=== PATIENT | male | born 1950 | race Caucasian/White ===

== ENCOUNTER → 2016-07-09 | Outpatient (CLI) | payer MEDICARE, OTHER ==
--- NOTE | 2016-07-09 15:35 | XR ---
EXAMINATION TYPE: XR lumbar spine with bend/flex DATE OF EXAM: 07/09/2016 COMPARISON: NONE HISTORY: Low back pain with TECHNIQUE: 3 view lumbar spine with weightbearing images FINDINGS: There 5 lumbar-type vertebral bodies. The pedicles are intact. Wedge deformity of L1 is pre sent. Some posterior endplate spurring at L1 is present inferiorly. Some inferior spurring is also pr esent L3. Alignment appears preserved with flexion and extension. Degenerative disc changes are present L4-5 posteriorly at L5-S1. Some mild superior endplate deformit y of L4 is present without anterior vertebral body height loss. IMPRESSION: 1. Compression deformity L1 of indeterminate age. 2. Alignment appears preserved through weight bearing flexion and extension views. 3. Superior endplate compression deformity L4. 4. Degenerative disc changes discussed above.
== END | disposition home or self-care (01) ==
LOC: RADXRMAIN 14:07
PROVIDERS: ATTEND Psychiatry & Neurology Neurology
DX: M47.816 Spondylosis without myelopathy or radiculopathy, lumbar region (principal); M43.8X6 Other specified deforming dorsopathies, lumbar region
CPT/HCPCS: 72114

== ENCOUNTER 2016-07-23 08:53 | Emergency (ER) | payer MEDICARE, OTHER ==
[2016-07-23 09:10] VITALS: RESP 18; TEMP 97.5
--- NOTE | 2016-07-23 09:22 | ED ---
Head Injury HPI - General Chief complaint: Head Injury Stated complaint: HEAD INJURY Time Seen by Provider: 07/23/16 09:13 Source: patient, RN notes reviewed Mode of arrival: wheelchair Limitations: no limitations - History of Present Illness Initial comments: 65-year-old male presents to the emergency department with a chief complaint of head injury. Patient states that he tripped over the curb yesterday and hit his head. Patient states since she's had a little bit of neck pain. Patient states he has just felt kind of off. Patient denies any pounding headache or any neurological deficits he just states that he has been feeling off so he thought maybe he has a concussion. Patient denies any use of blood thinners. Patient denies any other pain or injury from the incident. Patient states it was a supportive and fall. There is no lightheadedness dizziness chest pain or shortness of breath leading up to the event.Patient denies any recent fever, chills, shortness of breath, chest pain, back pain, abdominal pain, nausea vomiting, numbness or tingling, dysuria or hematuria, constipation or diarrhea, headaches or visual changes, or any other current symptoms. - Related Data Home Medications Medication Instructions Recorded Confirmed Hydrocodone/Acetaminophen [[place] 1 tab PO BID PRN 07/23/16 07/23/16 10-325 Tablet] Allergies/Adverse reactions: Allergies Allergy/AdvReac Type Severity Reaction Status Date / Time No Known Allergies Allergy Verified 07/23/16 10:04 Review of Systems ROS Statement: Those systems with pertinent positive or pertinent negative responses have been documented in the HPI. ROS Other: All systems not noted in ROS Statement are negative. Past Medical History Additional Past Medical History / Comment(s): hip fx History of Any Multi-Drug Resistant Organisms: None Reported Past Surgical History: Joint Replacement Additional Past Surgical History / Comment(s): facial surgery, testicular surgery Past Psychological History: No Psychological Hx Reported Smoking Status: Current every day smoker Past Alcohol Use History: Rare Past Drug Use History: Marijuana General Exam - General Exam Comments Initial Comments: General: The patient is awake and alert, in no distress, and does not appear acutely ill. Eye: Pupils are equal, round and reactive to light, extra-ocular movements are intact; there is normal conjunctiva bilaterally. No signs of icterus. Ears, nose, mouth and throat: There are moist mucous membranes and no oral lesions. Neck: The neck is supple, there is no tenderness. Cardiovascular: There is a regular rate and rhythm. No murmur, rub or gallop is appreciated. Respiratory: Lungs are clear to auscultation, respirations are non-labored, breath sounds are equal. No wheezes, stridor, rales, or rhonchi. Gastrointestinal: Soft, non-distended, non-tender abdomen without masses or organomegaly noted. There is no rebound or guarding present. No CVA tenderness. Bowel sounds are unremarkable. Back: There is no tenderness to palpation in the midline. There is no obvious deformity. No rashes noted. Musculoskeletal: Normal ROM, no tenderness, There is no pedal edema. There is no calf tenderness or swelling. Sensation intact. Pulses equal bilaterally 2+. Neurological: CN II-XII intact, There are no obvious motor or sensory deficits. Coordination appears grossly intact. Speech is normal. Skin: Skin is warm and dry and no rashes or lesions are noted. Psychiatric: Cooperative, appropriate mood & affect, normal judgment. Limitations: no limitations Course Vital Signs 07/23/16 09:06 Temperature 97.5 F L Pulse Rate 87 Respiratory 18 Rate Blood Pressure 146/85 O2 Sat by Pulse 97 Oximetry Medical Decision Making - Medical Decision Making 65-year-old male presents emergency Department chief complaint of fall with head and neck injury. At this time CT is reviewed and negative. We discussed care follow-up and return parameters. We discussed all patient's questions. He stated he understood he has a couple discharged home. He will be discharged. - Radiology Data Radiology results: report reviewed, image reviewed Disposition Clinical Impression: Concussion without loss of consciousness Disposition: HOME SELF-CARE Condition: Stable Instructions: Concussion (ED) Additional Instructions: Please use medication as discussed. Please follow up with family doctor if symptoms have not improved over the next two days. Please return to the emergency room if your symptoms increase or worsen or for any other concerns. Referrals: Nader Melara DO [STAFF PHYSICIAN] - 1-2 days Time of Disposition: 10:33
--- NOTE | 2016-07-23 10:19 | CT ---
EXAMINATION TYPE: CT brain cspine wo con DATE OF EXAM: 07/23/2016 COMPARISON: CT brain February 10, 2012. HISTORY: Fell yesterday and hit back of head with headache and neck pain. CT DLP: brain 987.8, Cervical 490.4 mGycm. Automated Exposure Control for Dose Reduction was Utilized . TECHNIQUE: CT scan of the head and cervical spine are performed without contrast. FINDINGS: There is no acute intracranial hemorrhage or midline shift identified. There is ventricul ar and sulcal prominence consistent with diffuse cerebral atrophy. There is low-attenuation in the pe riventricular white matter. There is more prominent area of encephalomalacia high left parietal lobe consistent with old infarct which is new from 2012. Soft tissue density bilateral external auditory c anals is felt to reflect cerumen. There is opacification of right anterior ethmoid sinuses new from p rior. Remainder paranasal sinuses are clear. Globes are intact. Calvarium is intact. Cervical spine is visualized in its entirety from C1 through upper thoracic levels and demonstrates s atisfactory alignment without evidence of acute fracture or dislocation. Prevertebral soft tissue ap pears within normal limits. The C1-C2 articulation is within normal limits on the coronal images. Osseous structures are demineralized. Vertebral body heights and disc space heights are fairly well-m aintained. No large posterior disc herniations are seen on sagittal images. Review of axial images sh ows multilevel left-sided uncovertebral facet degenerative changes particularly on the left. Underlyi ng emphysematous change is noted. IMPRESSION: 1. There is no acute fracture or dislocation evident in the cervical spine. 2. No acute intracranial hemorrhage or midline shift is seen. 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
[2016-07-23 10:54] VITALS: BP 133/70; PULSE 72
== END 2016-07-23 10:54 | disposition home or self-care (01) ==
LOC: EC 08:53
DX: S06.0X0A Concussion without loss of consciousness, initial encounter (principal); M54.2 Cervicalgia; F17.200 Nicotine dependence, unspecified, uncomplicated; W18.09XA Striking against other object with subsequent fall, initial encounter
CPT/HCPCS: 70450; 72125; 99283

== ENCOUNTER → 2016-07-28 | Outpatient (CLI) | payer MEDICARE, OTHER ==
--- NOTE | 2016-07-28 16:58 | MR ---
EXAMINATION TYPE: MR lumbar spine wo con DATE OF EXAM: 07/28/2016 COMPARISON: Lumbar spine 07/09/2016 HISTORY: Pain, low back pain, M 54.5 TECHNIQUE: Multiplanar, multisequence images of the lumbar spine were acquired. Exam is limited by patient's kari lity to cooperate with exam. Abdominal aorta shows a measurement of approximately 3.6 cm at the level of the hiatus. L1-L2: Minimal retrolisthesis L1 on L2, posterior extension of endplate disc complex causes anterior mass effect on the thecal sac, mild central stenosis. No definite foraminal encroachment. Inferior en dplate shows depression, there is likely a Schmorl's node. There is loss of disc height and signal. L2-L3: Facet arthropathy changes present, no significant disc herniation, foraminal encroachment, or central stenosis. L3-L4: Loss of disc height and signal is present. No definite foraminal encroachment or central steno sis. Facet arthropathy with hypertrophy of the ligamentum flavum encroaches on the lateral recesses. No cyst sizable disc herniation. L4-L5: There is near complete loss of disc space, loss of disc height and signal. No significant fora vincent encroachment or central stenosis. Facet arthropathy changes are present. Anterior aspect of the superior endplate L2 shows mild depression which may represent a Schmorl's node. L5-S1: There is facet arthropathy change. No significant central stenosis or foraminal encroachment. Loss of disc signal compatible disc desiccation. No evident disc herniation. Lumbar segments are intact. No paraspinal masses are identified. Conus medullaris has a normal appe arance. IMPRESSION: The exam is limited. There are degenerative disc changes, facet arthropathy. Motion on the exam. Mult ilevel Schmorl's node formation. There is aortic aneurysm.
== END | disposition home or self-care (01) ==
LOC: RADMRIMAIN 14:33
PROVIDERS: ATTEND Psychiatry & Neurology Pain Medicine
DX: M47.816 Spondylosis without myelopathy or radiculopathy, lumbar region (principal); M46.86 Other specified inflammatory spondylopathies, lumbar region
CPT/HCPCS: 72148

== ENCOUNTER 2016-09-18 21:19 | Observation (INO) | payer MEDICARE, OTHER ==
[2016-09-18] MEDS ORDERED: ASPIRIN 81 MG PO STA (22:00)
[2016-09-18 22:13] LABS: Basophils % (A) 0 %; CH 31.7; CHCM 33.4; Eosinophils # (A) 0.8 k/uL (0-0.7); Eosinophils % (A) 8 %; HCT 47.7 % (39.0-53.0); HDW 2.26; HGB 15.8 gm/dL (13.0-17.5); Luc # (Auto) 0.17; Luc % (Auto) 2; Lymphocytes # (A) 2.3 k/uL (1.0-4.8); Lymphocytes % (A) 23 %; MCH 31.7 pg (25.0-35.0); MCHC 33.2 g/dL (31.0-37.0); MCV 95.4 fL (80.0-100.0); Mean Platelet Volume 7.4; Monocytes # (A) 0.6 k/uL (0-1.0); Monocytes % (A) 7 %; Neutrophils % (A) 60 %; RDW 14.2 % (11.5-15.5); WBC 9.9 k/uL (3.8-10.6)
[2016-09-18 22:22] LABS: ALT 24 U/L (21-72); AST 20 U/L (17-59); Alkaline Phosphatase 113 U/L (38-126); Anion Gap 8 mmol/L; Blood Urea Nitrogen 11 mg/dL (9-20); Calcium 8.4 mg/dL (8.4-10.2); Carbon Dioxide 24 mmol/L (22-30); Chloride 109 mmol/L (98-107); Glucose 104 mg/dL (74-99); Magnesium 1.7 mg/dL (1.6-2.3); Non-African American GFR(MDRD) >60 (>60 ml/min/1.73 sqM); Potassium 4.2 mmol/L (3.5-5.1); Sodium 141 mmol/L (137-145); Total Bilirubin 0.4 mg/dL (0.2-1.3); Total Protein 6.3 g/dL (6.3-8.2)
--- NOTE | 2016-09-18 22:22 | XR ---
EXAMINATION TYPE: XR chest 1V portable DATE OF EXAM: 09/18/2016 COMPARISON: 02/10/2012 HISTORY: Pain TECHNIQUE: Single frontal view of the chest is obtained. FINDINGS: There is no focal air space opacity, pleural effusion, or pneumothorax seen. The cardiac silhouette size is within normal limits. The osseous structures are intact. IMPRESSION: No acute process.
[2016-09-18 22:30] LABS: Partial Thromboplastin Time 23.5 sec (22.0-30.0); Prothrombin Time 10.2 sec (9.0-12.0)
--- NOTE | 2016-09-18 22:36 | ED ---
Chest Pain HPI - General Chief Complaint: Chest Pain Stated Complaint: chest pain/body aches Time Seen by Provider: 09/18/16 21:49 Source: patient Mode of arrival: ambulatory Limitations: no limitations - History of Present Illness Initial Comments: This patient is 65-year-old man with history of COPD who presents with episodes of left chest pain and some shortness of breath that he attributes to his COPD. The patient describes the pain as a tightness. He has not noted any worsening or relieving factors. He is been having a number of episodes over the past days. MD Complaint: chest pain -: hour(s) Onset: during rest Pain Location: left chest Severity: moderate Quality: aching Consistency: constant Improves With: nothing Worsens With: nothing Other Symptoms: cough Treatments Prior to Arrival: none - Related Data Home Medications Medication Instructions Recorded Confirmed Hydrocodone/Acetaminophen [[place] 1 tab PO BID PRN 07/23/16 09/18/16 10-325 Tablet] Allergies Allergy/AdvReac Type Severity Reaction Status Date / Time No Known Allergies Allergy Verified 09/18/16 22:33 Review of Systems ROS Statement: Those systems with pertinent positive or pertinent negative responses have been documented in the HPI. ROS Other: All systems not noted in ROS Statement are negative. Constitutional: Denies: fever, chills Respiratory: Reports: cough. Denies: dyspnea, wheezes Cardiovascular: Reports: chest pain. Denies: palpitations, edema, syncope Gastrointestinal: Denies: abdominal pain, nausea, vomiting Genitourinary: Denies: dysuria, hematuria Musculoskeletal: Denies: back pain Skin: Denies: rash Neurological: Denies: headache, weakness, numbness EKG Findings - EKG Comments: EKG Findings:: Possible old inferior infarct. - EKG Results: EKG: interpreted by ERMD, sinus rhythm, normal axis, normal ST/T EKG shows: tachycardia (Rate approximately 104 bpm) - PA, Pacemaker, Normal: Myocardial infarction: inferior PA (old age indeterminate) (Q wave in lead 3) Past Medical History Additional Past Medical History / Comment(s): hip fx History of Any Multi-Drug Resistant Organisms: None Reported Past Surgical History: Joint Replacement Additional Past Surgical History / Comment(s): facial surgery, testicular surgery, knee left Past Psychological History: No Psychological Hx Reported Smoking Status: Current every day smoker Past Alcohol Use History: Rare Past Drug Use History: Marijuana - Past Family History Father Family Medical History: Cancer Additional Family Medical History / Comment(s): colon CA Mother Family Medical History: CVA/TIA Additional Family Medical History / Comment(s): Fall with subdural hematoma Brother(s) Additional Family Medical History / Comment(s): committed suicide General Exam Limitations: no limitations General appearance: alert, in no apparent distress Head exam: Present: atraumatic, normocephalic, normal inspection Eye exam: Present: normal appearance. Absent: scleral icterus, conjunctival injection Respiratory exam: Present: normal lung sounds bilaterally. Absent: respiratory distress, wheezes, rales, rhonchi, stridor Cardiovascular Exam: Present: regular rate, normal rhythm, normal heart sounds. Absent: systolic murmur, diastolic murmur, rubs, gallop GI/Abdominal exam: Present: soft. Absent: distended, tenderness, guarding, rebound, mass Extremities exam: Present: normal inspection, normal capillary refill. Absent: pedal edema, calf tenderness Back exam: Present: normal inspection. Absent: CVA tenderness (R), CVA tenderness (L) Neurological exam: Present: alert Skin exam: Present: warm, dry, intact, normal color. Absent: rash Course Vital Signs 09/18/16 09/18/16 09/18/16 21:22 21:47 22:39 Temperature 98.7 F Pulse Rate 108 H 90 Respiratory 18 22 18 Rate Blood Pressure 126/77 130/77 O2 Sat by Pulse 96 97 Oximetry 09/19/16 09/19/16 09/19/16 00:19 01:24 02:31 Temperature 98.1 F Pulse Rate 79 74 88 Respiratory 18 16 18 Rate Blood Pressure 134/77 132/87 122/68 O2 Sat by Pulse 98 96 100 Oximetry Disposition Clinical Impression: Chest pain Disposition: ADMITTED IP TO THIS HOSP Condition: Fair
[2016-09-18] MEDS ORDERED: RX INFO: IV CONTRAST WAS GIVEN 1 EACH MISC MISCELLANE PRN (23:44)
--- NOTE | 2016-09-19 01:02 | CT ---
EXAM: CT Angiography Chest With Intravenous Contrast CLINICAL HISTORY: Reason: Pain TECHNIQUE: Axial computed tomographic angiography images of the chest with intravenous contrast using pulmonary embolism protocol. DLP is 381.20 mGy-cm. This CT exam was performed using one or more of the following dose reduction techniques: automated exposure control, adjustment of the mA and/or kV according to patient size, and/or use of iterative reconstruction technique. MIP reconstructed images were created and reviewed. COMPARISON: 09/18/16 FINDINGS: Pulmonary arteries: Unremarkable. No pulmonary embolism. Aorta: Mild atherosclerosis of the thoracic aorta. No thoracic aortic aneurysm or dissection. Lungs: Mild left basilar opacities. There is a 8 mm nodule along the right minor fissure (image [id number]) and 6 mm nodule in the left lower lobe adjacent to the fissure (image 7-17).. Mild peribronchial thickening may be related to airway disease. Mild centrilobular emphysema and atelectatic changes. Pleural space: Small left pleural effusion. No pneumothorax. Heart: Unremarkable Mediastinum: Moderate hiatal hernia. Mild esophageal wall thickening. Bones/joints: Age-indeterminate compression deformities in the spine, may be chronic. Compare to priors if available. Soft tissues: Unremarkable. Lymph nodes: Small mediastinal and hilar lymph nodes. Upper abdomen: Tiny hepatic hypodensity. IMPRESSION: 1. No evidence of pulmonary embolism or aortic dissection. 2. Small left pleural effusion with left basilar opacities which may represent atelectasis, infiltrate, or early infarct. Mild peribronchial thickening. Bilateral pulmonary nodules measuring up to 8 mm. Compare to prior studies if available or consider followup imaging per Fleischner Society recommendations. 3. Moderate hiatal hernia. Mild esophageal wall thickening. Correlate clinically for esophagitis.
[2016-09-19] MEDS ORDERED: NITROGLYCERIN SL TABS 0.4 MG TAB SUBLINGUAL PRN (01:33)
[2016-09-19] MEDS ORDERED: ALBUTEROL NEBULIZED 2.5 MG/3 ML INHALATION PRN (01:36)
[2016-09-19 03:20] VITALS: BMI 25.7
[2016-09-19 03:56] VITALS: RESP 16
[2016-09-19 04:57] LABS: Creatine Kinase 79 U/L (55-170)
[2016-09-19 05:09] LABS: Creatine Kinase MB 0.7 ng/mL (0.0-2.4); Troponin I <0.012 ng/mL (0.000-0.034)
[2016-09-19] MEDS ORDERED: ASPIRIN 325 MG TAB PO SCH (09:00)
[2016-09-19] MEDS ORDERED: REGADENOSON 0.4 MG/5 ML SYRINGE IV ONE (09:21)
[2016-09-19] MEDS ORDERED: AMINOPHYLLINE 500 MG/20 ML VIAL IV PRN (09:21)
[2016-09-19 10:27] LABS: Creatine Kinase 73 U/L (55-170)
[2016-09-19] MEDS ORDERED: METOPROLOL TARTRATE 25 MG TAB PO STA (10:30)
--- NOTE | 2016-09-19 10:33 | P.CRDCN ---
History of Present Illness Consult date: 09/19/16 Consult reason: chest pain History of present illness: This is a 65-year-old male with history of COPD, CVA/TIA, osteoarthritis and asthma. He states he has no significant cardiac history, although he does not follow regularly with her primary care doctor. He states he was driving around yesterday and he had acute onset of left sided chest pain. The pain has persisted and is still ongoing at this time. The pain is described as a dull ache to the left chest wall that is sometimes intensified with deep inspiration but not always. The patient has a chronic tobacco abuser and has been 50 years. He states that the pain is associated with shortness of breath at times as well. D-dimer was elevated at 2.01 and a CTA was performed. It was negative for pulmonary embolism. It showed a small left pleural effusion with left basilar opacities which may represent atelectasis versus infiltrate or early infarct. Bilateral pulmonary nodules identified. Patient states he has never seen a cloth packer for any reason he denies any history of CAD has never had an TX. Hemoglobin is 15.8, d-dimer 2.01, potassium 4.2, magnesium 1.7, nightly 11, creatinine 0.96 and troponin are negative 2. He currently takes [place] as his only home medication for chronic pain. He is homeless. Review of Systems REVIEW OF SYSTEMS: Patient denies diaphoresis. He denies headache, dizziness, blurred vision, double vision. Patient denies any stomach discomfort. No nausea , vomiting. No hematochezia. No hematemesis. Denies any black stools or blood in his stools. No syncope. No palpitations. No cough. No recent fever or chills. Denies dysuria or hematuria. No muscle weakness or numbness. Past Medical History Past Medical History: Asthma, COPD, CVA/TIA, Osteoarthritis (OA) Additional Past Medical History / Comment(s): hip fx History of Any Multi-Drug Resistant Organisms: None Reported Past Surgical History: Joint Replacement Additional Past Surgical History / Comment(s): facial surgery, testicular surgery, knee left Past Anesthesia/Blood Transfusion Reactions: No Reported Reaction, Motion Sickness Past Psychological History: No Psychological Hx Reported Smoking Status: Current every day smoker (50 years) Past Alcohol Use History: Rare Past Drug Use History: Marijuana - Past Family History Father Family Medical History: Cancer Additional Family Medical History / Comment(s): colon CA Mother Family Medical History: CVA/TIA Additional Family Medical History / Comment(s): Fall with subdural hematoma Brother(s) Additional Family Medical History / Comment(s): committed suicide Medications and Allergies Home Medications Medication Instructions Recorded Confirmed Type Hydrocodone/Acetaminophen [[place] 1 tab PO BID PRN 07/23/16 09/18/16 History 10-325 Tablet] Allergies Allergy/AdvReac Type Severity Reaction Status Date / Time No Known Allergies Allergy Verified 09/18/16 22:33 Physical Exam Vitals: Vital Signs Temp Pulse Pulse Resp BP BP Pulse Ox 09/19/16 03:00 97.7 F 76 16 133/81 93 L 09/19/16 02:53 18 09/19/16 02:31 98.1 F 88 18 122/68 100 09/19/16 01:24 74 16 132/87 96 09/19/16 00:19 79 18 134/77 98 09/18/16 22:39 90 18 130/77 97 09/18/16 21:47 22 09/18/16 21:22 98.7 F 108 H 18 126/77 96 Intake and Output 09/18/16 09/19/16 09/19/16 22:59 06:59 14:59 Intake Total 0 Balance 0 Intake: Oral 0 Other: Voiding Method Toilet # Voids 1 Weight 86.183 kg 83.915 kg GENERAL: This is a 65-year-old male in no apparent distress at the time of my examination. He appears fatigued. HEENT: Head is atraumatic, normocephalic. Pupils are equal, round. Sclerae anicteric. Conjunctivae are clear. Mucous membranes of the mouth are moist. Neck is supple. There is no jugular venous distention. No carotid bruit is heard. LUNGS: Coarse. No chest wall tenderness is noted on palpation or with deep breathing. No wheezing or rales. HEART: Regular rate and rhythm without murmurs, rubs or gallops. S1 and S2 heard. ABDOMEN: Soft, nontender. Bowel sounds are heard. No organomegaly noted. EXTREMITIES: 2+ peripheral pulses with no evidence of peripheral edema and no calf tenderness noted. NEUROLOGIC: Patient is awake, alert and oriented x3. Results 09/18/16 21:45 09/18/16 21:45 Cardiac Enzymes 09/18/16 09/18/16 09/19/16 Range/Units 21:45 21:45 03:38 AST 20 (17-59) U/L CK-MB (CK-2) 0.7 (0.0-2.4) ng/mL Troponin I <0.012 <0.012 (0.000-0.034) ng/mL Coagulation 09/18/16 Range/Units 21:45 PT 10.2 (9.0-12.0) sec APTT 23.5 (22.0-30.0) sec CBC 09/18/16 Range/Units 21:45 WBC 9.9 (3.8-10.6) k/uL RBC 5.00 (4.30-5.90) m/uL Hgb 15.8 (13.0-17.5) gm/dL Hct 47.7 (39.0-53.0) % Plt Count 289 (150-450) k/uL Comprehensive Metabolic Panel 09/18/16 Range/Units 21:45 Sodium 141 (137-145) mmol/L Potassium 4.2 (3.5-5.1) mmol/L Chloride 109 H (98-107) mmol/L Carbon Dioxide 24 (22-30) mmol/L BUN 11 (9-20) mg/dL Creatinine 0.96 (0.66-1.25) mg/dL Glucose 104 H (74-99) mg/dL Calcium 8.4 (8.4-10.2) mg/dL AST 20 (17-59) U/L ALT 24 (21-72) U/L Alkaline Phosphatase 113 (38-126) U/L Total Protein 6.3 (6.3-8.2) g/dL Albumin 3.4 L (3.5-5.0) g/dL Current Medications Generic Name Dose Route Start Last Admin Trade Name Freq PRN Reason Stop Dose Admin Albuterol Sulfate 2.5 mg 09/19/16 01:36 Ventolin Nebulized INHALATION RT-Q6H PRN Dyspnea Aspirin 325 mg 09/19/16 09:00 Aspirin PO DAILY KRYSTAL Miscellaneous Information 1 each 09/18/16 23:44 Rx Info: Iv Contrast Was Given MISCELLANE 09/20/16 23:44 DAILY PRN Per Protocol Nitroglycerin 0.4 mg 09/19/16 01:33 Nitrostat SUBLINGUAL Q5M PRN Chest Pain Intake and Output 09/18/16 09/19/16 09/19/16 22:59 06:59 14:59 Intake Total 0 Balance 0 Intake: Oral 0 Other: Voiding Method Toilet # Voids 1 Weight 86.183 kg 83.915 kg 09/18/16 21:45 09/18/16 21:45 - EKG Interpretation EKG: sinus rhythm, normal ST/T EKG shows: tachycardia (Q-wave abnormality noted in the inferior leads, possible old TX, no old for comparison.) Assessment and Plan Plan: ASSESSMENT 1. Chest pain at rest, persistent, atypical. 2. History of COPD 3. Chronic tobacco abuse 4. Bilateral pulmonary nodules PLAN We will perform an echocardiogram and a Shari scan to assess for left ventricular function and coronary artery ischemia. Start the patient on metoprolol 25 mg by mouth daily. We will check a lipid panel as well as a TSH. Recommend a pulmonary consult to assess lung function and initiate care. Nurse Practitioner note has been reviewed, I agree with a documented findings and plan of care. Patient was seen and examined.
[2016-09-19 10:40] LABS: Creatine Kinase MB 0.7 ng/mL (0.0-2.4); Troponin I <0.012 ng/mL (0.000-0.034)
--- NOTE | 2016-09-19 11:59 | EST ---
DATE OF SERVICE: 09/19/2016 TYPE OF REPORT: LEXISCAN CARDIOLITE STRESS TEST INDICATION: Chest pain. BASELINE HEART RATE: 82 BASELINE BLOOD PRESSURE: 119/85 MAXIMUM HEART RATE: 101 MAXIMUM BLOOD PRESSURE: 135/82 85% MPHR: 155 100% MPHR: 132 METS: - MAXIMUM STAGE REACHED: - TOTAL EXERCISE TIME: - Baseline EKG revealed a normal sinus rhythm with nondiagnostic inferior Q- waves. There was some sinus arrhythmia. With the Lexiscan administration, heart rate changed from 82 to 101 beats per minute. Blood pressure changed from 119/85 to 135/82. Rare PVC's were noted. No significant ST segment changes were noted. IMPRESSION: 1. By EKG criteria, this is an unremarkable Lexiscan stress test. 2. The nuclear scan results which are more pertinent, will be reported by the radiologist. SATISH
--- NOTE | 2016-09-19 14:33 | NM ---
EXAMINATION TYPE: NM stress lexiscan cardiolite DATE OF EXAM: 09/19/2016 COMPARISON: NONE HISTORY: Chest pain TECHNIQUE: After the intravenous administration of 11 mCi Tc 99m Sestamibi - Cardiolite resting SPEC T images acquired 50 minutes post injection. The patient received 0.4mg Lexiscan, 24.9 mCi Tc 99m Sestamibi - Stress images obtained [address] injection FINDINGS: Review of stress and rest SPECT images demonstrates some mild decreased radiopharmaceutical uptake al brittany the anteroseptal left ventricle towards the apex on stress as compared to rest images. Gated parker lysis shows normal wall motion with an estimated left ventricular ejection fraction of 68 %. IMPRESSION: Pharmacologically induced left ventricular myocardial ischemia is questioned as described.
--- NOTE | 2016-09-19 15:05 | P.PN ---
Progress Note - Text Lexiscan stress test performed reveals decreased radiopharmaceutical uptake along the anterior-septal left ventricle towards the apex compared to the rest images. Gated analysis shows normal wall motion with an estimated left ventricular ejection fraction of 68%. These results were discussed with Dr. GABY Sinclair. It is his opinion that the patient is stable for discharge home at this time to follow-up with him in the office on Thursday at 4 PM. He will be sent home on a beta cesar metoprolol 25 mg by mouth twice a day and aspirin 81 mg by mouth daily. The results of this scan were discussed with the patient and he verbalized understanding. I explained to the patient the importance of his follow-up appointment and he verbalized understanding. I asked the patient if there is any family I can call to discuss the findings and he declined. He is currently waiting a pulmonary consultation at this time. Nurse Practitioner note has been reviewed, I agree with a documented findings and plan of care. Patient was seen and examined.
--- NOTE | 2016-09-19 15:42 | P.HPIM ---
History of Present Illness Pleasant 65-year-old gentleman came in with complaints of dizziness never had any syncopal episode patient had a near syncopal episode. Patient denied any diarrhea. Patient denied any fever chills. Patient does not have any signs or symptoms of infection at this point of time. Patient chest x-ray did not show any significant abnormal EKG showed sinus rhythm. She in the game and the history saying that at neurology's office his blood pressure is low yesterday. 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 Orthostatic vitals are negative. Patient was a valid by cardiology and patient had a echocardiac grams the past which are essentially within normal limits and cardiology cleared him for discharge. Patient was treated for dehydration with IV fluids. And patient is clinically doing well and patient will be discharged today. Patient was last to check the blood pressure and vitals at home and take it to cardiology office since is in metoprolol he may be bradycardic which we are not seeing here which can contribute to his syncopal episode. Although I 'm not discontinued this medication due to his history of mitral infarction in the past and there is no evidence of bradycardia since his admission here. Review of Systems REVIEW OF SYSTEMS: CONSTITUTIONAL: No fever, no malaise, no fatigue. HEENT: No recent visual problems or hearing problems. Denied any sore throat. CARDIOVASCULAR: No chest pain, orthopnea, PND, no palpitations, PULMONARY: No shortness of breath, no cough, no hemoptysis. GASTROINTESTINAL: No diarrhea, no nausea, no vomiting, no abdominal pain. Normoactive bowel sounds. NEUROLOGICAL: No headaches, no weakness, no numbness. HEMATOLOGICAL: Denies any bleeding or petechiae. GENITOURINARY: Denies any burning micturition, frequency, or urgency. MUSCULOSKELETAL/RHEUMATOLOGICAL: Denies any joint pain, swelling, or any muscle pain. ENDOCRINE: Denies any polyuria or polydipsia. The rest of the 14-point review of systems is negative. Past Medical History Past Medical History: Asthma, COPD, CVA/TIA, Osteoarthritis (OA) Additional Past Medical History / Comment(s): hip fx History of Any Multi-Drug Resistant Organisms: None Reported Past Surgical History: Joint Replacement Additional Past Surgical History / Comment(s): facial surgery, testicular surgery, knee left Past Anesthesia/Blood Transfusion Reactions: No Reported Reaction, Motion Sickness Past Psychological History: No Psychological Hx Reported Smoking Status: Current every day smoker (50 years) Past Alcohol Use History: Rare Past Drug Use History: Marijuana - Past Family History Father Family Medical History: Cancer Additional Family Medical History / Comment(s): colon CA Mother Family Medical History: CVA/TIA Additional Family Medical History / Comment(s): Fall with subdural hematoma Brother(s) Additional Family Medical History / Comment(s): committed suicide Medications and Allergies Home Medications Medication Instructions Recorded Confirmed Type Hydrocodone/Acetaminophen [[place] 1 tab PO BID PRN 07/23/16 09/18/16 History 10-325 Tablet] Allergies Allergy/AdvReac Type Severity Reaction Status Date / Time No Known Allergies Allergy Verified 09/18/16 22:33 Physical Exam Vitals: Vital Signs Temp Pulse Pulse Resp BP BP Pulse Ox 09/19/16 12:00 98.0 F 85 16 134/94 96 09/19/16 08:05 16 09/19/16 08:00 98.3 F 83 16 136/82 92 L 09/19/16 03:00 97.7 F 76 16 133/81 93 L 09/19/16 02:53 18 09/19/16 02:31 98.1 F 88 18 122/68 100 09/19/16 01:24 74 16 132/87 96 09/19/16 00:19 79 18 134/77 98 09/18/16 22:39 90 18 130/77 97 09/18/16 21:47 22 09/18/16 21:22 98.7 F 108 H 18 126/77 96 Intake and Output 09/19/16 09/19/16 09/19/16 06:59 14:59 22:59 Intake Total 0 Balance 0 Intake: Oral 0 Other: Voiding Method Toilet Toilet # Voids 1 Weight 83.915 kg PHYSICAL EXAMINATION: GENERAL: The patient is alert and oriented x3, not in any acute distress. Well developed, well nourished. HEENT: Pupils are round and equally reacting to light. EOMI. No scleral icterus. No conjunctival pallor. Normocephalic, atraumatic. No pharyngeal erythema. No thyromegaly. CARDIOVASCULAR: S1 and S2 present. No murmurs, rubs, or gallops. PULMONARY: Chest is clear to auscultation, minimal expiratory wheeze was appreciated on the left lower lung bases. ABDOMEN: Soft, nontender, nondistended, normoactive bowel sounds. No palpable organomegaly. MUSCULOSKELETAL: No joint swelling or deformity. EXTREMITIES: No cyanosis, clubbing, or pedal edema. NEUROLOGICAL: Gross neurological examination did not reveal any focal deficits. SKIN: No rashes. Results CBC & Chem 7: 09/18/16 21:45 09/18/16 21:45 Labs: Abnormal Lab Results - Last 24 Hours (Table) 09/18/16 09/18/16 09/18/16 Range/Units 21:45 21:45 21:45 Eosinophils # 0.8 H (0-0.7) k/uL D-Dimer 2.01 H (<0.60) mg/L FEU Chloride 109 H (98-107) mmol/L Glucose 104 H (74-99) mg/dL Albumin 3.4 L (3.5-5.0) g/dL Thrombosis Risk Factor Assmnt - Choose All That Apply Other Risk Factors: Yes Each Risk Factor Represents 2 Points: Age 61-74 years Thrombosis Risk Factor Assessment Total Risk Factor Score: 2 Thrombosis Risk Factor Assessment Level: Low Risk Assessment and Plan Plan: #1 near syncopal episode and lightheadedness: Probably due to intravascular and patient received IV fluids patient will be discharged today no changes in medications are being made today. #2 possibility of COPD patient was never diagnosed extensive counseling regarding tobacco use was provided and patient will be discharged today on Symbicort and patient already takes alcohol withdrawal at home. #3 coronary artery disease for which patient is on beta cesar aspirin and his rest of the home medications will be continued.
--- NOTE | 2016-09-19 15:43 | P.DS ---
Providers Date of admission: 09/19/16 01:35 Attending physician: Bradley Gould Consults: 09/19/16 01:33 Consult Physician Routine Consulting Provider: Mansoor Wan Consult Reason/Comments: chest pain Do you want consulting provider notified?: Yes Primary care physician: Nader Melara [facility] Course: Please refer to HPI Patient Condition at Discharge: Fair Plan - Discharge Summary New Discharge Prescriptions: New Aspirin 81 mg PO DAILY #30 chewable Metoprolol Tartrate [Lopressor] 12.5 mg PO BID #60 dose No Action Hydrocodone/Acetaminophen [[place] 10-325 Tablet] 1 tab PO BID PRN PRN Reason: Pain Discharge Medication List Hydrocodone/Acetaminophen [[place] 10-325 Tablet] 1 tab PO BID PRN 07/23/16 [ History] Aspirin 81 mg PO DAILY #30 chewable 09/19/16 [Rx] Metoprolol Tartrate [Lopressor] 12.5 mg PO BID #60 dose 09/19/16 [Rx] Follow up Appointment(s)/Referral(s): Seferino Sinclair MD [STAFF PHYSICIAN] - 09/22/16 4:00 pm (Appt is Thursday at 4pm. ) Nader Melara DO [Primary Care Provider] - 3 Days Karoline Lauren MD [STAFF PHYSICIAN] - 1 Week Discharge Disposition: HOME SELF-CARE
[2016-09-19 16:11] VITALS: BP 113/58; PULSE 77; TEMP 98.5
--- NOTE | 2016-09-19 19:33 | ECHOF ---
Referral Reason:chest pain MEASUREMENTS -------- HEIGHT: 157.5 cm WEIGHT: 83.9 kg BP: 136/88 IVSd: 1.1 cm (0.6 - 1.1) LVIDd: 3.2 cm (3.9 - 5.3) LVPWd: 1.3 cm (0.6 - 1.1) IVSs: 1.3 cm LVIDs: 2.6 cm LVPWs: 1.3 cm LAESV Index (A-L): 24.81 ml/m Ao Diam: 3.8 cm (2.0 - 3.7) AV Cusp: 2.1 cm (1.5 - 2.6) LA Diam: 3.4 cm (2.7 - 3.8) MV EXCURSION: 18.395 mm (> 18.000) MV EF SLOPE: 71 mm/s (70 - 150) EPSS: 1.0 cm MV E Manish: 0.78 m/s MV DecT: 369 ms MV A Manish: 0.98 m/s MV E/A Ratio: 0.80 RAP: 5.00 mmHg RVSP: 21.91 mmHg FINDINGS -------- Sinus rhythm. This was a technically adequate study. Left ventricular wall thickness is normal. Overall left ventricular systolic function is normal with, an EF between 55 - 60 %. The right ventricle is normal in size. Normal LA size by volume 22+/-6 ml/m2. The right atrial size is normal. There is mild aortic valve sclerosis. There is no evidence of aortic regurgitation. Mild mitral annular calcification present. Mild mitral regurgitation is present. Mild tricuspid regurgitation present. There is no evidence of pulmonary hypertension. The right ventricular systolic pressure, as measured by Doppler, is 21.91mmHg. There is no pulmonic regurgitation present. The aortic root size is normal. There is no pericardial effusion. CONCLUSIONS -------- 1. Left ventricular wall thickness is normal. 2. Overall left ventricular systolic function is normal with, an EF between 55 - 60 %. 3. There is mild aortic valve sclerosis. 4. Mild mitral annular calcification present. 5. Mild mitral regurgitation is present. 6. Mild tricuspid regurgitation present. 7. There is no evidence of pulmonary hypertension. 8. The right ventricular systolic pressure, as measured by Doppler, is 21.91mmHg. 9. There is no pulmonic regurgitation present. SENIOR [employer] ENGINEER: Samina Reyes RDCS
== END 2016-09-19 17:02 | disposition home or self-care (01) ==
LOC: EC 21:19 → 3OBS 09-19 01:35
PROVIDERS: ADMIT Internal Medicine; ATTEND Internal Medicine
DX: R07.89 Other chest pain (principal); R55 Syncope and collapse; R06.02 Shortness of breath; R42 Dizziness and giddiness; I25.10 Atherosclerotic heart disease of native coronary artery without angina pectoris; R91.8 Other nonspecific abnormal finding of lung field; R79.89 Other specified abnormal findings of blood chemistry; G89.29 Other chronic pain; Z59.0 Homelessness; F17.200 Nicotine dependence, unspecified, uncomplicated; Z80.0 Family history of malignant neoplasm of digestive organs; Z86.73 Personal history of transient ischemic attack (TIA), and cerebral infarction without residual deficits
CPT/HCPCS: 99285 ×2; 36415; 93005; 93017; 93306; 85379; 80061; 80053; 84443; 82550; 82553; 83735; 84484 ×2; 85025; 85610; 85730; 71010; 71275; 78452; G0378; A9500; Q9967; J2785

== ENCOUNTER 2016-09-29 06:21 | Day surgery (SDC) | payer MEDICARE, OTHER ==
[~2016-09-29 06:21] MED LIST: ALPRAZolam 0.25 MG TAB PO PRN; ALPRAZolam 0.5 MG TAB PO PRN; ASPIRIN 325 MG TAB PO STA; ATORVASTATIN 80 MG TAB PO STA; NITROGLYCERIN SL TABS 0.4 MG TAB SUBLINGUAL PRN; SODIUM CHLORIDE 0.9% 1,000 ML in EMPTY BAG 1 BAG IV ONE
[2016-09-29 09:34] VITALS: TEMP 97.7
[2016-09-29] MEDS ORDERED: VERAPAMIL 2.5 MG/ML 2 ML AMP ONE (10:01)
[2016-09-29] MEDS ORDERED: LIDOCAINE 2% INJ 20 MG/ML (20 ML MDV) ONE (10:01)
[2016-09-29] MEDS ORDERED: MIDAZOLAM 2 MG/2 ML VIAL ONE (10:31)
[2016-09-29] MEDS ORDERED: diphenhydrAMINE 50 MG/ML 1 ML VIAL ONE (10:31)
[2016-09-29] MEDS ORDERED: diphenhydrAMINE 50 MG/ML 1 ML VIAL IVP ONE (11:08)
[2016-09-29] MEDS ORDERED: MIDAZOLAM 2 MG/2 ML VIAL IV ONE (11:08)
[2016-09-29] MEDS ORDERED: LIDOCAINE 2% INJ 20 MG/ML SQ ONE (11:12)
[2016-09-29] MEDS ORDERED: HEPARIN SODIUM 1,000 UN/ML (10ML VL) ONE (11:13)
[2016-09-29] MEDS: VERAPAMIL SYRINGE (5 MG/10 ML) IV ONE ×2 (11:13→11:30)
[2016-09-29] MEDS ORDERED: HEPARIN SODIUM 1,000 UN/ML (10ML VL) IV ONE (11:14)
[2016-09-29] MEDS ORDERED: NITROGLYCERIN SL TABS 0.4 MG TAB SUBLINGUAL ONE ×2 (11:16)
[2016-09-29] MEDS ORDERED: METOPROLOL TARTRATE 5 MG/5 ML VIAL IVP ONE ×2 (11:26→11:30)
[2016-09-29] MEDS ORDERED: IOHEXOL 350 MG/ML 100 ML BOTTLE INJ ONE (11:31)
[2016-09-29 12:35] VITALS: RESP 18
[2016-09-29 16:26] VITALS: BP 109/63; PULSE 75
--- NOTE | 2016-09-30 07:54 | CC ---
DATE OF SERVICE: 09/29/2016 PROCEDURE: Left heart catheterization, coronary angiography. PERFORMED BY: Dr. Adrian Sinclair. CLINICAL INFORMATION: Mr. Kris Jackson is a 65-year-old gentleman who was seen by me in [facility] last week. Had a positive stress test. Was sent home. There was a lateral wall reversible defect raising the possibility of ischemia. The patient is a smoker, has hypertension and is very poorly compliant and does not take his medications regularly. He was advised coronary angiography and brought in for the procedure relatively. Risks, benefits, options and rationale were explained to the patient. PROCEDURE NOTE: Under local anesthesia and strict aseptic precautions, a 6 Angolan introducer was placed in the right radial artery. Under strict aseptic precautions and local anesthesia, a 6 Angolan introducer was placed in the right radial artery. A glidewire was used to gain access to ascending aorta. An Ultimate 1 catheter was used to perform selective coronary angiography and the same catheter was used to check LV pressures. LV gram was not performed. The sheath was taken out and TR band applied as per protocol. The saturation of the fingers of the right hand was 93%. The patient tolerated the procedure well without complications. The results were discussed with the patient and family. He will be discharged later on today. He has no obstructive CAD of significance. Risk factor modification including smoking cessation was advised. Moderate conscious sedation was provided for a total duration of 25 minutes. CARDIAC CATHETERIZATION FINDINGS: The left ventricular end-diastolic pressure was about 14 mmHg. The quality of tracing was suboptimal. There was no gradient across the aortic valve. CORONARY ANGIOGRAPHY FINDINGS: RIGHT CORONARY ARTERY: A very dominant vessel. It distally bifurcates into larger PLV, small PDA, both of which have minor irregularities. No significant disease is noted in the dominant RCA other minor irregularities in the PDA branch. LEFT MAIN CORONARY ARTERY: This is a short patent vessel that bifurcates into LAD and circumflex. Left main itself is free of significant disease. LEFT ANTERIOR DESCENDING CORONARY ARTERY: Good caliber vessel extends along the anterior wall, gives off a good size diagonal branch proximally. A small branch runs all the way to the apex. The distal one-fourth of the vessel has diffuse disease. There is no significant disease in the entire LAD system other than diffuse disease of the distal one-fourth of LAD. Diagonal branch is free of significantly disease. LEFT POSTERIOR CIRCUMFLEX CORONARY ARTERY: Technically this is a nondominant vessel. It gives off signal obtuse marginal. It runs in the AV groove and gives distal posterolateral branch. The entire circumflex system has minor irregularities. No significant disease. Left ventriculogram was not performed. FINAL IMPRESSION: This patient has a right dominant system. Acceptable filling pressure. No significant obstructive coronary artery disease. Left ventriculogram was not performed, but by echo left ventricular systolic function was normal. Findings were discussed with the patient and family. I expect he will be discharged later on today and I will see him on Thursday for return office visit. SATISH
--- NOTE | 2016-09-30 08:01 | MISC ---
September 29, 2016 Nader Melara, DO RE: Kris Jackson Dear Dr. Melara: Thank you for the opportunity to participate in the care of Mr. Kris Jackson. This gentleman does not have any significant obstructive CAD. He has a right dominant system, normal filling pressures and by echo his LV function was normal. I am recommending risk factor modification. He will be discharged later on today and I will see him in the office in one week. Risk factor modification issues including smoking cessation was discussed at length. Thank you for your referral and please call for questions. With kindest regards. Sincerely yours, MD SATISH Saenz
== END 2016-09-29 18:06 | disposition home or self-care (01) ==
LOC: CATHCVL 06:21
PROVIDERS: ATTEND Internal Medicine Interventional Cardiology
DX: R94.39 Abnormal result of other cardiovascular function study (principal); R07.9 Chest pain, unspecified; I10 Essential (primary) hypertension; Z91.14 Patient's other noncompliance with medication regimen; Z72.0 Tobacco use; Z79.82 Long term (current) use of aspirin; Z79.899 Other long term (current) drug therapy
CPT/HCPCS: 93458; 99152; 99153; C1769; C1894; J2001; J2250; J1200; Q9967; J1644

== ENCOUNTER 2016-10-27 23:22 | Emergency (ER) | payer MEDICARE, OTHER ==
[2016-10-27 23:27] VITALS: TEMP 98
[2016-10-27] MEDS ORDERED: ORPHENADRINE 30 MG/ML 2 ML VIAL IM STA (23:36)
[2016-10-27] MEDS ORDERED: KETOROLAC 60 MG/2 ML VIAL IM STA (23:36)
--- NOTE | 2016-10-27 23:37 | ED ---
Back Pain HPI - General Chief Complaint: Back Pain/Injury Stated Complaint: Back Pain Time Seen by Provider: 10/27/16 23:28 Source: patient, RN notes reviewed, old records reviewed Mode of arrival: ambulatory Limitations: no limitations - History of Present Illness Initial Comments: This a 65-year-old male presents emergency Department chief complaint of low back injury. Patient has chronic back pain. Patient states she was at [facility] and states that he tried to move awaited chair and states he felt a pull in his right low back. He states that he's had pain radiating from his right low back to his right buttocks. Patient states this does not radiate from his abdomen and has no pain that radiates through his back. Patient states that the pain is better if he does not move in only worsens with movement. Patient denies any lower extremity discoloration, change in time, weakness. Patient denies any bowel, bladder incontinence or retention. Patient has had chronic back pain had an MRI a few months ago which showed multiple level degenerative changes. Patient has seen Dr. Woodall for chronic pain management and has been referred to Dr. Stein. - Related Data Home Medications Medication Instructions Recorded Confirmed Hydrocodone/Acetaminophen [[place] 1 tab PO BID PRN 07/23/16 10/27/16 10-325 Tablet] Atorvastatin [Lipitor] 20 mg PO HS 09/29/16 10/27/16 Previous Rx's Medication Instructions Recorded Aspirin 81 mg PO DAILY #30 chewable 09/19/16 Metoprolol Tartrate [Lopressor] 12.5 mg PO BID #60 dose 09/19/16 Cyclobenzaprine [Flexeril] 10 mg PO TID PRN #15 tab 10/27/16 Ibuprofen [Motrin] 600 mg PO Q8HR PRN #30 tab 10/27/16 Allergies Allergy/AdvReac Type Severity Reaction Status Date / Time No Known Allergies Allergy Verified 10/27/16 23:27 Review of Systems ROS Statement: Those systems with pertinent positive or pertinent negative responses have been documented in the HPI. ROS Other: All systems not noted in ROS Statement are negative. Past Medical History Past Medical History: Asthma, COPD, CVA/TIA, Osteoarthritis (OA) Additional Past Medical History / Comment(s): hip fx History of Any Multi-Drug Resistant Organisms: None Reported Past Surgical History: Joint Replacement Additional Past Surgical History / Comment(s): facial surgery, testicular surgery, knee left Past Anesthesia/Blood Transfusion Reactions: No Reported Reaction, Motion Sickness Past Psychological History: No Psychological Hx Reported Smoking Status: Current every day smoker Past Alcohol Use History: Rare Past Drug Use History: Marijuana - Past Family History Father Family Medical History: Cancer Additional Family Medical History / Comment(s): colon CA Mother Family Medical History: CVA/TIA Additional Family Medical History / Comment(s): Fall with subdural hematoma Brother(s) Additional Family Medical History / Comment(s): committed suicide General Exam Limitations: no limitations General appearance: alert, in no apparent distress Head exam: Present: atraumatic, normocephalic, normal inspection Respiratory exam: Present: normal lung sounds bilaterally. Absent: respiratory distress, wheezes, rales, rhonchi, stridor Cardiovascular Exam: Present: regular rate, normal rhythm, normal heart sounds. Absent: systolic murmur, diastolic murmur, rubs, gallop, clicks GI/Abdominal exam: Present: soft, normal bowel sounds. Absent: distended, tenderness, guarding, rebound, rigid Extremities exam: Present: other (Lower extremity strength equal bilaterally neurovascular intact color equal warmth equal pulses) Back exam: Present: normal inspection, tenderness (Right low back mild), paraspinal tenderness, other (Right straight leg raise). Absent: full ROM ( Slight decreased range of motion secondary pain), vertebral tenderness Neurological exam: Present: alert, oriented X3, CN II-XII intact, reflexes normal. Absent: motor sensory deficit Course Vital Signs 10/27/16 23:24 Temperature 98 F Pulse Rate 100 Respiratory 18 Rate Blood Pressure 128/78 O2 Sat by Pulse 96 Oximetry Medical Decision Making - Medical Decision Making 65-year-old male presented to emergency room for acute on chronic exacerbation of back pain. Patient has reproducible pain worse with movement. Patient's MRI does reveal multiple degenerative changes in aortic aneurysm. Patient symptoms are reproducible and felt to be related to his injury that happened. Patient will be discharged at this time return parameters were discussed. Disposition Clinical Impression: Strain of lumbar region Disposition: HOME SELF-CARE Condition: Stable Instructions: Acute Low Back Pain (ED) Additional Instructions: Please return to the Emergency Department if symptoms worsen or any other concerns. Prescriptions: Cyclobenzaprine [Flexeril] 10 mg PO TID PRN #15 tab PRN Reason: Muscle Spasm Ibuprofen [Motrin] 600 mg PO Q8HR PRN #30 tab PRN Reason: Pain Referrals: Nader Melara DO [Primary Care Provider] - 1-2 days Time of Disposition: 23:36
[2016-10-28 00:21] VITALS: BP 132/80; PULSE 84; RESP 16
== END 2016-10-28 00:23 | disposition home or self-care (01) ==
LOC: EC 23:22
DX: S39.012A Strain of muscle, fascia and tendon of lower back, initial encounter (principal); M47.816 Spondylosis without myelopathy or radiculopathy, lumbar region; F17.200 Nicotine dependence, unspecified, uncomplicated; Z79.899 Other long term (current) drug therapy; X50.1XXA Overexertion from prolonged static or awkward postures, initial encounter; Y93.89 Activity, other specified
CPT/HCPCS: 99283; 96372 ×2; J2360; J1885

== ENCOUNTER 2016-11-23 01:30 | Emergency (ER) | payer MEDICARE, OTHER ==
[2016-11-23 01:37] VITALS: BP 154/88; PULSE 82; RESP 16; TEMP 98.3
--- NOTE | 2016-11-23 01:41 | ED ---
General Adult HPI - General Chief complaint: Fall Stated complaint: Fall/ETOH Time Seen by Provider: 11/23/16 01:30 Source: patient, EMS, RN notes reviewed Mode of arrival: EMS Limitations: no limitations - History of Present Illness Initial comments: This is a 66-year-old male who presents to the emergency department after having fallen and hit his head. Patient denies any loss of consciousness. Patient denies any neck pain patient denies any numbness weakness. Patient denies any blood thinners. Patient states he had about a shot and a half of 151 rum in his coffee. Patient states he was probably lying on the couch and fell and hit his head. Patient denies any chest pain palpitations difficulty breathing or shortness of breath. Patient denies any recent fever chills or cough per patient denies abdominal pain patient denies nausea vomiting diarrhea. She denies any other injury. Patient denies any extremity pain or injury patient states he has full range of motion of all 4 extremities he is able to ambulate without problem. - Related Data Home Medications Medication Instructions Recorded Confirmed Hydrocodone/Acetaminophen [[place] 1 tab PO BID PRN 07/23/16 10/27/16 10-325 Tablet] Atorvastatin [Lipitor] 20 mg PO HS 09/29/16 10/27/16 Previous Rx's Medication Instructions Recorded Aspirin 81 mg PO DAILY #30 chewable 09/19/16 Metoprolol Tartrate [Lopressor] 12.5 mg PO BID #60 dose 09/19/16 Cyclobenzaprine [Flexeril] 10 mg PO TID PRN #15 tab 10/27/16 Ibuprofen [Motrin] 600 mg PO Q8HR PRN #30 tab 10/27/16 Allergies Allergy/AdvReac Type Severity Reaction Status Date / Time No Known Allergies Allergy Verified 11/23/16 01:32 Review of Systems ROS Statement: Those systems with pertinent positive or pertinent negative responses have been documented in the HPI. ROS Other: All systems not noted in ROS Statement are negative. Past Medical History Past Medical History: Asthma, COPD, CVA/TIA, Osteoarthritis (OA) Additional Past Medical History / Comment(s): hip fx History of Any Multi-Drug Resistant Organisms: None Reported Past Surgical History: Joint Replacement Additional Past Surgical History / Comment(s): facial surgery, testicular surgery, knee left Past Anesthesia/Blood Transfusion Reactions: No Reported Reaction, Motion Sickness Past Psychological History: No Psychological Hx Reported Smoking Status: Current every day smoker Past Alcohol Use History: Rare Past Drug Use History: Marijuana - Past Family History Father Family Medical History: Cancer Additional Family Medical History / Comment(s): colon CA Mother Family Medical History: CVA/TIA Additional Family Medical History / Comment(s): Fall with subdural hematoma Brother(s) Additional Family Medical History / Comment(s): committed suicide General Exam - General Exam Comments Initial Comments: GENERAL: Patient is well-developed and well-nourished. Patient is nontoxic and well- hydrated and is in no acute distress. ENT: Neck is soft and supple. No significant lymphadenopathy is noted. Oropharynx is clear. Moist mucous membranes. Patient is in a c-collar patient has a hematoma to the right side of his forehead EYES: The sclera were anicteric and conjunctiva were pink and moist. Extraocular movements were intact and pupils were equal round and reactive to light. Eyelids were unremarkable. PULMONARY: Unlabored respirations. Good breath sounds bilaterally. No audible rales rhonchi or wheezing was noted. CARDIOVASCULAR: There is a regular rate and rhythm without any murmurs gallops or rubs. ABDOMEN: Soft and nontender with normal bowel sounds. No palpable organomegaly was noted. There is no palpable pulsatile mass. SKIN: Skin is clear with no lesions or rashes and otherwise unremarkable. NEUROLOGIC: Patient is alert and oriented x3. Cranial nerves II through XII are grossly intact. Motor and sensory are also intact. Normal speech, volume and content. Symmetrical smile. MUSCULOSKELETAL: Normal extremities with adequate strength and full range of motion. LYMPHATICS: No significant lymphadenopathy is noted PSYCHIATRIC: Normal psychiatric evaluation. Limitations: no limitations Course Vital Signs 11/23/16 01:32 Temperature 98.3 F Pulse Rate 82 Respiratory 16 Rate Blood Pressure 154/88 O2 Sat by Pulse 97 Oximetry Medical Decision Making - Medical Decision Making CT of the head and neck show no acute abnormality Disposition Clinical Impression: Fall, Traumatic hematoma of forehead Disposition: HOME SELF-CARE Instructions: Head Injury (ED) Referrals: Nader Melara DO [Primary Care Provider] - 1-2 days Time of Disposition: 02:19
--- NOTE | 2016-11-23 02:09 | CT ---
EXAMINATION TYPE: CT brain chano resendiz con DATE OF EXAM: 11/23/2016 COMPARISON: 07/23/2016 HISTORY: Pt. fell and has contusion to Right side of frontal bone CT DLP: 1797.40 mGycm Automated exposure control for dose reduction was used. TECHNIQUE: CT scan of the head and cervical spine are performed without contrast. FINDINGS: There is cerebral cortical atrophy. There is patchy hypodensity in the periventricular wh ite matter. There is small right frontal scalp hematoma. There is some hypodensity in the left pariet al lobe consistent with old cortical infarct. This measures 4 cm. There is a 1.5 cm lacunar infarct i n the white matter left frontal lobe. The cervical vertebra have normal alignment. Posterior elements are intact. Disc spaces are fairly no rmal for age. The skull base is intact. 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 No acute intracranial abnormality. Small right frontal scalp hematoma. There is left maxillary sinusitis that is probably new compared to old exam. Negative CT scan of the cervical spine. No change.
== END 2016-11-23 02:27 | disposition home or self-care (01) ==
LOC: EC 01:30
DX: S00.83XA Contusion of other part of head, initial encounter (principal); F17.200 Nicotine dependence, unspecified, uncomplicated; Z79.899 Other long term (current) drug therapy; Z98.890 Other specified postprocedural states; W18.30XA Fall on same level, unspecified, initial encounter; Y93.89 Activity, other specified
CPT/HCPCS: 70450; 72125; 99284

== ENCOUNTER 2020-11-22 07:03 | Inpatient (IN) | payer MEDICARE, OTHER ==
[2020-11-22] MEDS ORDERED: SODIUM CHLORIDE 0.9% 2,000 ML IV ONE (07:30)
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
[2020-11-22] MEDS ORDERED: DEXTROSE 5% IN WATER 100 ML with AMIODARONE 150 MG IV ONE (07:51)
[2020-11-22] MEDS ORDERED: AMIODARONE 360 MG in DEXTROSE 5% IN WATER 200 ML IV ONE ×2 (07:51)
[2020-11-22] MEDS ORDERED: ETOMIDATE 2 MG/ML 10 ML VIAL IVP STA (07:54)
[2020-11-22 07:55] LABS: Anisocytosis Slight; Basophils % (A) 0 %; Eosinophils # (A) 0.1 k/uL (0-0.7); Eosinophils % (A) 1 %; HCT 37.6 % (39.0-53.0); HGB 11.8 gm/dL (13.0-17.5); Lymphocytes # (A) 1.6 k/uL (1.0-4.8); Lymphocytes % (A) 13 %; MCH 28.9 pg (25.0-35.0); MCHC 31.3 g/dL (31.0-37.0); MCV 92.3 fL (80.0-100.0); Mean Platelet Volume 7.4; Monocytes # (A) 0.5 k/uL (0-1.0); Monocytes % (A) 4 %; Neutrophils # (A) 10.2 k/uL (1.3-7.7); Neutrophils % (A) 81 %; Platelet Count 397 k/uL (150-450); RBC 4.07 m/uL (4.30-5.90); WBC 12.7 k/uL (3.8-10.6)
[2020-11-22 08:03] LABS: Partial Thromboplastin Time 23.1 sec (22.0-30.0); Prothrombin Time 10.7 sec (9.0-12.0)
[2020-11-22 08:36] LABS: Albumin 3.3 g/dL (3.5-5.0); Calcium 8.7 mg/dL (8.4-10.2); Magnesium 2.1 mg/dL (1.6-2.3); Potassium 4.8 mmol/L (3.5-5.1); Total Bilirubin 0.4 mg/dL (0.2-1.3); Total Protein 7.2 g/dL (6.3-8.2)
[2020-11-22] MEDS ORDERED: HEPARIN SODIUM 1,000 UN/ML (10ML VL) IV ONE (08:51)
[2020-11-22] MEDS ORDERED: HEPARIN SODIUM 1,000 UN/ML (10ML VL) IV PRN (08:51)
--- NOTE | 2020-11-22 09:08 | XR ---
EXAMINATION TYPE: XR chest 1V portable DATE OF EXAM: 11/22/2020 COMPARISON: Chest x-ray September 18, 2016 HISTORY: Altered mental status and weakness. TECHNIQUE: Single frontal view of the chest is obtained. FINDINGS: The osseous structures are demineralized. Degenerative change bilateral glenohumeral joint s. There is small left pleural effusion. Some eventration right hemidiaphragm. Cardiac silhouette siz e is stable and within normal limits. 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 IMPRESSION: Chronic changes with new small left pleural effusion and associated left basilar atelect asis and/or infiltrate.
--- NOTE | 2020-11-22 09:14 | CT ---
EXAMINATION TYPE: CT brain wo con DATE OF EXAM: 11/22/2020 COMPARISON: 11/23/2016 INDICATION: altered mental status DLP: 1247.4 mGycm, Automated exposure control for dose reduction was used. CONTRAST: None CT of the brain is performed utilizing 3 mm thick sections through the posterior fossa and 3 mm thick sections through the remaining calvarium. Study is performed within 24 hours of arrival to the hosp ital. Pneumocephalus is present. Small amount of air is within the optic nerve foramen, the suprasellar cis tern slightly greater on the right. This appears suggestive for posttraumatic change. A Few punctate areas within the nondependent foramen magnum and upper spinal canal at the level of th e dens, example image series 207 image 10. Within the spinal canal is may be in the epidural space. C orrelate for recent spinal canal intervention, such as a lumbar puncture. Small amount of air is within the left fws faculty assistant space. Findings are nonspecific. Trauma should be c onsidered. No acute fractures however are identified. Report was called to the emergency room by Dr. Holbrook by telephone at time of interpretation 0900 hours 11/22/2020. No abnormal hyperdensity is present to suggest an acute intracranial hemorrhage. No mass lesion is evident. No acute infarcts are evident. Ventricles and sulci are prominent for the patient age. Periventricular white matter hypodensity is present, likely on the basis of chronic white matter ischemic changes. Paranasal sinuses and mastoid air cells within the [id number] are clear. No acute fractures are evident. Maxillary boo appear intact as visualized. No basilar skull fractur es are identified note is made of spina bifida occulta of C1. IMPRESSIONS: 1. Pneumocephalus of uncertain etiology. Trauma is favored given the distribution including extra c ranial fws faculty assistant space, intradural suprasellar cistern region, right carotid siphon region, and susp ected extradural upper spinal canal. 2. Atrophy with chronic-appearing white matter changes.
[2020-11-22] MEDS ORDERED: ONDANSETRON 4 MG/2 ML VIAL IVP PRN (09:29)
[2020-11-22] MEDS ORDERED: NALOXONE 0.4 MG/ML 1 ML VIAL IV PRN (09:29)
[2020-11-22] MEDS: SODIUM CHLORIDE 0.9% 1,000 ML IV SCH ×2 (09:34→21:01)
--- NOTE | 2020-11-22 09:34 | ED ---
Medical Decision Making - Lab Data Result diagrams: 11/22/20 07:35 11/22/20 07:35 Lab Results 11/22/20 11/22/20 11/22/20 Range/Units 07:35 07:35 07:35 WBC 12.7 H (3.8-10.6) k/uL RBC 4.07 L (4.30-5.90) m/uL Hgb 11.8 L (13.0-17.5) gm/dL Hct 37.6 L (39.0-53.0) % MCV 92.3 (80.0-100.0) fL MCH 28.9 (25.0-35.0) pg MCHC 31.3 (31.0-37.0) g/dL RDW 17.0 H (11.5-15.5) % Plt Count 397 (150-450) k/uL MPV 7.4 Neutrophils % 81 % Lymphocytes % 13 % Monocytes % 4 % Eosinophils % 1 % Basophils % 0 % Neutrophils # 10.2 H (1.3-7.7) k/uL Lymphocytes # 1.6 (1.0-4.8) k/uL Monocytes # 0.5 (0-1.0) k/uL Eosinophils # 0.1 (0-0.7) k/uL Basophils # 0.0 (0-0.2) k/uL Anisocytosis Slight PT (9.0-12.0) sec INR (<1.2) APTT (22.0-30.0) sec Sodium 139 (137-145) mmol/L Potassium 4.8 (3.5-5.1) mmol/L Chloride 111 H (98-107) mmol/L Carbon Dioxide 17 L (22-30) mmol/L Anion Gap 11 mmol/L BUN 50 H (9-20) mg/dL Creatinine 2.09 H (0.66-1.25) mg/dL Est GFR (CKD-EPI)AfAm 36 (>60 ml/min/1.73 sqM) Est GFR (CKD-EPI)NonAf 31 (>60 ml/min/1.73 sqM) Glucose 118 H (74-99) mg/dL Plasma Lactic Acid Matthew 2.4 H* (0.7-2.0) mmol/L Calcium 8.7 (8.4-10.2) mg/dL Magnesium 2.1 (1.6-2.3) mg/dL Total Bilirubin 0.4 (0.2-1.3) mg/dL AST 33 (17-59) U/L ALT 22 (4-49) U/L Alkaline Phosphatase 130 H (38-126) U/L Troponin I (0.000-0.034) ng/mL Total Protein 7.2 (6.3-8.2) g/dL Albumin 3.3 L (3.5-5.0) g/dL Lipase 147 (23-300) U/L TSH 2.530 (0.465-4.680) mIU/L Blood Type Blood Type Recheck Bld Type Recheck Status Antibody Screen Spec Expiration Date 11/22/20 11/22/20 11/22/20 Range/Units 07:35 07:35 08:17 WBC (3.8-10.6) k/uL RBC (4.30-5.90) m/uL Hgb (13.0-17.5) gm/dL Hct (39.0-53.0) % MCV (80.0-100.0) fL MCH (25.0-35.0) pg MCHC (31.0-37.0) g/dL RDW (11.5-15.5) % Plt Count (150-450) k/uL MPV Neutrophils % % Lymphocytes % % Monocytes % % Eosinophils % % Basophils % % Neutrophils # (1.3-7.7) k/uL Lymphocytes # (1.0-4.8) k/uL Monocytes # (0-1.0) k/uL Eosinophils # (0-0.7) k/uL Basophils # (0-0.2) k/uL Anisocytosis PT 10.7 (9.0-12.0) sec INR 1.0 (<1.2) APTT 23.1 (22.0-30.0) sec Sodium (137-145) mmol/L Potassium (3.5-5.1) mmol/L Chloride (98-107) mmol/L Carbon Dioxide (22-30) mmol/L Anion Gap mmol/L BUN (9-20) mg/dL Creatinine (0.66-1.25) mg/dL Est GFR (CKD-EPI)AfAm (>60 ml/min/1.73 sqM) Est GFR (CKD-EPI)NonAf (>60 ml/min/1.73 sqM) Glucose (74-99) mg/dL Plasma Lactic Acid Matthew (0.7-2.0) mmol/L Calcium (8.4-10.2) mg/dL Magnesium (1.6-2.3) mg/dL Total Bilirubin (0.2-1.3) mg/dL AST (17-59) U/L ALT (4-49) U/L Alkaline Phosphatase (38-126) U/L Troponin I 0.029 (0.000-0.034) ng/mL Total Protein (6.3-8.2) g/dL Albumin (3.5-5.0) g/dL Lipase (23-300) U/L TSH (0.465-4.680) mIU/L Blood Type O Positive Blood Type Recheck O Pos Bld Type Recheck Status No Antibody Screen NEGATIVE Spec Expiration Date 11/25/20202299 Critical Care Time Critical Care Time: Yes Total Critical Care Time: 33 Disposition Clinical Impression: Pneumocephalus, Atrial fibrillation with RVR Disposition: ADMITTED IP TO THIS HOSP Condition: Fair Referrals: None,Stated [Primary Care Provider] - 1-2 days Procedures - [place] Protocol (Time Out) Procedure Performed:: Cardio version Performing Provider: Didier Hernandes Nurse: Manny Cartagena Patient Identification (2 identifiers required): Chart, Verbal, Arm Band, Name, Birthdate Patient/Legal Front End Ui Developer has Confirmed: Identity, Procedure, Consent
[2020-11-22] MEDS: HEPARIN SOD,PORK IN 0.45% NACL 25,000 UNIT in 0.45% NACL 1 250ML.BAG IV SCH (09:42)
[2020-11-22] MEDS: PANTOPRAZOLE 40 MG/10 ML VIAL IV SCH (09:46)
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
[2020-11-22] MEDS ORDERED: HYDROcodone/APAP 5-325MG 1 EACH TAB PO STA (12:50)
[2020-11-22] MEDS: AMIODARONE 450 MG in DEXTROSE 5% IN WATER 250 ML IV SCH ×2 (15:29)
--- NOTE | 2020-11-22 15:31 | XR ---
Facial bones HISTORY: Pneumocephalus Correlation to CT 11/22/2020 3 views of the facial bones And orbits are intact. Paranasal sinuses are well aerated. No air-fluid level in the paranasal sinuse s to suggest acute hemorrhage. No pneumocephalus is evident. Bone mineralization is reduced which can limit sensitivity. There is evidence of dental decay. IMPRESSION: No evident facial bone fracture.
[2020-11-22 16:16] LABS: Lactic Acid, Venous 0.8 mmol/L (0.7-2.0)
[2020-11-22] MEDS: ATORVASTATIN 20 MG TAB PO SCH (21:00)
[2020-11-22] MEDS ORDERED: AMIODARONE IN DEXTROSE,ISO-OSM 150 MG/100 ML PLAST..BAG IV ONE (23:59)
[2020-11-22] MEDS ORDERED: AMIODARONE IN DEXTROSE,ISO-OSM 360 MG/200 ML PLAST..BAG IV ONE (23:59)
[2020-11-23] MEDS: HEPARIN SOD,PORK IN 0.45% NACL 25,000 UNIT in 0.45% NACL 1 250ML.BAG IV SCH (03:19)
[2020-11-23] MEDS: AMIODARONE 450 MG in DEXTROSE 5% IN WATER 250 ML IV SCH ×2 (03:20)
[2020-11-23 05:13] LABS: Calcium 7.9 mg/dL (8.4-10.2); Potassium 4.5 mmol/L (3.5-5.1)
[2020-11-23 05:40] LABS: Anisocytosis Slight; HCT 31.3 % (39.0-53.0); MCHC 31.3 g/dL (31.0-37.0); MCV 92.5 fL (80.0-100.0); Mean Platelet Volume 7.5; Neutrophils % (A) 77 %; Platelet Count 324 k/uL (150-450); RBC 3.38 m/uL (4.30-5.90); RDW 17.4 % (11.5-15.5); WBC 10.6 k/uL (3.8-10.6)
[2020-11-23 05:41] LABS: Basophils % (A) 0 %; Eosinophils # (A) 0.6 k/uL (0-0.7); Eosinophils % (A) 6 %; Lymphocytes # (A) 1.2 k/uL (1.0-4.8); Lymphocytes % (A) 12 %; Monocytes # (A) 0.4 k/uL (0-1.0); Monocytes % (A) 4 %; Neutrophils # (A) 8.2 k/uL (1.3-7.7)
[2020-11-23 05:48] LABS: HGB 9.8 gm/dL (13.0-17.5)
[2020-11-23] MEDS: SODIUM CHLORIDE 0.9% 1,000 ML IV SCH ×2 (06:32→19:55)
[2020-11-23] MEDS: PANTOPRAZOLE 40 MG/10 ML VIAL IV SCH (09:26)
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
--- NOTE | 2020-11-23 09:48 | CONS ---
CONSULTATION DATE OF CONSULTATION: 11/22/2020. CHIEF COMPLAINT: Atrial fibrillation with rapid ventricular rate. HISTORY OF PRESENT ILLNESS: This is a 70-year-old gentleman with history of paroxysmal atrial fibrillation, who presented to [facility] with symptoms of confusion and not feeling well. He was found to be in atrial fibrillation with rapid ventricular rate with heart rates in the 160s to 180s and he was hemodynamically unstable with hypotension. He underwent cardioversion by the emergency room doctor because of hemodynamic instability and we were consulted after that. The patient subsequent evaluation showed pneumoencephalos of uncertain etiology and neurology wanted him transfer to a tertiary care center. They were unable to transfer him anywhere and he was going to be admitted due to which I evaluated him in the emergency room. The patient's predominant symptom was that he was somewhat confused and was behaving in a bizarre way when his granddaughter was driving him from 1 place to the ER. He also had symptoms of shortness of breath. When I saw him in the ER, his granddaughter was not at his bedside. He seemed less confused than he was when he first arrived. The patient has had a cardiac catheterization in 2017 and was told he does not have significant CAD. Following cardioversion, patient is on IV heparin and is tolerating it well. PAST MEDICAL HISTORY: Negative for hypertension, diabetes and dyslipidemia. MEDICATIONS: Include aspirin and gabapentin. FAMILY HISTORY: Negative for premature coronary artery disease. SOCIAL HISTORY: Negative for current smoking, EtOH abuse, or drug abuse. REVIEW OF SYSTEMS: HEENT is unremarkable. CARDIAC as described above. RESPIRATORY: Significant for shortness of breath. GI negative. : Negative. ALLERGY/IMMUNOLOGY: Negative. SKIN negative. MUSCULOSKELETAL negative. ENDOCRINE negative. DERM: Negative. CONSTITUTIONAL: Significant for confusion and bizarre behavior. EXAM: The patient's heart rate was around 70 beats per minute. Blood pressure 100/60, respiratory rate 18. CHEST exam reveals diminished air entry bilaterally. HEART exam reveals first and second heart sounds. No gallop. No murmur. ABDOMEN: Soft. Exam of EXTREMITIES did not reveal any edema. Peripheral pulses are felt. ASSESSMENT: Paroxysmal atrial fibrillation with rapid ventricular rate causing hemodynamic instability requiring the ER physician to emergently cardiovert him. PLAN: I will obtain a 2D echo. Continue IV heparin. We will obtain input from our neurology colleagues to see if he can anticoagulate him at least for the next several weeks given the cardioversion give the cardioversion that was done emergently. MMLORETO / MERN: [id number] /
--- NOTE | 2020-11-23 09:53 | P.PN ---
Subjective Progress Note Date: 11/23/20 The patient seen at bedside and that he feels that he is doing better today at. Yesterday. He denies of any headache, nausea vomiting. He denies of any focal weakness. Again I asked him about any history of surgeries in the last few months and he denied that. He said that he had a fall about 2 weeks ago but other than that he denies of any surgeries or any lumbar puncture in the last few months. He said that he has chronic neck and lower back pain. Upon asking him about his stiffness and weakness in his legs he says it's been going on for a while infiltrates on and off but he cannot tell me for how long exactly has been going on for. Of note patient was not transferred to outside facility for neurosurgical evaluation since there is no bed available, though therefore he was admitted to our facility. ED team spoke with [facility] neurointensive care and they recommended that the patient is a candidate for hyperbaric oxygen treatment and recommended the patient to be transferred to [facility]. Our facility and he was on the nonrebreather and head of the bed was at 30. He was started on heparin drip by the ED team or his A. fib with RVR. Objective - Vital Signs Vital signs: Vital Signs Temp 97.6 F 11/23/20 03:50 Pulse 87 11/23/20 03:50 Resp 16 11/23/20 03:50 BP 108/62 11/23/20 03:50 Pulse Ox 100 11/23/20 00:00 Intake & Output 11/22/20 11/23/20 11/23/20 18:59 06:59 18:59 Intake Total 180 588.982 531.468 Output Total 730 Balance 180 -141.018 531.468 Weight 65.771 kg 47.5 kg Intake: Intake, IV Titration 348.982 51.468 Amount Amiodarone 450 mg In 197.504 Dextrose 5% in Water 250 ml @ 0.5 MG/MIN 16.667 mls/hr IV .Q15H [facility] Rx#: [id number] Heparin Sod,Pork in 0.45% 151.478 51.468 NaCl 25,000 unit In 0.45 % NaCl 1 250ml.bag @ 12 UNITS/KG/HR 7.893 mls/hr IV .Q24H [facility] Rx#: [id number] Oral 180 240 480 Output: Urine 730 Other: Voiding Method Indwelling Catheter Indwelling Catheter # Voids 0 - Exam GENERAL: The patient seems cachectic, lying in bed and is in mild acute distress. LUNG: Clear to auscultation bilaterally no wheezing noted throughout. Not labored breathing. Is on nonrebreather NEUROLOGICAL: Higher mental function: The patient is awake, alert, oriented to self, place and time. He correctly named objects (pen and watch). Patient is following simple commands. No aphasia and no neglect. Cranial nerves: The pupils are round, equal and reactive to light. Visual f ields was hard to assess because of his cooperation but seem intact over the left eye but there seems loss over upper half of right eye to confrontation. Extraocular movement is intact no nystagmus is noted. Facial sensation is normal to touch throughout. The facial strength is normal throughout. Hearing is mildly to moderate decreased bilaterally to hand rub. Tongue is midline and moved [id number] without any difficulty. No dysarthria is noted. Motor: Gait is deferred because of his weakness. The strength is could not exam individual muscles because of his diffuse pain. He is able to lift bilateral upper extremities above gravity without focality while lower he was able to lift left lower extremity above gravity and able to bend right knee and slight extension of right knee. Bilateral ankles are 4 bilaterally. He had increase tone over bilateral knee and was in pain with flexing or extending his knee (Increase tone over the right > left). Cerebellum: Normal finger to nose bilaterally. Sensation: Sensation is normal to touch throughout. Reflexes (right/left): Brachioradialis is 2-3+ bilaterally. Otherwise 2+ throughout uppers. and lowers are hard to assess because of cooperation.. Right patellar is 1+ otherwise 0 in lowers. Plantars are mute bilaterally. WORK-UP: Creatinine is 2.09 and it's trending down currently is 1.76. Calcium is 8.7, magnesium is 2.1. AST of 33 and ALT is 22 Ammonia level is less than 9 TSH is 2.530 Cordero virus PCR was not detected CT of the head is reported as pneumocephalus of uncertain etiology. Trauma was favored given the distribution including extracranial meat specialist space, intradural suprasellar cistern region, right carotid siphon on region and suspected extradural upper spinal canal. Atrophy with chronic-appearing white matter changes. I personally spoke with the reading radiologist regarding the findings and reviewed images. Facial x-ray is reported as no evidence for facial bone fracture. - Labs CBC & Chem 7: 11/23/20 04:02 11/23/20 04:02 Labs: Abnormal Lab Results - Last 24 Hours (Table) 11/22/20 11/23/20 11/23/20 Range/Units 19:50 04:02 04:02 RBC 3.38 L (4.30-5.90) m/uL Hgb 9.8 L D (13.0-17.5) gm/dL Hct 31.3 L (39.0-53.0) % RDW 17.4 H (11.5-15.5) % Neutrophils # 8.2 H (1.3-7.7) k/uL APTT 31.0 H (22.0-30.0) sec Chloride 114 H (98-107) mmol/L Carbon Dioxide 21 L (22-30) mmol/L BUN 43 H (9-20) mg/dL Creatinine 1.76 H (0.66-1.25) mg/dL Glucose 101 H (74-99) mg/dL Calcium 7.9 L (8.4-10.2) mg/dL 11/23/20 Range/Units 04:02 RBC (4.30-5.90) m/uL Hgb (13.0-17.5) gm/dL Hct (39.0-53.0) % RDW (11.5-15.5) % Neutrophils # (1.3-7.7) k/uL APTT 45.4 H (22.0-30.0) sec Chloride (98-107) mmol/L Carbon Dioxide (22-30) mmol/L BUN (9-20) mg/dL Creatinine (0.66-1.25) mg/dL Glucose (74-99) mg/dL Calcium (8.4-10.2) mg/dL Assessment and Plan Assessment: Pneumocephalus of unknown exact etiology (unknown duration). Had fall about fall 2 weeks ago and possible cause but not definitive. Encephalopathy of unknown etiology at this time. Patient has component of metabolic of encephalopathy. --mentation improving History of falls Bilateral lower extremity paresis with spasticity. Atrial fibrillation with RVR --currently on heparin drip Chronic neck pain Chronic lower back pain History of TIA (1994) Acute kidney injury--trending down Osteoarthritis History of COPD Plan: Continue nonrebreather and head of the bed at 30 degrees. I ordered a repeat CT of the head. MRI of the brain is pending Because of his neck pain any lower back pain I ordered a CT of the neck and back. Ordered EEG. I'll not start the patient on an antiepileptic drug unless there is epileptiform discharges or seizure on the EEG. Pending vitamin B12 and folate levels. Start the patient on baclofen 5 mg 1 tablet twice a day. Continue neuro checks. Cardiology is consulted regarding the patient atrial fibrillation. I spoke with the cardiology nurse practitioner and notified her that if possible to hold off on anticoagulation for now if possible and use aspirin in the meantime. We'll defer the rest of the medical management to the primary team. We attempted to transfer the patient for neurosurgical evaluation at different facilities but no beds available. Blake Barrera Recommended patient be taken to [facility] for hyperbaric oxygen therapy and we attempted but no beds available. Will try again today. UPDATE: Repeat CT of the head is reported as resolution of previous pneumocephalus. At rophy with periventricular white matter ischemic type changes. Some limitation due to motion artifact. CT of cervical spine was reported as no acute osseous abnormality. Diffuse degenerative disc changes. It is reported as mild to moderate over C3-C4 on the left and moderate over C5-C6 bilaterally. I spoke with the respiratory therapist and will continue nonrebreather and Ultram over a Ventimask with a goal of oxygen saturation of equal to more than 95%. Regarding the use of anticoagulation I think it safe to use anticoagulation from a neurological perspective starting tomorrow defer the management to the cardiology team. Consulted orthopedic team regarding the cervical and lumbosacral spondylosis. The plan is discussed with the patient's primary team and that his nurse. Freeman Gibbs M.D. Neuro-hospitalist Time with Patient: Greater than 30
--- NOTE | 2020-11-23 11:15 | P.CONS ---
History of Present Illness - Reason for Consult Consult date: 11/23/20 wound care - History of Present Illness This is a 70-year-old gentleman being seen on [address] for nonhealing ulceration to the left heel and right buttocks. Patient's right buttocks ulceration was a blister that opened resulting in pressure ulcer stage II Limited to skin breakdown. There is granulation seen within the wound bed wound edges are attached to the wound base. The left calcaneus is a stage II pressure ulcer with fatty layer exposure, wound edges are attached to the wound base. There is no tunneling or undermining noted. The ulceration measures approximately 1 x 3 x 2 x 0.1 cm. Patient's past medical history significant for asthma, COPD, CVA. Review Of Systems: Constitutional: No fever, no chills, no night sweats. No weight change. No weakness, fatigue or lethargy. No daytime sleepiness. Integumentary:reports wounds, no lesions. No rash or pruritus. No unusual bruising. No change in hair or nails. Physical exam: General Appearance: Alert, cooperative, no distress, appears stated age. Skin: See HPI all other Skin color, texture, tugor normal, no rashes or lesions. Neurologic: Alert oriented x3 Assessment: 1. Pressure ulcer stage II left calcaneus 2. Pressure ulcer stage II right buttocks Plan: 1. Left calcaneus: Apply honey alginate, saline moistened gauze, dry gauze, rolled gauze and secure with paper tape. Change Thursday. Patient would benefit from continued outpatient advance wound care. We padded to see him in the wound care center upon discharge. 2. Right buttocks. Apply zinc. Cream daily Thank you for the consultation any questions to contact the wound care center DNP note has been reviewed and discussed with Dr. Medina and the impression and plan of care has been directed as dictated. Past Medical History Past Medical History: Asthma, COPD, CVA/TIA, Osteoarthritis (OA) Additional Past Medical History / Comment(s): hip fx History of Any Multi-Drug Resistant Organisms: None Reported Past Surgical History: Joint Replacement Additional Past Surgical History / Comment(s): facial surgery, testicular surgery, knee left Past Anesthesia/Blood Transfusion Reactions: No Reported Reaction, Motion Sickness Past Psychological History: No Psychological Hx Reported Smoking Status: Unknown if ever smoked Past Alcohol Use History: Rare Past Drug Use History: Marijuana - Past Family History Father Family Medical History: Cancer Additional Family Medical History / Comment(s): colon CA Mother Family Medical History: CVA/TIA Additional Family Medical History / Comment(s): Fall with subdural hematoma Brother(s) Additional Family Medical History / Comment(s): committed suicide Medications and Allergies Home Medications Medication Instructions Recorded Confirmed Type Aspirin 325 mg PO W/BRKFST 11/22/20 11/22/20 History Gabapentin [Neurontin] 300 mg PO W/BRKFST 11/22/20 11/22/20 History Allergies Allergy/AdvReac Type Severity Reaction Status Date / Time No Known Allergies Allergy Verified 11/22/20 07:59 Physical Exam Vitals: Vital Signs Temp Pulse Pulse Resp BP BP Pulse Ox 11/23/20 03:50 97.6 F 87 16 108/62 11/23/20 00:00 97.7 F 78 16 118/71 100 11/22/20 20:00 98.2 F 75 18 100/62 100 11/22/20 19:56 94 L 11/22/20 18:05 96.6 F L 75 18 109/64 100 11/22/20 15:33 72 20 106/61 100 11/22/20 13:09 98.9 F 81 20 101/65 99 Intake and Output 11/22/20 11/23/20 11/23/20 22:59 06:59 14:59 Intake Total 509.322 259.660 632.303 Output Total 355 375 Balance 154.322 -115.340 632.303 Intake: Intake, IV Titration 89.322 259.660 152.303 Amount Amiodarone 450 mg In 197.504 100.835 Dextrose 5% in Water 250 ml @ 0.5 MG/MIN 16.667 mls/hr IV .Q15H [facility] Rx#: [id number] Heparin Sod,Pork in 0.45% 89.322 62.156 51.468 NaCl 25,000 unit In 0.45 % NaCl 1 250ml.bag @ 12 UNITS/KG/HR 7.893 mls/hr IV .Q24H [facility] Rx#: [id number] Oral 420 480 Output: Urine 355 375 Other: Voiding Method Indwelling Catheter Indwelling Catheter # Voids 0 Weight 65.771 kg 47.5 kg Results CBC & Chem 7: 11/23/20 04:02 11/23/20 04:02 Labs: Abnormal Lab Results - Last 24 Hours (Table) 11/22/20 11/23/20 11/23/20 Range/Units 19:50 04:02 04:02 RBC 3.38 L (4.30-5.90) m/uL Hgb 9.8 L D (13.0-17.5) gm/dL Hct 31.3 L (39.0-53.0) % RDW 17.4 H (11.5-15.5) % Neutrophils # 8.2 H (1.3-7.7) k/uL APTT 31.0 H (22.0-30.0) sec Chloride 114 H (98-107) mmol/L Carbon Dioxide 21 L (22-30) mmol/L BUN 43 H (9-20) mg/dL Creatinine 1.76 H (0.66-1.25) mg/dL Glucose 101 H (74-99) mg/dL Calcium 7.9 L (8.4-10.2) mg/dL 11/23/20 Range/Units 04:02 RBC (4.30-5.90) m/uL Hgb (13.0-17.5) gm/dL Hct (39.0-53.0) % RDW (11.5-15.5) % Neutrophils # (1.3-7.7) k/uL APTT 45.4 H (22.0-30.0) sec Chloride (98-107) mmol/L Carbon Dioxide (22-30) mmol/L BUN (9-20) mg/dL Creatinine (0.66-1.25) mg/dL Glucose (74-99) mg/dL Calcium (8.4-10.2) mg/dL Assessment and Plan (1) Pressure ulcer of left heel, stage 2 Current Visit: Yes Status: Acute Code(s): L89.622 - PRESSURE ULCER OF LEFT HEEL, STAGE 2 SNOMED Code(s): 587548216 (2) Pressure ulcer of right buttock, stage 2 Current Visit: Yes Status: Acute Code(s): L89.312 - PRESSURE ULCER OF RIGHT BUTTOCK, STAGE 2 SNOMED Code(s): 24534350939996133
--- NOTE | 2020-11-23 13:01 | CT ---
EXAMINATION TYPE: CT brain cspine wo con DATE OF EXAM: 11/23/2020 COMPARISON: 11/22/2020 HISTORY: pneumocephalus, abn CT CT DLP: 3657.7 mGycm, Automated exposure control for dose reduction was used. CONTRAST: Patient injected with 0 mL of Isovue 300. CT of the brain is performed utilizing 3 mm thick sections through the posterior fossa and 3 mm thick sections through the remaining calvarium. Study is performed within 24 hours of arrival to the hospital. No abnormal hyperdensity is present to suggest an acute intracranial hemorrhage. No mass lesion is evident. No acute infarcts are evident. Mild periventricular white matter hypodensity is present, likely on t he basis of chronic white matter ischemic change. Attention is paid to the suprasellar cistern. Motion artifact is present and repeat imaging is perfor med at the skull base. No obvious free air is evident. Previous free air has resolved. Ventricles and sulci are slightly prominent for the patient age. Paranasal sinuses and mastoid air cells within the [id number] are clear. IMPRESSIONS: 1. Resolution of previous pneumocephalus. 2. Atrophy with periventricular white matter ischemic type changes. 3. Some limitations due to motion artifact CT cervical spine. COMPARISON: None CT of the cervical spine is performed in the axial plane at 2 mm thick sections. Reconstructed image s in the coronal, and sagittal plane are reviewed on the computer. No acute fractures are evident. Spina bifida occulta of C1 is evident. Vertebral body alignment is normal. Mild diffuse loss of disc height is present within the cervical spine. Vertebral body heights are preserved. No spinal canal stenosis is evident. Uncovertebral joint hypertrophy is present on the left at C4-5 bilaterally C3-4 with [id number] foraminal stenosis. Moderate foraminal stenosis bilaterally at C5-6 is present IMPRESSIONS: 1. No acute osseous abnormality. 2. Diffuse degenerative disc changes.
--- NOTE | 2020-11-23 13:39 | CT ---
EXAMINATION TYPE: CT thor lumbar spine wo con DATE OF EXAM: 11/23/2020 COMPARISON: None HISTORY: pain CT DLP: 1644.6 mGycm Automated exposure control for dose reduction was used. Contrast: None Technique: Axial images 3 mm thick sections. Reconstructed images in coronal and sagittal planes. FINDINGS: No acute fractures are evident. Structures appear somewhat osteopenic. Note is made of small bilatera l pleural effusions. Wedge deformities of T6 and T7 are present. No posterior wall displacement is evident. No spinal alfred l stenosis is present. Thoracic spine: Endplate changes are present T10-11 and T11-12. There is a wedge deformity of L1. Lumbar spine: There is loss of disc height L4-5. Some endplate changes are present with moderate anterior thecal sa c compression. AP spinal canal stenosis is not present. Facet hypertrophy is present. Some mild anter ior superior endplate compression is present at L4. Posterior inferior L3 spurring is present with mi ld anterior thecal sac compression. No spinal canal stenosis is present. L1-2: Endplate spurring is present. This has mild anterior thecal sac compression. There is narrowing of disc height. There is a mild wedge deformity of L1 without posterior wall displacement. Note is made of a large fecal bolus of the rectum. Correlate for fecal impaction. IMPRESSION: 1. WEDGE DEFORMITIES NOTED AT T6, T7, L1 AND MILDLY ALONG THE ANTERIOR/SUPERIOR ENDPLATE OF L4. THESE ARE INDETERMINATE AGE. SUSPICIOUS CHANGES TO SUGGEST ACUTE CHANGE ARE NOT IDENTIFIED HOWEVER. 2. DEGENERATIVE DISC CHANGES LOWER THORACIC SPINE AND LOWER LUMBAR SPINE DISCUSSED ABOVE. 3. MILD ANTERIOR THECAL SAC COMPRESSION DUE TO ENDPLATE CHANGES AT L3 AND L4. 4. CORRELATE FOR FECAL IMPACTION AT THE RECTUM 5. ACUTE SUSPICIOUS OSSEOUS CHANGES ARE NOT EVIDENT.
--- NOTE | 2020-11-23 14:10 | MR ---
EXAMINATION TYPE: MR brain wo con DATE OF EXAM: 11/23/2020 COMPARISON: CT brain from earlier today and older CTs. HISTORY: altered mental status. ?Pneumocephalus TECHNIQUE: Multiplanar, multisequence imaging of the brain and brainstem is performed without IV cont rast. FINDINGS: Exam suboptimal as patient unable to hold still. Diffusion weighted images demonstrate no evidence of a recent infarct or other diffusion abnormality. There is moderate ventricular and sulcal prominence. Focal and confluent areas of T2 hyperintensity i n the periventricular white matter are redemonstrated. Old infarct superior left parietal posterior w atershed region is redemonstrated. Midline structures demonstrate normal morphology. The craniocervical junction appears within normal limits. Normal vascular flow voids are present. There is artifact distortion or level of the globes. Visualized paranasal sinuses are grossly clear. IMPRESSION: Suboptimal study with moderate diffuse cerebral atrophy and chronic small vessel ischemic change along with old left superior parietal lobe posterior watershed infarct are redemonstrated. No MRI evidence for recent infarct. Pneumocephalus if suspected clinically is better evaluated on CT ve rsus MRI.
--- NOTE | 2020-11-23 15:35 | EEG ---
ELECTROENCEPHALOGRAM REPORT DATE OF SERVICE: 11/23/2020 CLINICAL HISTORY: This is a 70-year-old gentleman with altered mental status. The video EEG is obtained to evaluate for seizure epileptiform activity. RELEVANT MEDICATION: The patient is not on any antiepileptic drugs. EEG TYPE: A routine 21-channel EEG is performed with video using the 10/20 electrode placement system. DESCRIPTION: Wakefulness is only obtained. During wakefulness, there is a posterior-dominant rhythm of low to moderate voltage that is well modulated of 7 to 7.5 hertz activity. There is no physiological sleep architecture seen. There is no focal slowing. Interictal and ictal is none. ACTIVATION PROCEDURE: Photic stimulation did not evoke a posterior driving response. There is no abnormality during the photic stimulation. Hyperventilation is not performed. CLINICAL INTERPRETATION: This is an abnormal routine EEG. The background slowing is suggestive of mild encephalopathy. There are no focal slowing, epileptiform discharges or seizure on the EEG. Clinical correlation is recommended. JOVAN / ESTELA: [id number] / [id number]
[2020-11-23] MEDS: BACLOFEN 10 MG TAB PO SCH ×2 (17:34→22:30)
[2020-11-23] MEDS: AMIODARONE 200 MG TAB PO SCH ×2 (17:35→22:30)
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
[2020-11-23 20:37] LABS: Folate, Serum 6.9 ng/mL (4.40-31.00)
[2020-11-23] MEDS: ATORVASTATIN 20 MG TAB PO SCH (22:30)
[2020-11-24 04:21] LABS: Anisocytosis Slight; Basophils % (A) 0 %; Eosinophils # (A) 0.5 k/uL (0-0.7); Eosinophils % (A) 5 %; HCT 30.2 % (39.0-53.0); HGB 9.2 gm/dL (13.0-17.5); Hypochromasia Slight; Lymphocytes # (A) 1.2 k/uL (1.0-4.8); Lymphocytes % (A) 14 %; MCH 28.6 pg (25.0-35.0); MCHC 30.4 g/dL (31.0-37.0); Mean Platelet Volume 7.2; Monocytes # (A) 0.4 k/uL (0-1.0); Monocytes % (A) 5 %; Neutrophils # (A) 6.5 k/uL (1.3-7.7); Neutrophils % (A) 75 %; Platelet Count 302 k/uL (150-450); RBC 3.22 m/uL (4.30-5.90); RDW 16.8 % (11.5-15.5); WBC 8.8 k/uL (3.8-10.6)
[2020-11-24 04:45] LABS: Potassium 4.5 mmol/L (3.5-5.1)
[2020-11-24] MEDS: SODIUM CHLORIDE 0.9% 1,000 ML IV SCH ×2 (05:55→20:09)
[2020-11-24] MEDS ORDERED: ASPIRIN 81 MG PO SCH (09:00)
[2020-11-24] MEDS: AMIODARONE 200 MG TAB PO SCH ×2 (09:53→20:08)
[2020-11-24] MEDS: PANTOPRAZOLE 40 MG/10 ML VIAL IV SCH (09:54)
[2020-11-24] MEDS: BACLOFEN 10 MG TAB PO SCH ×2 (09:54→20:08)
[2020-11-24] MEDS: METOPROLOL TARTRATE 25 MG TAB PO SCH ×2 (09:54→20:06)
[2020-11-24] MEDS: ACETAMINOPHEN TAB 325 MG TAB PO PRN (09:54)
--- NOTE | 2020-11-24 10:23 | P.PN ---
Subjective Progress Note Date: 11/24/20 HISTORY OF PRESENT ILLNESS: Patient examined this morning at the bedside. Patient is confused the time of examination. He denies chest pain or pressure. He denies shortness of breath. Telemetry reveals sinus mechanism. Patient is having short runs of atrial fibrillation with RVR in converting spontaneously back to sinus mechanism. Patient is currently on amiodarone 400 mg twice a day. PHYSICAL EXAM: VITAL SIGNS: Reviewed. GENERAL: Well-developed in no acute distress. NECK: Supple. No JVD or thyromegaly LUNGS: Respirations even and unlabored. Lungs essentially clear to auscultation bilaterally. HEART: Regular rate and rhythm. S1 and S2 heard. EXTREMITIES: Normal range of motion. No clubbing or cyanosis. Peripheral pulses intact. No lower extremity edema ASSESSMENT: Paroxysmal atrial fibrillation with RVR, status post cardioversion in the emergency room Pneumocephalus Encephalopathy History of TIA Acute kidney injury COPD Osteoarthritis PLAN: Obtain 2-D echo to assess cardiac structure and function Continue amiodarone Add metoprolol 25 mg twice a day Case discussed with Dr. Gibbs, neurology, yesterday who felt the patient was high risk for anticoagulation and recommended the use of only aspirin at this time. Further recommendations pending patient course Nurse practitioner note has been reviewed by physician. Signing provider agrees with the documented findings, assessment, and plan of care. Objective - Vital Signs Vital signs: Vital Signs Temp 97.1 F L 11/24/20 03:21 Pulse 94 11/24/20 03:21 Resp 18 11/24/20 03:21 BP 112/67 11/24/20 03:21 Pulse Ox 100 11/24/20 03:21 Intake & Output 11/23/20 11/24/20 11/24/20 18:59 06:59 18:59 Intake Total 750.303 240 Output Total 800 450 275 Balance -49.697 -210 -275 Weight 47.5 kg 54 kg Intake: Intake, IV Titration 152.303 Amount Amiodarone 450 mg In 100.835 Dextrose 5% in Water 250 ml @ 0.5 MG/MIN 16.667 mls/hr IV .Q15H [facility] Rx#: [id number] Heparin Sod,Pork in 0.45% 51.468 NaCl 25,000 unit In 0.45 % NaCl 1 250ml.bag @ 12 UNITS/KG/HR 7.893 mls/hr IV .Q24H [facility] Rx#: [id number] Oral 598 240 Output: Urine 800 450 275 Other: Voiding Method Indwelling Catheter Indwelling Catheter # Voids 250 # Bowel Movements 1 - Labs CBC & Chem 7: 11/24/20 03:37 11/24/20 03:37 Labs: Abnormal Lab Results - Last 24 Hours (Table) 11/24/20 11/24/20 Range/Units 03:37 03:37 RBC 3.22 L (4.30-5.90) m/uL Hgb 9.2 L (13.0-17.5) gm/dL Hct 30.2 L (39.0-53.0) % MCHC 30.4 L (31.0-37.0) g/dL RDW 16.8 H (11.5-15.5) % Chloride 114 H (98-107) mmol/L Carbon Dioxide 19 L (22-30) mmol/L BUN 36 H (9-20) mg/dL Creatinine 1.84 H (0.66-1.25) mg/dL Calcium 8.0 L (8.4-10.2) mg/dL
--- NOTE | 2020-11-24 11:57 | P.CNOR ---
History of Present Illness - HPI Consult date: 11/24/20 History of present illness: 70 yo male who was brought up from a care facility in a different state by his granddaughter was found to have multiple chronic medical problems that were not being resolved in this facility. Here he was found to have multiple open wounds, malnurishment among other findings was pneumocephalus on his brain freddie ging. He went through a multitude of other imaging as well as work up protocols per primary team as he has not been getting work up he needs elsewhere. Here he has been stable and the pneumocephalus has since resolved. He is very weak and has a bmi of 18 currently. He is sitting in bed today eating doughnut holes for breakfast. He states he is feeling better. States his legs are weak but that his arms are stronger. He states the last time he walked was a while ago and he guessed about 4-5 weeks but he was unsure. He states no pain in his neck, back or legs. states no pain in his arms or radiating pain. States no numbness/tingling. Denies any bowel or bladder issues that he knows of but he does have a catheter at this time. He states he can feel his genitals and does not c/o numbness in them. Review of Systems 14 points review of systems completed and as stated in HPI, all other systems reviewed are negative. Constitutional: Reports as per HPI Past Medical History Past Medical History: Asthma, COPD, CVA/TIA, Osteoarthritis (OA) Additional Past Medical History / Comment(s): hip fx History of Any Multi-Drug Resistant Organisms: None Reported Past Surgical History: Joint Replacement Additional Past Surgical History / Comment(s): facial surgery, testicular surgery, knee left Past Anesthesia/Blood Transfusion Reactions: No Reported Reaction, Motion Sickness Past Psychological History: No Psychological Hx Reported Smoking Status: Unknown if ever smoked Past Alcohol Use History: Rare Past Drug Use History: Marijuana - Past Family History Father Family Medical History: Cancer Additional Family Medical History / Comment(s): colon CA Mother Family Medical History: CVA/TIA Additional Family Medical History / Comment(s): Fall with subdural hematoma Brother(s) Additional Family Medical History / Comment(s): committed suicide Medications and Allergies Home Medications Medication Instructions Recorded Confirmed Type Aspirin 325 mg PO W/BRKFST 11/22/20 11/22/20 History Gabapentin [Neurontin] 300 mg PO W/BRKFST 11/22/20 11/22/20 History Allergies Allergy/AdvReac Type Severity Reaction Status Date / Time No Known Allergies Allergy Verified 11/22/20 07:59 Physical Examination Osteopathic Statement: *. No significant issues noted on an osteopathic structural exam other than those noted in the History and Physical/Consult. PHYSICAL EXAMINATION: Vitals: Stable General: Awake, alert, appropriate for age, in no acute distress. Somewhat cachectic and unkempt looking HEENT: No unusual neck masses around region of lateral neck triangle, thyroid, supraclavicular groove. Extremities: Skin warm and dry without no acute lesions, coloration, temperature, skin intact, no tenderness or erythema. Integument: Hairy patches: Absent Dorsal skin dimples: Absent Cafe au lait spots: Absent Surgical incisions: none Grade 2 ulcers of the buttock and sacral region Multiple different skin ulcerations and abrasions lower extremities bilaterally Palpation: Please see Pain drawing on Intake sheet for further detail. (Tenderness = T, Nontender = NT, Swelling = S, Ecchymosis = E) Findings on Midline and paraspinal palpation and percussion: Cervical: NT Thoracic: NT Lumbar: NT Sacral: NT Special findings: None POSTURAL and MUSCULO-SKELETAL EVALUATION: Neck ROM: [Unrestricted in six directions] Lumbar ROM: limited due to patient's current medical status Shoulder ROM: Symmetric in abduction, ER/IR Hip ROM: Symmetric in abduction, adduction, ER/IR Knee ROM: Symmetric and intact in Flexion / extension Hands: Normal appearing structure L and R, arthritic with abrasions Feet: Normal appearing structure L and R, arthritic with abrasions VASCULAR STATUS : Wrist Pulses: [2/4 bilateral radial and ulnar] Pedal Pulses: [2/4 bilateral DP and PT] Color: [Normal] Edema: [None] NEUROLOGIC EXAMINATION: Mental Status: Awake and alert, oriented, with normal attention, concentration and memory, and fluent, appropriate speech. Cranial Nerves: I: Olfactory not tested. II: Visual acuity normal, no visual field deficit noted with confrontation. III,IV: Normal pupillary reflexes & intact extraocular movements without nystagmus. V,: Intact symmetrical facial sensation. VII: Intact symmetrical facial motor movement VIII: Hearing intact. IX,X: Intact gag, swallow, & normal voice. XI: Sternocleidomastoid, trapezius function intact. XII: Tongue midline with normal movements. Special Tests: L'hermitte's Sign: Absent Spurling'Sign: Absent Bilateral Cubital percussion test: Absent Bilateral Sofia-Tinel sign - Carpal region: Absent Bilateral Straight Leg Raising: Absent Bilateral Motor Exam (0-5/5, N/T) STRENGTH UPPER EXTREMITY 4/5 strength in all major muscle groups in the upper extremities bilaterally as is due to the patient's medical status there is no focal deficits at this time LOWER EXTREMITY 3/5 strength knee flexion and extension bilaterally. Patient has weakness in hip flexion bilaterally. He has 4+/5 strength in dorsiflexion plantar flexion bilaterally. REFLEXES Biecp: RIGHT [2] LEFT [2] Tricep: RIGHT [2] LEFT [2] Brachioradialis: RIGHT [2] LEFT [2] Patellar: RIGHT [2] LEFT [2] Achilles: RIGHT [2] LEFT [2] Pathological Reflexes Armas's: RIGHT [Absent] LEFT [Absent] Babinski: RIGHT [Absent] LEFT [Absent] Clonus: RIGHT [None] LEFT [None] SENSORY Joint Position: [Intact bilaterally] Vibration [Intact bilaterally] Pain and LT sense [Intact C5-T1 and L2-S1] Dermatomal deficit [None] Results CT of the brain and cervical spine and thoracic spine and lumbar spine are reviewed. The cervical spine there is mild spondylosis throughout however there is stability throughout the occipital cervical C1 2 instability cervical cervical spine with no evidence of fracture dislocation or compression at this time. There is thoracic kyphosis noted on the thoracic CT exam however this is physiologic. There are no acute fractures in the upper thoracic spine in the lower thoracic spine between T11 and T12 there is some bony erosion spondylosis however no fracture dislocation. There is an L1 vertebral compression fracture which is likely chronic in nature. There is an L4 vertebral compression fractures is also likely chronic in nature. These are about 20% compressed. There are no evidence of instability there is no other fracture dislocation at this time which is noted. MRI of the brain is reviewed as well radiology read below IMPRESSION: Suboptimal study with moderate diffuse cerebral atrophy and chronic small vessel ischemic change along with old left superior parietal lobe posterior watershed infarct are redemonstrated. No MRI evidence for recent infarct. Pneumocephalus if suspected clinically is better evaluated on CT versus MRI. CT of the brain is reviewed radiology read below IMPRESSIONS: 1. Resolution of previous pneumocephalus. 2. Atrophy with periventricular white matter ischemic type changes. 3. Some limitations due to motion artifact - Labs Labs: Abnormal Lab Results - Last 24 Hours (Table) 11/24/20 11/24/20 Range/Units 03:37 03:37 RBC 3.22 L (4.30-5.90) m/uL Hgb 9.2 L (13.0-17.5) gm/dL Hct 30.2 L (39.0-53.0) % MCHC 30.4 L (31.0-37.0) g/dL RDW 16.8 H (11.5-15.5) % Chloride 114 H (98-107) mmol/L Carbon Dioxide 19 L (22-30) mmol/L BUN 36 H (9-20) mg/dL Creatinine 1.84 H (0.66-1.25) mg/dL Calcium 8.0 L (8.4-10.2) mg/dL H & H 11/22/20 11/23/20 11/24/20 Range/Units 07:35 04:02 03:37 Hgb 11.8 L 9.8 L D 9.2 L (13.0-17.5) gm/dL Hct 37.6 L 31.3 L 30.2 L (39.0-53.0) % Coagulation 11/22/20 Range/Units 07:35 INR 1.0 (<1.2) Result Diagrams: 11/24/20 03:37 11/24/20 03:37 Assessment and Plan Assessment: 70-year-old male with multiple medical comorbidities and complicated care and social issues Chronic lower lumbar vertebral compression fractures Plan: Appreciate consult Surgical intervention warranted at this time continue with conservative care per medicine and neurology teams Thank you very much this consultation
[2020-11-24] MEDS: APIXABAN 5 MG TAB PO SCH ×2 (13:50→20:08)
--- NOTE | 2020-11-24 14:22 | P.PN ---
Subjective Progress Note Date: 11/24/20 The patient was seen at bedside and per the nurse he is about the same. Objective - Vital Signs Vital signs: Vital Signs Temp 98.0 F 11/24/20 08:00 Pulse 156 H 11/24/20 08:00 Resp 18 11/24/20 08:00 BP 116/71 11/24/20 08:00 Pulse Ox 97 11/24/20 08:00 Intake & Output 11/23/20 11/24/20 11/24/20 18:59 06:59 18:59 Intake Total 750.303 240 Output Total 800 450 275 Balance -49.697 -210 -275 Weight 47.5 kg 54 kg Intake: Intake, IV Titration 152.303 Amount Amiodarone 450 mg In 100.835 Dextrose 5% in Water 250 ml @ 0.5 MG/MIN 16.667 mls/hr IV .Q15H [facility] Rx#: [id number] Heparin Sod,Pork in 0.45% 51.468 NaCl 25,000 unit In 0.45 % NaCl 1 250ml.bag @ 12 UNITS/KG/HR 7.893 mls/hr IV .Q24H [facility] Rx#: [id number] Oral 598 240 Output: Urine 800 450 275 Other: Voiding Method Indwelling Catheter Indwelling Catheter Indwelling Catheter # Voids 250 # Bowel Movements 1 - Exam GENERAL: The patient seems cachectic, lying in bed and is in mild acute distress. LUNG: Clear to auscultation bilaterally no wheezing noted throughout. Not la bored breathing. Is on nonrebreather NEUROLOGICAL: Higher mental function: The patient is awake, alert, oriented to self, place. He correctly stated the year but could not tell me month. Patient is following simple commands (sticking tongue out and showing thumbs up). No aphasia and no neglect. Cranial nerves: The pupils are round, equal and reactive to light. Visual griffin was hard to assess because of his cooperation but seem intact over the left eye but there seems loss over upper half of right eye to confrontation. Extraocular movement is intact no nystagmus is noted. Facial sensation is normal to touch throughout. The facial strength is normal throughout. Hearing is mildly to moderate decreased bilaterally to hand rub. Tongue is midline and moved [id number] without any difficulty. No dysarthria is noted. Motor: Gait is deferred because of his weakness. The strength is could not exam individual muscles because of his diffuse pain. He is able to lift bilateral upper extremities above gravity without focality while lower he was able to lift left lower extremity above gravity and able to bend right knee and slight extension of right knee. Bilateral ankles are 4 bilaterally. He had increase tone over bilateral knee and was in pain with flexing or extending his knee (Increase tone over the right > left). Cerebellum: Normal finger to nose bilaterally. Sensation: Sensation is normal to touch throughout. Reflexes (right/left): Brachioradialis is 2-3+ bilaterally. Otherwise 2+ throughout uppers. and lowers are hard to assess because of cooperation.. Ri ght patellar is 1+ otherwise 0 in lowers. Plantars are mute bilaterally. WORK-UP: Creatinine is 2.09 and it's trending down currently is 1.76. Calcium is 8.7, magnesium is 2.1. AST of 33 and ALT is 22 Ammonia level is less than 9 TSH is 2.530 Vitamin B12: 639 Folate: 6.9 [place]or virus PCR was not detected * CT of the head is reported as pneumocephalus of uncertain etiology. Trauma w as favored given the distribution including extracranial driver license technician space, intradural suprasellar cistern region, right carotid siphon on region and suspected extradural upper spinal canal. Atrophy with chronic-appearing white matter changes. I personally spoke with the reading radiologist regarding the findings and reviewed images. * Repeat CT of the head is reported as resolution of previous pneumocephalus. Atrophy with periventricular white matter ischemic type changes. Some limitation due to motion artifact. * CT of cervical spine was reported as no acute osseous abnormality. Diffuse de generative disc changes. It is reported as mild to moderate over C3-C4 on the left and moderate over C5-C6 bilaterally. * Facial x-ray is reported as no evidence for facial bone fracture. * CT cervical spine and the thoracic spine is reported as what's deformity noted at T6, T7, L1 and mildly along the anterior/superior endplate of L4. These are indeterminate age. Suspicious change to sit suggest acute change are not identified however. Degenerative disks changes in the low thoracic spine and lower lumbar spine discussed above. Mild anterior thecal sac compression due to endplate changes at L3 and L4. Correlate for fecal impaction at the rectum. Acute suspicion osseous change are not evident. * MRI the brain is reported as suboptimal study with moderate diffuse cerebral atrophy and chronic small vessel ischemic change along with old left appear parietal lobe posterior watershed infarct R redemonstrated. No MRI evidence for recent infarct. Pneumocephalus suspected clinically is better evaluated on a CT versus MRI. * Routine EEG on 11/23/2020 is abnormal. The background slowing suggestive of mild encephalopathy. There are no focal slowing, epileptiform discharges or seizure on the EEG. - Labs CBC & Chem 7: 11/24/20 03:37 11/24/20 03:37 Labs: Abnormal Lab Results - Last 24 Hours (Table) 11/24/20 11/24/20 Range/Units 03:37 03:37 RBC 3.22 L (4.30-5.90) m/uL Hgb 9.2 L (13.0-17.5) gm/dL Hct 30.2 L (39.0-53.0) % MCHC 30.4 L (31.0-37.0) g/dL RDW 16.8 H (11.5-15.5) % Chloride 114 H (98-107) mmol/L Carbon Dioxide 19 L (22-30) mmol/L BUN 36 H (9-20) mg/dL Creatinine 1.84 H (0.66-1.25) mg/dL Calcium 8.0 L (8.4-10.2) mg/dL Assessment and Plan Assessment: Pneumocephalus of unknown exact etiology (unknown duration). Had fall about fall 2 weeks ago and possible cause but not definitive.---Pneumocephalus resolved on repeat images Encephalopathy of unknown etiology at this time. Patient has component of metabolic of encephalopathy. History of falls Cervical spondylosis (mild to moderate over left C3-C4 and moderate over C5-C6) Lumbosacral spondylosis (with mild compression fracture over L1-L2 L3-L4 on CT) Bilateral lower extremity paresis with spasticity. Atrial fibrillation with RVR Chronic neck pain Chronic lower back pain History of TIA (1994)/Stroke over left parietal (seemed like watershed) Acute kidney injury--slightly trending up Osteoarthritis History of COPD Plan: Continue Ventimask with oxygen saturation more than 95% for now. I started the patient on folic acid 1mg daily since he has low normal. Continue baclofen 5 mg 1 tablet twice a day. Orthopedic team is consulted. Continue neuro checks. Cardiology is consulted regarding the patient atrial fibrillation. I spoke with Dr. Ramos (real estate sales manager) and I notified him that he was clear to start anticoagulation (it was felt the benefit outweigh the risks). I stopped ASA since cardiology is starting on anticoagulation. Once off anticoagulation can be on ASA 81mg daily. Continue Lipitor 20mg qhs for secondary stroke prophylaxis. We'll defer the rest of the medical management to the primary team. On discharge the patient needs to follow-up with a neurologist as well neurosurgeon within 1-2 weeks. The plan is discussed with the patient's daughter and his nurse. Freeman Gibbs M.D. Neuro-hospitalist Time with Patient: Less than 30
[2020-11-24] MEDS: FOLIC ACID 1 MG TAB PO SCH (18:51)
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
[2020-11-24] MEDS: ATORVASTATIN 20 MG TAB PO SCH (20:08)
[2020-11-24 20:28] LABS: Appearance,Urine Cloudy (Clear); Bacteria,Urine Occasional /hpf; Bilirubin,Urine Negative (Negative); Blood,Urine Trace (Negative); Color,Urine Yellow; Glucose,Urine (UA) Negative (Negative); Ketones,Urine Negative (Negative); Leukocyte Esterase,Urine Large (Negative); Mucus,Urine Rare /hpf; Nitrite,Urine Positive (Negative); Protein,Urine 1+ (Negative); RBC,Urine 6 /hpf (0-5); Specific Gravity,Urine 1.021 (1.001-1.035); Urobilinogen,Urine <2.0 mg/dL (<2.0); WBC,Urine >182 /hpf (0-5)
[2020-11-25] MEDS: AMIODARONE 200 MG TAB PO SCH ×2 (08:39→22:18)
[2020-11-25] MEDS: FOLIC ACID 1 MG TAB PO SCH (08:39)
[2020-11-25] MEDS: APIXABAN 5 MG TAB PO SCH ×2 (08:39→22:18)
[2020-11-25] MEDS: METOPROLOL TARTRATE 25 MG TAB PO SCH (08:39)
[2020-11-25] MEDS: BACLOFEN 10 MG TAB PO SCH ×2 (08:40→22:18)
[2020-11-25] MEDS: PANTOPRAZOLE 40 MG/10 ML VIAL IV SCH (08:40)
--- NOTE | 2020-11-25 10:02 | P.PN ---
Subjective Progress Note Date: 11/25/20 The patient seen at bedside and he is competing with his nurse and she stated that he is more confused today compared to yesterday. His found that the patient has underlying acute urinary tract infection. Per the nurse the patient and keeps on taking off his oxygen. Patient's heart rate has been in the range of 90s to 100/50-60's. He is on metoprolol 25 mg 1 tablet twice a day. Objective - Vital Signs Vital signs: Vital Signs Temp 98 F 11/25/20 04:00 Pulse 79 11/25/20 04:00 Resp 18 11/25/20 04:00 BP 102/60 11/25/20 04:00 Pulse Ox 99 11/25/20 04:00 Intake & Output 11/24/20 11/25/20 11/25/20 18:59 06:59 18:59 Intake Total 240 Output Total 275 650 Balance -275 -410 Weight 44.5 kg Intake: Oral 240 Output: Urine 275 650 Other: Voiding Method Indwelling Catheter Indwelling Catheter - Exam GENERAL: The patient seems cachectic, lying in bed and is in mild acute distress. LUNG: Clear to auscultation bilaterally no wheezing noted throughout. Not labored breathing. Is on nonrebreather NEUROLOGICAL: Limited because of his condition (confusion). Higher mental function: The patient is awake, alert, oriented to self only. Upon asking where he was at he kept on repeating his name. He follow one command and that is lifting his arms above gravity. Cranial nerves: The pupils are round, equal and reactive to light. Could not assess visual griffin. He is tracking throughout the room and no noticeable nystagmus. No facial droop. No dysarthria is noted. Motor: Gait is deferred because of his weakness. The strength is could not exam individual muscles because of his cooperation. He was able to lift bilateral upper extremities symmetrically above gravity without focality and not lifting lower extremities. He had increase tone over bilateral lower extremities ( bilateral knee, the right > left). Cerebellum: Could not assess. Sensation: Could not assess. Reflexes (right/left): Brachioradialis is 2-3+ bilaterally. Otherwise 2+ throughout uppers. and lowers are hard to assess because of cooperation.. Right patellar is 1+ otherwise 0 in lowers. Plantars are mute bilaterally. WORK-UP: * Creatinine is 2.09 and it's trending down currently is 1.76. * Calcium is 8.7, magnesium is 2.1. * AST of 33 and ALT is 22 * Ammonia level is less than 9 * TSH is 2.530 * Vitamin B12: 639 * Serum Folate: 6.9 * Cordero virus PCR was not detected * Urinalysis is suggestive of urinary tract infection. * CT of the head is reported as pneumocephalus of uncertain etiology. Trauma was favored given the distribution including extracranial specification manager space, intradural suprasellar cistern region, right carotid siphon on region and suspected extradural upper spinal canal. Atrophy with chronic-appearing white matter changes. I personally spoke with the reading radiologist regarding the findings and reviewed images. * Repeat CT of the head is reported as resolution of previous pneumocephalus. Atrophy with periventricular white matter ischemic type changes. Some limitation due to motion artifact. * CT of cervical spine was reported as no acute osseous abnormality. Diffuse degenerative disc changes. It is reported as mild to moderate over C3-C4 on the left and moderate over C5-C6 bilaterally. * Facial x-ray is reported as no evidence for facial bone fracture. * CT cervical spine and the thoracic spine is reported as what's deformity noted at T6, T7, L1 and mildly along the anterior/superior endplate of L4. These are indeterminate age. Suspicious change to sit suggest acute change are not identified however. Degenerative disks changes in the low thoracic spine and lower lumbar spine discussed above. Mild anterior thecal sac compression due to endplate changes at L3 and L4. Correlate for fecal impaction at the rectum. Acute suspicion osseous change are not evident. * MRI the brain is reported as suboptimal study with moderate diffuse cerebral atrophy and chronic small vessel ischemic change along with old left appear parietal lobe posterior watershed infarct R redemonstrated. No MRI evidence for recent infarct. Pneumocephalus suspected clinically is better evaluated on a CT versus MRI. * Routine EEG on 11/23/2020 is abnormal. The background slowing suggestive of mild encephalopathy. There are no focal slowing, epileptiform discharges or seizure on the EEG. - Labs CBC & Chem 7: 11/24/20 03:37 11/24/20 03:37 Labs: Abnormal Lab Results - Last 24 Hours (Table) 11/24/20 Range/Units 20:11 Urine Protein 1+ H (Negative) Urine Blood Trace H (Negative) Ur Leukocyte Esterase Large H (Negative) Urine RBC 6 H (0-5) /hpf Urine WBC >182 H (0-5) /hpf Urine WBC Clumps Many H (None) /hpf Urine Bacteria Occasional H (None) /hpf Urine Mucus Rare H (None) /hpf Assessment and Plan Assessment: Encephalopathy that is worsening likely due to underlying acute UTI and component of metabolic encephalopathy. Pneumocephalus of unknown exact etiology (unknown duration). Had fall about fall 2 weeks ago and possible cause but not definitive.---Pneumocephalus resolved on repeat images History of falls Cervical spondylosis (mild to moderate over left C3-C4 and moderate over C5-C6) Lumbosacral spondylosis (with mild compression fracture over L1-L2 L3-L4 on CT) Bilateral lower extremity paresis with spasticity. 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 Continue Ventimask with oxygen saturation more than 95% for now (he keeps on taking his oxygen off since he is altered). Continue folic acid 1mg daily since he has low normal. Continue baclofen 5 mg 1 tablet twice a day. Orthopedic team is consulted and recommend conservative management. Continue neuro checks. Cardiology is consulted regarding the patient atrial fibrillation. He is currently on Eliquis 5mg 1 tab bid (I spoke with Dr. Ramos and notified him that he was clear for use of anticoagulation (since pneumocephalus cleared and the benefits outweigh the risks. Dr. Ramos notified me that he place him on anticoagulation for 21 day then stop. I will defer the duration of anticoagulation to cardiology team. If patient has any further falls recommend of avoiding anticoagulation since risk of bleed. If anticoagulation is stopped then recommend ASA 81mg daily. Continue Lipitor 20mg qhs for secondary stroke prophylaxis. We'll defer the rest of the medical management to the primary team. On discharge the patient needs to follow-up with a neurologist as well neurosurgeon within 1-2 weeks. The plan is discussed with the patient's nurse and his daughter (Johanna via phone). Dr. Alvarez will take over neurology service tomorrow AM. Freeman Gibbs M.D. Neuro-hospitalist Time with Patient: Less than 30
--- NOTE | 2020-11-25 10:43 | P.PN ---
Subjective Progress Note Date: 11/25/20 HISTORY OF PRESENT ILLNESS: Patient examined this morning at the bedside. Patient is confused the time of examination. He denies chest pain or pressure. He denies shortness of breath. Telemetry reveals sinus mechanism. Patient is having short runs of atrial fibrillation with RVR in converting spontaneously back to sinus mechanism. Patient is currently on amiodarone 400 mg twice a day. 11/25/2020 Patient examined this morning at the bedside. Patient is confused at the time of examination. Dr. Gibbs and Dr. Barbour spoke yesterday and agreed to place the patient on oral intake relation. He is currently receiving Eliquis 5mg twice a day. Per nursing, the patient's blood pressure has been running on the lower side. PHYSICAL EXAM: VITAL SIGNS: Reviewed. GENERAL: Well-developed in no acute distress. NECK: Supple. No JVD or thyromegaly LUNGS: Respirations even and unlabored. Lungs essentially clear to auscultation bilaterally. HEART: Regular rate and rhythm. S1 and S2 heard. EXTREMITIES: Normal range of motion. No clubbing or cyanosis. Peripheral pulses intact. No lower extremity edema ASSESSMENT: Paroxysmal atrial fibrillation with RVR, status post cardioversion in the emergency room Pneumocephalus Encephalopathy History of TIA Acute kidney injury COPD Osteoarthritis Urinary tract infection PLAN: 2-D echo ordered. Await results Continue anticoagulation with Eliquis Decrease metoprolol to 12.5 mg twice a day. Continue telemetry monitoring Further recommendations pending patient course Nurse practitioner note has been reviewed by physician. Signing provider agrees with the documented findings, assessment, and plan of care. Objective - Vital Signs Vital signs: Vital Signs Temp 98 F 11/25/20 04:00 Pulse 79 11/25/20 04:00 Resp 18 11/25/20 04:00 BP 102/60 11/25/20 04:00 Pulse Ox 99 11/25/20 04:00 Intake & Output 11/24/20 11/25/20 11/25/20 18:59 06:59 18:59 Intake Total 240 Output Total 275 650 Balance -275 -410 Weight 44.5 kg Intake: Oral 240 Output: Urine 275 650 Other: Voiding Method Indwelling Catheter Indwelling Catheter - Labs CBC & Chem 7: 11/24/20 03:37 11/24/20 03:37 Labs: Abnormal Lab Results - Last 24 Hours (Table) 11/24/20 Range/Units 20:11 Urine Protein 1+ H (Negative) Urine Blood Trace H (Negative) Ur Leukocyte Esterase Large H (Negative) Urine RBC 6 H (0-5) /hpf Urine WBC >182 H (0-5) /hpf Urine WBC Clumps Many H (None) /hpf Urine Bacteria Occasional H (None) /hpf Urine Mucus Rare H (None) /hpf
--- NOTE | 2020-11-25 12:19 | CT ---
EXAMINATION TYPE: CT brain wo con DATE OF EXAM: 11/25/2020 COMPARISON: 11/23/2020 HISTORY: AMS TECHNIQUE: CT scan of the head performed without contrast CT DLP: 1196.4 mGycm Automated exposure control for dose reduction was used. FINDINGS: No pneumocephalus seen. No acute intracranial hemorrhage, midline shift or mass effect. Duke-white ma tter differentiation is preserved. Are stable changes related to chronic microvascular ischemia, lacunar infarcts and brain volume loss. No acute orbital, osseous or soft tissue abnormality seen. Mild soft tissue swelling again seen over the right frontal lobe. There is carotid calcification seen in the intracranial internal carotid arteries. Mastoid air cells and paranasal sinuses are aerated. IMPRESSION: NO PNEUMOCEPHALUS, ACUTE INTRACRANIAL HEMORRHAGE MIDLINE SHIFT OR MASS EFFECT. CHRONIC CHANGES ABIEL CRIBED IN BODY OF REPORT. NO SIGNIFICANT CHANGE SINCE PRIOR.
[2020-11-25] MEDS: ATORVASTATIN 20 MG TAB PO SCH (22:18)
[2020-11-25] MEDS: METOPROLOL TARTRATE 12.5 MG TAB PO SCH (22:24)
[2020-11-25] MEDS: SODIUM CHLORIDE 0.9% 1,000 ML IV SCH (22:46)
[2020-11-26] MEDS: PANTOPRAZOLE 40 MG/10 ML VIAL IV SCH (08:20)
[2020-11-26] MEDS: BACLOFEN 10 MG TAB PO SCH ×3 (08:20→21:00)
[2020-11-26] MEDS: FOLIC ACID 1 MG TAB PO SCH (08:20)
[2020-11-26] MEDS: AMIODARONE 200 MG TAB PO SCH ×3 (08:21→21:00)
[2020-11-26] MEDS: APIXABAN 5 MG TAB PO SCH ×2 (08:21→20:44)
[2020-11-26] MEDS: METOPROLOL TARTRATE 12.5 MG TAB PO SCH ×3 (08:21→21:00)
[2020-11-26] MEDS: SODIUM CHLORIDE 0.9% 1,000 ML IV SCH ×2 (08:21→20:42)
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
--- NOTE | 2020-11-26 12:33 | P.PN ---
Subjective This is a 70-year-old male with a past medical history of asthma, COPD, CVA/TIA, osteoarthritis, marijuana use, paroxysmal atrial fibrillation. 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 Did see Dr. Sinclair in 2017, underwent cardiac catheterization which revealed no significant obstructive coronary artery disease. Cardiology is consulted for atrial fibrillation with rapid ventricular response. Patient presents to [facility] with symptoms of confusion, altered mental status and not feeling well. He was found to be in nature fibrillation with rapid ventricular response with heart rates in the 160s to 180s, he was hemodynamically unstable with hypertension. He underwent cardioversion by the emergency room doctor because of hemodynamic instability. Initial CT head showed pneumocephalus of uknown etiology and neurology was consulted. Patient examined this morning at the bedside. Patient is confused the time of examination. He denies chest pain or pressure. He denies shortness of breath. Telemetry reveals sinus mechanism HR have been 70s-80s, occasionally low 100s. Patient is currently on amiodarone 400 mg twice a day (started 11/23/20). Eliquis 5 mg twice a day, atorvastatin 20 mg nightly. Echocardiogram was completed on 11/24/2020, read by Dr. Ramos which revealed EF of 5055% moderate to valve leaflets mildly thickened, no significant wall motion abnormalities. PHYSICAL EXAM: VITAL SIGNS: 112/60, heart rate 62, afebrile, maintaining saturations on room air GENERAL: In no acute distress NECK: Supple. No JVD or thyromegaly LUNGS: Respirations even and unlabored. Lungs essentially clear to auscultation bilaterally. HEART: Regular rate and rhythm. S1 and S2 heard. EXTREMITIES: Normal range of motion. No clubbing or cyanosis. Peripheral pulses intact. No lower extremity edema ASSESSMENT: Paroxysmal atrial fibrillation with RVR, status post cardioversion in the emergency room Pneumocephalus Encephalopathy History of TIA Cervical spondylosis Acute kidney injury COPD Osteoarthritis Urinary tract infection PLAN: Echocardiogram was completed on 11/24/2020, read by Dr. Ramos which revealed EF of 5055%, no significant wall motion abnormalities. Patient is maintaining sinus mechanism. Continue anticoagulation with Eliquis Case management consultation for Eliquis coverage. This patient is currently [facility] in a [place] in the medication will be covered. If patient has further falls, recommend avoiding anticoagulation due to the risk of bleeding Continue metoprolol to 12.5 mg twice a day Continue amiodarone taper, instructions placed in patient's discharge instructions. Patient is stable from a cardiology perspective. We will follow the patient as needed. Please reach out for further questions or concerns. Recommend close follow up with Dr. Ramos in the office. Nurse practitioner note has been reviewed by physician. Signing provider agrees with the documented findings, assessment, and plan of care. Objective - Vital Signs Vital signs: Vital Signs Temp 98.1 F 11/26/20 11:22 Pulse 62 11/26/20 11:22 Resp 18 11/26/20 11:22 BP 112/69 11/26/20 11:22 Pulse Ox 95 11/26/20 11:49 Intake & Output 11/25/20 11/26/20 11/26/20 18:59 06:59 18:59 Intake Total 236 600 Output Total 775 300 Balance -539 300 Weight 67.5 kg Intake: Intake, IV Titration 600 Amount Sodium Chloride 0.9% 1, 600 000 ml @ 75 mls/hr IV . [id number] [facility] Rx#:[id number] Oral 236 Output: Urine 775 300 Other: Voiding Method Indwelling Catheter Indwelling Catheter Indwelling Catheter # Voids 1 # Bowel Movements 1 - Labs CBC & Chem 7: 11/24/20 03:37 11/24/20 03:37 Labs: Microbiology - Last 24 Hours (Table) 11/24/20 20:11 Urine Culture - Preliminary Urine,Clean Catch
[2020-11-26 13:14] LABS: Anisocytosis Slight; Basophils % (A) 0 %; Eosinophils # (A) 0.1 k/uL (0-0.7); Eosinophils % (A) 1 %; HCT 31.1 % (39.0-53.0); HGB 9.7 gm/dL (13.0-17.5); Hypochromasia Slight; Lymphocytes % (A) 12 %; MCH 29.1 pg (25.0-35.0); MCV 93.8 fL (80.0-100.0); Mean Platelet Volume 7.1; Monocytes # (A) 0.4 k/uL (0-1.0); Monocytes % (A) 5 %; Neutrophils # (A) 6.8 k/uL (1.3-7.7); Neutrophils % (A) 80 %; Platelet Count 340 k/uL (150-450); RBC 3.32 m/uL (4.30-5.90); RDW 16.8 % (11.5-15.5); WBC 8.6 k/uL (3.8-10.6)
[2020-11-26 13:23] LABS: Calcium 8.2 mg/dL (8.4-10.2); Potassium 3.8 mmol/L (3.5-5.1)
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
[2020-11-26] MEDS: ATORVASTATIN 20 MG TAB PO SCH ×2 (20:44→21:00)
[2020-11-26] MEDS ORDERED: DILTIAZEM 125 MG in SODIUM CHLORIDE 0.9% 100 ML IV SCH (23:45)
[2020-11-26] MEDS ORDERED: HEPARIN SOD,PORK IN 0.45% NACL 25,000 UNIT in 0.45% NACL 1 250ML.BAG IV SCH (23:45)
[2020-11-26] MEDS ORDERED: FUROSEMIDE 10 MG/ML 4 ML VIAL IV STA (23:46)
[2020-11-26] MEDS ORDERED: DILTIAZEM DRIP BOLUS FROM BAG 1 MG SOLN IV ONE (23:47)
[2020-11-26] MEDS ORDERED: HEPARIN SODIUM 1,000 UN/ML (10ML VL) IV PRN (23:50)
--- NOTE | 2020-11-27 00:15 | XR ---
EXAMINATION TYPE: XR chest 1V portable DATE OF EXAM: 11/26/2020 COMPARISON: 11/22/2020 HISTORY: Short of breath TECHNIQUE: FINDINGS: Heart is enlarged. There is pulmonary interstitial and airspace edema. This is more on the right side. Mediastinum is normal. Bony thorax is intact. IMPRESSION: There is new bilateral moderate pulmonary edema compared to old exam and could be develop ing RDS. Congestive heart failure not excluded.
[2020-11-27 00:36] LABS: Anisocytosis Slight; Basophils % (A) 0 %; Eosinophils # (A) 0.1 k/uL (0-0.7); Eosinophils % (A) 1 %; HCT 33.8 % (39.0-53.0); HGB 10.5 gm/dL (13.0-17.5); Hypochromasia Moderate; Lymphocytes % (A) 11 %; MCH 29.2 pg (25.0-35.0); MCHC 30.9 g/dL (31.0-37.0); MCV 94.2 fL (80.0-100.0); Mean Platelet Volume 7.1; Monocytes # (A) 0.4 k/uL (0-1.0); Monocytes % (A) 4 %; Neutrophils # (A) 7.8 k/uL (1.3-7.7); Neutrophils % (A) 82 %; Platelet Count 385 k/uL (150-450); RBC 3.59 m/uL (4.30-5.90); RDW 16.8 % (11.5-15.5); WBC 9.4 k/uL (3.8-10.6)
[2020-11-27 00:44] LABS: INR 1.2 (<1.2); Prothrombin Time 12.5 sec (9.0-12.0)
[2020-11-27 07:53] LABS: Anisocytosis Slight; Basophils % (A) 0 %; Eosinophils % (A) 0 %; HCT 33.4 % (39.0-53.0); HGB 10.3 gm/dL (13.0-17.5); Hypochromasia Slight; Lymphocytes # (A) 1.3 k/uL (1.0-4.8); Lymphocytes % (A) 14 %; MCHC 30.9 g/dL (31.0-37.0); MCV 93.7 fL (80.0-100.0); Mean Platelet Volume 7.5; Monocytes # (A) 0.5 k/uL (0-1.0); Monocytes % (A) 5 %; Neutrophils # (A) 7.9 k/uL (1.3-7.7); Neutrophils % (A) 80 %; Platelet Count 395 k/uL (150-450); RBC 3.57 m/uL (4.30-5.90); RDW 16.8 % (11.5-15.5); WBC 9.9 k/uL (3.8-10.6)
[2020-11-27 07:54] LABS: INR 1.2 (<1.2); Partial Thromboplastin Time 65.8 sec (22.0-30.0); Prothrombin Time 12.9 sec (9.0-12.0)
[2020-11-27] MEDS: PANTOPRAZOLE 40 MG/10 ML VIAL IV SCH (08:01)
[2020-11-27 08:04] LABS: Calcium 8.4 mg/dL (8.4-10.2); Potassium 3.9 mmol/L (3.5-5.1)
[2020-11-27] MEDS: FOLIC ACID 1 MG TAB PO SCH (09:05)
[2020-11-27] MEDS: METOPROLOL TARTRATE 12.5 MG TAB PO SCH ×2 (09:05→20:55)
[2020-11-27] MEDS: AMIODARONE 200 MG TAB PO SCH ×2 (09:05→20:55)
[2020-11-27] MEDS: BACLOFEN 10 MG TAB PO SCH ×2 (09:05→20:55)
[2020-11-27] MEDS: APIXABAN 5 MG TAB PO SCH ×2 (10:03→20:55)
[2020-11-27] MEDS ORDERED: FUROSEMIDE 10 MG/ML 4 ML VIAL IV STA (12:21)
--- NOTE | 2020-11-27 12:26 | P.PN ---
Subjective This is a 70-year-old male with a past medical history of asthma, COPD, CVA/TIA, osteoarthritis, marijuana use, paroxysmal atrial fibrillation. 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 Did see Dr. Sinclair in 2017, underwent cardiac catheterization which revealed no significant obstructive coronary artery disease. Cardiology is consulted for atrial fibrillation with rapid ventricular response. Patient presents to [facility] with symptoms of confusion, altered mental status and not feeling well. He was found to be in nature fibrillation with rapid ventricular response with heart rates in the 160s to 180s, he was hemodynamically unstable with hypertension. He underwent cardioversion by the emergency room doctor because of hemodynamic instability. Initial CT head showed pneumocephalus of uknown etiology and neurology was consulted. Echocardiogram was completed on 11/24/2020, read by Dr. Ramos which revealed EF of 5055% moderate mitral regurgitation, mitral valve leaflets mildly thickened, no significant wall motion abnormalities. 11/27/20: Patient examined this morning at the bedside. Patient is confused the time of examination. He states he does have pain, but unable to verbalize where his pain is. He denies chest pain or pressure. He denies shortness of breath. Yesterday, patient did not take his afternoon meds per nursing due to confusion. Patient went into atrial fibrillation with RVR overnight HR 140s. He was started on an IV cardizem drip, currently at 5mg/hr and placed on an IV heparin drip because he was not taking his PO eliquis. He converted back to sinus mechanism around 0200. Telemetry reveals sinus mechanism HR have been 60s, occasionally low 100s. Patient is currently on amiodarone 400 mg twice a day (started 11/23/20), IV heparin, IV cardizem, metoprolol tartrate 12.5 mg twice a day, atorvastatin 20 mg nightly. PHYSICAL EXAM: VITAL SIGNS: Oh 4/68, heart rate 71, afebrile, maintaining oxygen saturation 97% on room air GENERAL: In no acute distress NECK: Supple. No JVD or thyromegaly LUNGS: Respirations even and unlabored. Lungs essentially clear to auscultation bilaterally. HEART: Regular rate and rhythm. S1 and S2 heard. Systolikc murmur at apex EXTREMITIES: Normal range of motion. No clubbing or cyanosis. Peripheral puls es intact. No lower extremity edema ASSESSMENT: Paroxysmal atrial fibrillation with RVR, status post cardioversion in the emergency room Pneumocephalus Encephalopathy History of TIA Cervical spondylosis Acute kidney injury COPD Osteoarthritis Urinary tract infection PLAN: -Echocardiogram was completed on 11/24/2020, read by Dr. Ramos which revealed EF of 5055%, as noted above. Patient is maintaining sinus mechanism. -Per nursing patient is able to take his PO medications now, he is maintaining sinus mechanism this morning. -We will discontinue IV Cardizem -Discontinue IV heparin and Continue anticoagulation with Eliquis -Case management consultation for Eliquis coverage. This patient is currently living in a skilled nursing in the medication will be covered. -If patient has further falls, recommend avoiding anticoagulation due to the risk of bleeding -Continue metoprolol to 12.5 mg twice a day -Continue amiodarone taper, instructions placed in patient's discharge instructions. -Patient is stable from a cardiology perspective. We will follow the patient as needed. Please reach out for further questions or concerns. -Recommend close follow up with Dr. Ramos in the office. Nurse practitioner note has been reviewed by physician. Signing provider agrees with the documented findings, assessment, and plan of care. Objective - Vital Signs Vital signs: Vital Signs Temp 97.4 F L 11/27/20 12:00 Pulse 71 11/27/20 12:00 Resp 19 11/27/20 12:00 BP 104/68 11/27/20 12:00 Pulse Ox 97 11/27/20 12:00 Intake & Output 11/26/20 11/27/20 11/27/20 18:59 06:59 18:59 Intake Total 600 15.66 48.5 Output Total 500 1700 650 Balance 100 -1684.34 -601.5 Weight 62.5 kg Intake: Intake, IV Titration 600 15.66 48.5 Amount Diltiazem 125 mg In 48.5 Sodium Chloride 0.9% 100 ml @ 5 MG/HR 5 mls/hr IV .Q24H [facility] Rx#:[id number] Heparin Sod,Pork in 0.45% 15.66 NaCl 25,000 unit In 0.45 % NaCl 1 250ml.bag @ 12 UNITS/KG/HR 8.1 mls/hr IV .Q24H [facility] Rx#:[id number] Sodium Chloride 0.9% 1, 600 000 ml @ 75 mls/hr IV . [id number] [facility] Rx#:[id number] Output: Urine 500 1700 650 Other: Voiding Method Indwelling Catheter Indwelling Catheter Indwelling Catheter - Labs CBC & Chem 7: 11/27/20 06:37 11/27/20 06:37 Labs: Abnormal Lab Results - Last 24 Hours (Table) 11/26/20 11/26/20 11/26/20 Range/Units 12:47 12:47 12:47 RBC 3.32 L (4.30-5.90) m/uL Hgb 9.7 L (13.0-17.5) gm/dL Hct 31.1 L (39.0-53.0) % MCHC (31.0-37.0) g/dL RDW 16.8 H (11.5-15.5) % Neutrophils # (1.3-7.7) k/uL PT (9.0-12.0) sec INR (<1.2) APTT (22.0-30.0) sec Sodium (137-145) mmol/L Chloride 120 H (98-107) mmol/L Carbon Dioxide 17 L (22-30) mmol/L BUN 32 H (9-20) mg/dL Creatinine 1.84 H (0.66-1.25) mg/dL Calcium 8.2 L (8.4-10.2) mg/dL Procalcitonin 0.17 H (0.02-0.09) ng/mL 11/27/20 11/27/20 11/27/20 Range/Units 00:08 00:08 06:37 RBC 3.59 L 3.57 L (4.30-5.90) m/uL Hgb 10.5 L 10.3 L (13.0-17.5) gm/dL Hct 33.8 L 33.4 L (39.0-53.0) % MCHC 30.9 L 30.9 L (31.0-37.0) g/dL RDW 16.8 H 16.8 H (11.5-15.5) % Neutrophils # 7.8 H 7.9 H (1.3-7.7) k/uL PT 12.5 H (9.0-12.0) sec INR 1.2 H (<1.2) APTT (22.0-30.0) sec Sodium (137-145) mmol/L Chloride (98-107) mmol/L Carbon Dioxide (22-30) mmol/L BUN (9-20) mg/dL Creatinine (0.66-1.25) mg/dL Calcium (8.4-10.2) mg/dL Procalcitonin (0.02-0.09) ng/mL 11/27/20 11/27/20 Range/Units 06:37 06:37 RBC (4.30-5.90) m/uL Hgb (13.0-17.5) gm/dL Hct (39.0-53.0) % MCHC (31.0-37.0) g/dL RDW (11.5-15.5) % Neutrophils # (1.3-7.7) k/uL PT 12.9 H (9.0-12.0) sec INR 1.2 H (<1.2) APTT 65.8 H (22.0-30.0) sec Sodium 146 H (137-145) mmol/L Chloride 119 H (98-107) mmol/L Carbon Dioxide 19 L (22-30) mmol/L BUN 35 H (9-20) mg/dL Creatinine 1.99 H (0.66-1.25) mg/dL Calcium (8.4-10.2) mg/dL Procalcitonin (0.02-0.09) ng/mL Microbiology - Last 24 Hours (Table) 11/24/20 20:11 Urine Culture - Preliminary Urine,Clean Catch Gram Neg Bacilli
--- NOTE | 2020-11-27 14:19 | P.PN ---
Subjective Progress Note Date: 11/27/20 Patient initially seen by Dr. Freeman Gibbs. Please refer to his note for details. Patient was apparently coming from [place] to [place], when he had developed altered mental status en-route. Initial computed tomography scan of the head showed pneumocephalus which now has resolved. Patient also developed atrial fibrillation with rapid ventricular rate. Patient started on anticoagulation. EEG revealed mild encephalopathy. Patient's altered mental status got worse. Patient also was diagnosed with UTI. Repeat computed tomography scan of head showed no pneumocephalus. No acute intracranial hemorrhage or midline shift. Patient also has history of lumbosacral spondylosis and cervical spinal spo ndylosis. Orthopedic surgery recommended conservative treatment. It was also reported that patient suffered from a fall 2 weeks ago at [facility]. Patient probably developed concussion. Patient denies headache. Telemetry monitoring showing sinus rhythm, with sinus bradycardia in the 60s. Patient is off Cardizem drip. For nursing report, he has been confused. He is getting IV antibiotics. Objective - Vital Signs Vital signs: Vital Signs Temp 98.0 F 11/27/20 07:51 Pulse 81 11/27/20 07:53 Resp 24 11/27/20 07:53 BP 119/66 11/27/20 07:51 Pulse Ox 97 11/27/20 07:51 Intake & Output 11/26/20 11/27/20 11/27/20 18:59 06:59 18:59 Intake Total 600 15.66 48.5 Output Total 500 1700 Balance 100 -1684.34 48.5 Weight 62.5 kg Intake: Intake, IV Titration 600 15.66 48.5 Amount Diltiazem 125 mg In 48.5 Sodium Chloride 0.9% 100 ml @ 5 MG/HR 5 mls/hr IV .Q24H [facility] Rx#:[id number] Heparin Sod,Pork in 0.45% 15.66 NaCl 25,000 unit In 0.45 % NaCl 1 250ml.bag @ 12 UNITS/KG/HR 8.1 mls/hr IV .Q24H [facility] Rx#:[id number] Sodium Chloride 0.9% 1, 600 000 ml @ 75 mls/hr IV . [id number] [facility] Rx#:[id number] Output: Urine 500 1700 Other: Voiding Method Indwelling Catheter Indwelling Catheter Indwelling Catheter - Exam Patient is awake, but has slow mentation. He is alert. Patient states that he is in [facility]. He could not tell the month and states the year is 2009. Patient face is symmetric. Pupils are round and reacting. Extraocular muscles are intact. Patient would not cooperate for visual field testing. Tongue protrudes to the midline. Hearing appears significantly decreased. Shoulder shrug normal. On muscle strength testing, patient ambulatory services representative is normal. Biceps is normal, triceps normal. Patient would not cooperate for deltoid testing. Patient wiggle his feet, but would not cooperate for testing of the lower extremities. Reflexes are 1 in the upper limbs, absent in the lower limbs. Plantars are flat. Patient did not cooperate for sensory or cerebellar functions. Patient argues for everything, asks "why". He would not have me check his lower extremities because of asks "why", or states "I did it", when he has not completed the task. - Labs CBC & Chem 7: 11/27/20 06:37 11/27/20 06:37 Labs: Abnormal Lab Results - Last 24 Hours (Table) 11/26/20 11/26/20 11/26/20 Range/Units 12:47 12:47 12:47 RBC 3.32 L (4.30-5.90) m/uL Hgb 9.7 L (13.0-17.5) gm/dL Hct 31.1 L (39.0-53.0) % MCHC (31.0-37.0) g/dL RDW 16.8 H (11.5-15.5) % Neutrophils # (1.3-7.7) k/uL PT (9.0-12.0) sec INR (<1.2) APTT (22.0-30.0) sec Sodium (137-145) mmol/L Chloride 120 H (98-107) mmol/L Carbon Dioxide 17 L (22-30) mmol/L BUN 32 H (9-20) mg/dL Creatinine 1.84 H (0.66-1.25) mg/dL Calcium 8.2 L (8.4-10.2) mg/dL Procalcitonin 0.17 H (0.02-0.09) ng/mL 11/27/20 11/27/20 11/27/20 Range/Units 00:08 00:08 06:37 RBC 3.59 L 3.57 L (4.30-5.90) m/uL Hgb 10.5 L 10.3 L (13.0-17.5) gm/dL Hct 33.8 L 33.4 L (39.0-53.0) % MCHC 30.9 L 30.9 L (31.0-37.0) g/dL RDW 16.8 H 16.8 H (11.5-15.5) % Neutrophils # 7.8 H 7.9 H (1.3-7.7) k/uL PT 12.5 H (9.0-12.0) sec INR 1.2 H (<1.2) APTT (22.0-30.0) sec Sodium (137-145) mmol/L Chloride (98-107) mmol/L Carbon Dioxide (22-30) mmol/L BUN (9-20) mg/dL Creatinine (0.66-1.25) mg/dL Calcium (8.4-10.2) mg/dL Procalcitonin (0.02-0.09) ng/mL 11/27/20 11/27/20 Range/Units 06:37 06:37 RBC (4.30-5.90) m/uL Hgb (13.0-17.5) gm/dL Hct (39.0-53.0) % MCHC (31.0-37.0) g/dL RDW (11.5-15.5) % Neutrophils # (1.3-7.7) k/uL PT 12.9 H (9.0-12.0) sec INR 1.2 H (<1.2) APTT 65.8 H (22.0-30.0) sec Sodium 146 H (137-145) mmol/L Chloride 119 H (98-107) mmol/L Carbon Dioxide 19 L (22-30) mmol/L BUN 35 H (9-20) mg/dL Creatinine 1.99 H (0.66-1.25) mg/dL Calcium (8.4-10.2) mg/dL Procalcitonin (0.02-0.09) ng/mL Microbiology - Last 24 Hours (Table) 10/16/21 20:11 Urine Culture - Preliminary Urine,Clean Catch Gram Neg Bacilli Assessment and Plan Assessment: Encephalopathy that is worsening likely due to underlying acute UTI and component of metabolic encephalopathy. Pneumocephalus of unknown exact etiology (unknown duration). Had fall about fall 2 weeks ago and possible cause but not definitive.---Pneumocephalus resolved on repeat images History of falls Cervical spondylosis (mild to moderate over left C3-C4 and moderate over C5-C6) Lumbosacral spondylosis (with mild compression fracture over L1-L2 L3-L4 on CT) Bilateral lower extremity paresis with spasticity. 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 Continue Ventimask with oxygen saturation more than 95% for now (he keeps on taking his oxygen off since he is altered). Continue folic acid 1mg daily since he has low normal. Continue baclofen 5 mg 1 tablet twice a day. Orthopedic team is consulted and recommend conservative management. Cardiology is consulted regarding the patient atrial fibrillation. He is currently on Eliquis 5mg 1 tab bid (I spoke with Dr. Ramos and notified him that he was clear for use of anticoagulation (since pneumocephalus cleared and the benefits outweigh the risks. Dr. Ramos notified me that he place him on anticoagulation for 21 day then stop. I will defer the duration of anticoagulation to cardiology team. If patient has any further falls recommend of avoiding anticoagulation since risk of bleed. If anticoagulation is stopped then recommend ASA 81mg daily. Continue Lipitor 20mg qhs for secondary stroke prophylaxis. We'll defer the rest of the medical management to the primary team. On discharge the patient needs to follow-up with a neurologist as well neurosurgeon within 1-2 weeks. WORK-UP: * Creatinine is 2.09 and it's trending down currently is 1.76. * Calcium is 8.7, magnesium is 2.1. * AST of 33 and ALT is 22 * Ammonia level is less than 9 * TSH is 2.530 * Vitamin B12: 639 * Serum Folate: 6.9 * Cordero virus PCR was not detected * Urinalysis is suggestive of urinary tract infection. * CT of the head is reported as pneumocephalus of uncertain etiology. Trauma was favored given the distribution including extracranial registered diet technician space, intradural suprasellar cistern region, right carotid siphon on region and suspected extradural upper spinal canal. Atrophy with chronic-appearing white matter changes. I personally spoke with the reading radiologist regarding the findings and reviewed images. * Repeat CT of the head is reported as resolution of previous pneumocephalus. Atrophy with periventricular white matter ischemic type changes. Some limitation due to motion artifact. * CT of cervical spine was reported as no acute osseous abnormality. Diffuse degenerative disc changes. It is reported as mild to moderate over C3-C4 on the left and moderate over C5-C6 bilaterally. * Facial x-ray is reported as no evidence for facial bone fracture. * CT cervical spine and the thoracic spine is reported as what's deformity noted at T6, T7, L1 and mildly along the anterior/superior endplate of L4. These are indeterminate age. Suspicious change to sit suggest acute change are not identified however. Degenerative disks changes in the low thoracic spine and lower lumbar spine discussed above. Mild anterior thecal sac compression due to endplate changes at L3 and L4. Correlate for fecal impaction at the rectum. Acute suspicion osseous change are not evident. * MRI the brain is reported as suboptimal study with moderate diffuse cerebral atrophy and chronic small vessel ischemic change along with old left appear parietal lobe posterior watershed infarct R redemonstrated. No MRI evidence for recent infarct. Pneumocephalus suspected clinically is better evaluated on a CT versus MRI. * Routine EEG on 11/23/2020 is abnormal. The background slowing suggestive of mild encephalopathy. There are no focal slowing, epileptiform discharges or seizure on the EEG.
--- NOTE | 2020-11-27 16:21 | CT ---
EXAMINATION TYPE: CT facial bones wo con DATE OF EXAM: 11/27/2020 COMPARISON: CT brain 11/25/2020, 02/10/2012 HISTORY: Fall with abnormal brain images. Bruising to left infraorbital region. CT DLP: 841.5 mGycm Automated exposure control for dose reduction was used. TECHNIQUE: CT scan of the sinuses is performed without contrast, axial images are obtained, coronal r eformatted images are also reviewed. FINDINGS: The paranasal sinuses including the frontal, ethmoid, sphenoid, and maxillary sinuses bila terally are well-aerated without abnormal opacification. The ostiomeatal complex is patent bilateral ly on the coronal images. There is ecchymosis anterior to the maxillary bones bilaterally. Visualized portion of mastoid air cells show no abnormal opacification. Cerumen present in the reinforcing steel worker wire mesh al auditory canals bilaterally The globes are intact bilaterally. IMPRESSION: The sinuses are clear and the ostiomeatal complex is patent bilaterally. No evident fract ure.
--- NOTE | 2020-11-27 20:49 | CDI ---
Documentation Clarification Form Date: 11/27/2020 08:38:30 PM From: Dorothea Padilla RN, CCDS Admit Date: 11/22/2020 09:31:00 AM Patient Name: Kris Jackson Visit Number: [id number] ATTENTION: The Clinical Documentation Specialists (CDI) and [facility] Coding Staff appreciate your assistance in clarifying documentation. Please respond to the clarification below the line at the bottom and electronically sign. The CDI & [facility] Coding staff will review the response and follow-up if needed. Please note: Queries are made part of the Legal Health Record. If you have any questions, please contact the author of this message via ITS. Dr. Danni Pryor UTI is documented beginning 11/25 and patient has a Junior catheter inserted on 11/22. Additional clarification regarding the etiology of the UTI is requested. History/Risk Factors: Asthma, COPD, Falls, UTI's with increased confusion Clinical Indicators: 11/24 Urinalysis: +1 Protein, trace blood, Large Leukocyte Esterase, 6 RBC, >182 WBC, many WBC Clumps, Occasional Bacteria, Rare Mucus 11/24 Urine culture: Morganella morganii 11/25 Neurology Progress Note: "Encephalopathy that is worsening likely due to underlying acute UTI and component of metabolic encephalopathy." 11/22-11/27 Lab results: WBC 12.7/10.6/8.8/8.6/9.9, BUN 50/43/36/32/35, Creatinine 2.09/1.76/1.84/1.99 Treatment: 11/18-Current Ceftriaxone 1Gm IVPB Q 24 hrs. Please clarify the etiology of the UTI, if known: [ ] UTI related Junior catheter not POA [ ] UTI related Junior catheter POA [ ] UTI not related to catheter [ ] Other condition, please specify [ ] Unable to determine (Template Last Revised: April 2020) Unable to determine MTDD
[2020-11-27] MEDS: ATORVASTATIN 20 MG TAB PO SCH (20:55)
--- NOTE | 2020-11-28 08:02 | P.PN ---
Progress Note - Text Progress Note Date: 11/28/20 [facility] Progress Note SUBJECTIVE: Patient seen and examined resting comfortably no issues overnight. Denies any pain at this time OBJECTIVE: General: AOX2-3, NAD Vital signs stable Motor Exam: RUE: 4/5 SA, EF, EE, WF, WE, Intrinsic, Primer Supervisor LUE: 4/5 SA, EF, EE, WF, WE, Intrinsic, Primer Supervisor RLE: 4/5 HF, KE, KF, DF, PF, EHL, FHL LLE: 4/5 HF, KE, KF, DF, PF, EHL, FH Reflexes: 2/4 in UE and LE b/l SILT C5-T1 and L2-S1 Dermatomal deficit: None +distal pulses palpable Negative hoffmans b/l Negative babinski b/l No clonus Meds and labs reviewed ASSESSMENT: 70-year-old male with multiple medical comorbidities malnourishment complex medical patient No orthopedic injuries currently PLAN: 1. No orthopedic surgical intervention 2. Medical management 3. PT/OT, OK for up and about. 4. TEDs, SCDs, Early ambulation
[2020-11-28] MEDS: PANTOPRAZOLE 40 MG/10 ML VIAL IV SCH (11:49)
[2020-11-28] MEDS: APIXABAN 5 MG TAB PO SCH ×2 (11:49→21:20)
[2020-11-28] MEDS: METOPROLOL TARTRATE 12.5 MG TAB PO SCH ×2 (11:49→21:19)
[2020-11-28] MEDS: FOLIC ACID 1 MG TAB PO SCH (11:50)
[2020-11-28] MEDS: AMIODARONE 200 MG TAB PO SCH ×2 (11:50→21:20)
[2020-11-28] MEDS: BACLOFEN 10 MG TAB PO SCH ×2 (11:50→21:19)
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
--- NOTE | 2020-11-28 15:21 | P.PN ---
Subjective Progress Note Date: 11/28/20 11/30/2020: Patient is laying comfortably in the bed. Patient is much more alert and awake and cooperative. Patient offers no complaints. 11/27/2020: Patient initially seen by Dr. Freeman Gibbs. Please refer to his note for details. Patient was apparently coming from [place] to [place], when he had developed altered mental status en-route. Initial computed tomography scan of the head showed pneumocephalus which now has resolved. Patient also developed atrial fibrillation with rapid ventricular ra te. Patient started on anticoagulation. EEG revealed mild encephalopathy. Patient's altered mental status got worse. Patient also was diagnosed with UTI. Repeat computed tomography scan of head showed no pneumocephalus. No acute intracranial hemorrhage or midline shift. Patient also has history of lumbosacral spondylosis and cervical spinal spondylosis. Orthopedic surgery recommended conservative treatment. It was also reported that patient suffered from a fall 2 weeks ago at [facility]. Patient probably developed concussion. Patient denies headache. Telemetry monitoring showing sinus rhythm, with sinus bradycardia in the 60s. Patient is off Cardizem drip. For nursing report, he has been confused. He is getting IV antibiotics. Objective - Vital Signs Vital signs: Vital Signs Temp 98.0 F 11/28/20 04:00 Pulse 69 11/28/20 12:00 Resp 18 11/28/20 12:00 BP 121/76 11/28/20 12:00 Pulse Ox 94 L 11/28/20 12:00 Intake & Output 11/27/20 11/28/20 11/28/20 18:59 06:59 18:59 Intake Total 48.5 236 238 Output Total 1999 Balance -1951.5 -64 238 Weight 62.5 kg 60 kg Intake: Intake, IV Titration 48.5 Amount Diltiazem 125 mg In 48.5 Sodium Chloride 0.9% 100 ml @ 5 MG/HR 5 mls/hr IV .Q24H [facility] Rx#:[id number] Oral 236 238 Output: Urine 1999 Other: Voiding Method Indwelling Catheter Indwelling Catheter Indwelling Catheter # Bowel Movements 1 0 - Exam Patient is awake, alert, much more responsive and cooperative as compared to yesterday. Patient was not argumentative today. Patient knows his name, and his age 70. Patient is aware that he is in [facility] in [place]. Patient states it is March or April 2020. He states that current president is Paula, but when I said it was someone else, then patient did state was Kana. Patient's speech and language functions are normal. Cranial nerves significant for decreased hearing. Face is symmetric. Visual griffin difficult to assess. On muscle strength testing the strength is normal in the upper extremities in the deltoid, biceps, triceps in the public safety director. In the lower limbs hip flexion is 3-4 bilaterally. Ankle dorsiflexion patient wiggle very well bilaterally. Reflexes are 1+ to 2 in the upper extremities, 1+ at the knees. Plantars are flat. - Labs CBC & Chem 7: 11/27/20 06:37 11/27/20 06:37 Labs: Microbiology - Last 24 Hours (Table) 11/24/20 20:11 Urine Culture - Final Urine,Clean Catch Morganella morganii Assessment and Plan Assessment: Encephalopathy probably due to acute UTI, much improved. Pneumocephalus of unknown exact etiology (unknown duration). Had fall about fall 2 weeks ago and possible cause but not definitive.---Pneumocephalus resolved on repeat images. No evidence of facial bone fracture. History of falls Cervical spondylosis (mild to moderate over left C3-C4 and moderate over C5-C6) Lumbosacral spondylosis (with mild compression fracture over L1-L2 L3-L4 on CT) Bilateral lower extremity paresis with spasticity. 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 Patient's mentation has much improved. He is fairly well oriented. Examination is stable. Continue folic acid 1mg daily since he has low normal. Continue baclofen 5 mg 1 tablet twice a day. Orthopedic team is consulted and recommend conservative management. Cardiology is consulted regarding the patient atrial fibrillation. He is currently on Eliquis 5mg 1 tab bid Continue Lipitor 20mg qhs for secondary stroke prophylaxis. We'll defer the rest of the medical management to the primary team. On discharge the patient needs to follow-up with a neurologist as well neurosurgeon within 1-2 weeks. Awaiting transfer to [facility], when insurance authorizes. Neurologically clear. WORK-UP: * Ammonia level is less than 9 * TSH is 2.530 * Vitamin B12: 639 * Serum Folate: 6.9 * Cordero virus PCR was not detected * Urinalysis is suggestive of urinary tract infection. * CT of the head is reported as pneumocephalus of uncertain etiology. Trauma was favored given the distribution including extracranial computational biologist space, intradural suprasellar cistern region, right carotid siphon on region and suspected extradural upper spinal canal. Atrophy with chronic-appearing white matter changes. I personally spoke with the reading radiologist regarding the findings and reviewed images. * Repeat CT of the head is reported as resolution of previous pneumocephalus. Atrophy with periventricular white matter ischemic type changes. Some murcia itation due to motion artifact. * CT of cervical spine was reported as no acute osseous abnormality. Diffuse degenerative disc changes. It is reported as mild to moderate over C3-C4 on the left and moderate over C5-C6 bilaterally. * Facial x-ray is reported as no evidence for facial bone fracture. * CT cervical spine and the thoracic spine is reported as what's deformity noted at T6, T7, L1 and mildly along the anterior/superior endplate of L4. These are indeterminate age. Suspicious change to sit suggest acute change are not identified however. Degenerative disks changes in the low thoracic spine and lower lumbar spine discussed above. Mild anterior thecal sac compression due to endplate changes at L3 and L4. Correlate for fecal impaction at the rectum. Acute suspicion osseous change are not evident. * MRI the brain is reported as suboptimal study with moderate diffuse cerebral atrophy and chronic small vessel ischemic change along with old left appear parietal lobe posterior watershed infarct R redemonstrated. No MRI evidence for recent infarct. Pneumocephalus suspected clinically is better evaluated on a CT versus MRI. * Routine EEG on 11/23/2020 is abnormal. The background slowing suggestive of mild encephalopathy. There are no focal slowing, epileptiform discharges or seizure on the EEG.
[2020-11-28] MEDS: MEROPENEM 1 GM in SODIUM CHLORIDE 0.9% 100 ML IVPB SCH ×2 (18:27→23:21)
[2020-11-28 18:43] LABS: Appearance,Urine Clear (Clear); Bacteria,Urine Rare /hpf; Bilirubin,Urine Negative (Negative); Blood,Urine Trace (Negative); Color,Urine Yellow; Glucose,Urine (UA) Negative (Negative); Hyaline Casts,Urine 1 /lpf (0-2); Ketones,Urine Negative (Negative); Leukocyte Esterase,Urine Large (Negative); Mucus,Urine Rare /hpf; Nitrite,Urine Negative (Negative); Protein,Urine Trace (Negative); RBC,Urine 7 /hpf (0-5); Specific Gravity,Urine 1.021 (1.001-1.035); Urobilinogen,Urine <2.0 mg/dL (<2.0); WBC,Urine 35 /hpf (0-5)
--- NOTE | 2020-11-28 20:18 | CONS ---
CONSULTATION REASON FOR CONSULT: Renal failure. HISTORY OF PRESENT ILLNESS: Patient is a 70-year-old male admitted to the hospital initially on 11/22/2020 with altered mental status. Patient has underlying history of asthma, COPD, CVA/TIA, osteoarthritis. His serum creatinine was 2.0 on initial admission. It is now at 1.8 to 1.9 mg/dL. Review of previous labs shows a serum creatinine of 0.96 on 09/18/2016. Patient states that he does follow up in the office for CKD. Blood pressure had been low, with systolic in the 90s on 11/24/2020. Patient is currently not maintained on RONNY inhibitors or NSAIDs. He has not received any IV contrast. Patient has an indwelling Junior catheter with urine output at about 2.3 L for 24 hours. His urine culture did grow Morganella morganii. Patient also had atrial fibrillation with RVR and was maintained on Cardizem drip, which is now discontinued. He has received Lasix on and off for volume overload. Patient was initially hydrated. PAST MEDICAL HISTORY: Significant for COPD, CVA, TIA, osteoarthritis, asthma. PAST SURGICAL HISTORY: Testicular surgery, surgery, left knee arthroplasty. SOCIAL HISTORY: Positive for marijuana use. MEDICATIONS: Medications prior to admission included aspirin and Neurontin. ALLERGIES: NONE. PHYSICAL EXAMINATION: Patient is currently comfortable. He is awake, not in any acute distress. Blood pressure this morning was 116/73, heart rate of 69 per minute. He is afebrile. EXAMINATION OF THE HEART: S1 and S2. EXAMINATION OF LUNGS: Bilateral breath sounds are heard. Abdomen is soft. Examination of lower extremities shows edema trace. BUILD AND DEPLOYMENT ENGINEER EXAM: Grossly intact. LABS: Sodium of 146, potassium 3.9, chloride 119. CO2 is 19, BUN 35, creatinine 1.9, hemoglobin 10.3 g/dL. UA shows WBCs more than 182, trace blood, 1+ protein. Hemoglobin has been 9.7 to 10.5 g/dL. ASSESSMENT: 1. Acute kidney injury, acute tubular necrosis, currently nonoliguric, currently with indwelling Junior catheter. Blood pressure was on the lower side. Therefore there is component of ischemic ATN. No nephrotoxic agents on board. Continue current dose of Lopressor for atrial fibrillation with RVR. Check ultrasound of the kidneys. UA shows 1+ protein. However, there are significant WBCs suggestive of underlying UTI. 2. Lactic acidosis on initial admission. 3. History of cerebrovascular accident/transient ischemic attack. No residual deficit. 4. History of marijuana use. 5. Atrial fibrillation with rapid ventricular response, status post cardioversion in the ER, maintained on amiodarone. PLAN: Check ultrasound of the kidneys. Continue to avoid nephrotoxic agents. Blood pressure remains on the lower side. Repeat labs in a.m. MMODL / IJN: [id number] /
[2020-11-28] MEDS: ATORVASTATIN 20 MG TAB PO SCH (21:20)
--- NOTE | 2020-11-28 22:25 | P.CONS ---
History of Present Illness - Reason for Consult Consult date: 11/28/20 MDR UTI Requesting physician: Danni Pryor - Chief Complaint mental status changes x few days - History of Present Illness History of present illness : Patient is 70-year-old male presenting to the hospital about a week ago for evaluation of mental status changes and shortness of breath and this patient who was recently brought from [place] by the granddaughter, patient was noted to have some confusion and making some bizarre statement patient currently has been evaluated by multiple consultants including cardiology and neurology services patient did not have any fever during this admission and the patient did have mild elevated white count on admission to this and subsequent normalized patient did have a positive UA collected on the with large leukocyte esterase more than 22 WBC and urine culture has been finalized with the multidrug-resistant Morganella more than 100,000 colonies patient was started on meropenem infectious disease was consu lted for further management of antibiotic therapy patient overall is not a very good historian so most information has been extracted from review the chart of the nursing staff patient is currently breathing comfortably had no specific denies having any chest pain shortness of breath or cough no nausea vomiting no abdominal pain no diarrhea Review of system: CONSTITUTIONAL: Positive for weakness denies fever. EYES: No complaint. ENT: No complaint. RESPIRATORY as per history of present illness. CARDIOVASCULAR: No complaint. GENITOURINARY: As per history of present illness GASTROINTESTINAL: No complaint. MUSCULOSKELETAL: No complaint. INTEGUMENTARY: No complaint. PSYCHOLOGIC: No complaint. ENDOCRINE: No complaint. NEUROLOGIC as per history of present illness. Past medical history : Reviewed, documented below Past surgical history : Reviewed, documented below Social history: Reviewed, documented below Medications: Reviewed, as documented below EXAMINATION: Vital sigans= Reviewed and documented below GENERAL DESCRIPTION: Elderly male lying in bed, no distress. No tachypnea or accessory muscle of respiration use. HEENT: Shows Pallor , no scleral icterus. Oral mucous membrane is dry. NECK: Trachea central, no thyromegaly. LUNGS: Unlabored breathing. Clear to auscultation anteriorly. No wheeze or crackle. HEART: S1, S2, regular rate and rhythm. ABDOMEN: Soft, no tenderness , guarding or rigidity EXTREMITIES: No edema of feet. SKIN: No rash, no masses palpable. NEUROLOGICAL: The patient is awake, alert, oriented x2, mood and affect normal. LABS AND RADIOLOGY: Reviewed results see below Assessment : Patient presented to hospital with shortness of breath and mental status injury which is likely multifactorial in this patient did have mild elevated white count on admission did have positive UA now with urine culture positive for multidrug-resistant Morganella concerning for asymptomatic urinary tract infection Plan: 1-we will repeat a urine culture straight cath if needed 2-continue the patient on meropenem 1 g every 8 hour 3-gentle IV fluid We will follow on clinical condition and cultures to further adjust medication if needed Thank you for this consultation we will follow the patient along with you Past Medical History Past Medical History: Asthma, COPD, CVA/TIA, Osteoarthritis (OA) Additional Past Medical History / Comment(s): hip fx History of Any Multi-Drug Resistant Organisms: None Reported Past Surgical History: Joint Replacement Additional Past Surgical History / Comment(s): facial surgery, testicular surgery, knee left Past Anesthesia/Blood Transfusion Reactions: No Reported Reaction, Motion Sickness Past Psychological History: No Psychological Hx Reported Smoking Status: Unknown if ever smoked Past Alcohol Use History: Rare Past Drug Use History: Marijuana - Past Family History Father Family Medical History: Cancer Additional Family Medical History / Comment(s): colon CA Mother Family Medical History: CVA/TIA Additional Family Medical History / Comment(s): Fall with subdural hematoma Brother(s) Additional Family Medical History / Comment(s): committed suicide Medications and Allergies Home Medications Medication Instructions Recorded Confirmed Type Gabapentin [Neurontin] 300 mg PO W/BRKFST 11/22/20 11/22/20 History Apixaban [Eliquis] 5 mg PO BID #60 tab 11/25/20 Rx Allergies Allergy/AdvReac Type Severity Reaction Status Date / Time No Known Allergies Allergy Verified 11/22/20 07:59 Physical Exam Vitals: Vital Signs Temp Pulse Resp BP Pulse Ox 11/28/20 12:00 69 18 121/76 94 L 11/28/20 08:00 75 18 116/73 94 L 11/28/20 04:00 98.0 F 80 18 120/74 96 11/28/20 02:00 92 17 11/28/20 00:00 97.8 F 92 17 101/63 96 11/27/20 20:00 97.7 F 84 17 98/63 95 11/27/20 15:42 97.9 F 76 18 110/71 94 L Intake and Output 11/28/20 11/28/20 11/28/20 06:59 14:59 22:59 Intake Total 238 Output Total 300 Balance -300 238 Intake: Oral 238 Output: Urine 300 Other: Voiding Method Indwelling Catheter Indwelling Catheter # Bowel Movements 1 0 Weight 60 kg Results CBC & Chem 7: 11/27/20 06:37 11/27/20 06:37 Labs: Microbiology - Last 24 Hours (Table) 11/24/20 20:11 Urine Culture - Final Urine,Clean Catch Morganella morganii
--- NOTE | 2020-11-28 23:00 | US ---
EXAMINATION TYPE: US kidneys/renal and bladder DATE OF EXAM: 11/28/2020 COMPARISON: NONE CLINICAL HISTORY: rf. RF per order. EXAM MEASUREMENTS: Right Kidney: 10.2 x 6.4 x 4.9 cm Left Kidney: 6.6 x 3.2 x 3.5 cm Right Kidney: Complex area seen upper pole: 2.1 x 1.6 x 1.9 cm. Hyperechoic focus seen: 0.6 x 0.6 x 0 .3 cm. Renal pelvis appears slightly dilated. Left Kidney: Appears small in size. Very limited visibility. Bladder: Catheter in place. Not distended, unable to evaluate. Wall appears thick. Bilateral Jets seen: No Incidental finding- probable right pleural effusion seen in images. IMPRESSION: There is complex cyst in the upper pole of the right kidney measuring 2 cm. No definite renal obstruc tion. Left renal atrophy. There is increased echogenicity in the urinary bladder that could relate to blood clot or debris.
[2020-11-29] MEDS: METOPROLOL TARTRATE 12.5 MG TAB PO SCH ×2 (10:09→19:52)
[2020-11-29] MEDS: APIXABAN 5 MG TAB PO SCH ×2 (10:09→19:52)
[2020-11-29] MEDS: BACLOFEN 10 MG TAB PO SCH ×2 (10:09→19:52)
[2020-11-29] MEDS: FOLIC ACID 1 MG TAB PO SCH (10:10)
[2020-11-29] MEDS: ACETAMINOPHEN TAB 325 MG TAB PO PRN (10:10)
[2020-11-29] MEDS: AMIODARONE 200 MG TAB PO SCH ×2 (10:10→19:52)
[2020-11-29] MEDS: PANTOPRAZOLE 40 MG/10 ML VIAL IV SCH (10:11)
[2020-11-29] MEDS: MEROPENEM 1 GM in SODIUM CHLORIDE 0.9% 100 ML IVPB SCH ×2 (10:11→17:41)
[2020-11-29] MEDS: MIDODRINE 5 MG TAB PO SCH ×2 (10:14→17:41)
[2020-11-29] MEDS ORDERED: SODIUM CHLORIDE 0.9% 1,000 ML IV SCH (11:15)
[2020-11-29 11:32] VITALS: BMI 17.9
[2020-11-29] MEDS: SODIUM CHLORIDE 0.45% 1,000 ML IV SCH (12:30)
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
--- NOTE | 2020-11-29 13:17 | PN ---
PROGRESS NOTE Patient is seen for followup for acute kidney injury. Patient's serum creatinine was 2.0 on admission, it improved to 1.7 to 1.8 and staying at 1.9 today. He is currently off of IV fluids. He does not appear that his oral intake is the best. Patient was also hypotensive and started on midodrine. He is voiding. He has an indwelling Junior catheter. PHYSICAL EXAMINATION: On examination today, blood pressure 106/55, heart rate 69 per minute. he is afebrile. Examination of the heart S1, S2. Examination of the lungs, bilateral breath sounds are heard. Abdomen is soft, nontender. Examination lower extremities shows no evidence of edema. CELL RELINER exam is grossly intact. Patient's feet are wrapped. LAB: Show sodium 146, potassium 3.9, BUN 35, creatinine 1.9. These are the labs from November 27, no labs available on November 28 or November 29. ASSESSMENT: 1. Acute kidney injury, appears to be prerenal with a component of acute tubular necrosis. The patient has an indwelling Junior catheter which is chronic. I will add IV fluids and repeat labs today. Previous creatinine was 0.9 mg/dL on 09/18/2016. We do not have any labs in between. 2. Mild hypernatremia associated with free water deficit. 3. Atrial fibrillation with RVR, status post cardioversion in the ER, maintained on amiodarone. 4. History of marijuana use. 5. History of CVA/TIA with no residual deficit. 6. Lactic acidosis on initial admission.\. 7. Urinary tract infection with urine culture growing Morganella morganii, maintained on antibiotics. PLAN: Check labs today. Add IV fluids. If sodium remains high, I will change to half-normal saline. Encourage increased oral intake. MMODL / IJN: [id number] /
[2020-11-29 13:27] LABS: Potassium 3.6 mmol/L (3.5-5.1)
[2020-11-29 13:36] LABS: Anisocytosis Slight; Basophils % (A) 0 %; Eosinophils # (A) 0.4 k/uL (0-0.7); Eosinophils % (A) 5 %; HCT 33.7 % (39.0-53.0); HGB 10.7 gm/dL (13.0-17.5); Hypochromasia Slight; Lymphocytes # (A) 1.2 k/uL (1.0-4.8); Lymphocytes % (A) 14 %; MCH 28.9 pg (25.0-35.0); MCHC 31.6 g/dL (31.0-37.0); MCV 91.4 fL (80.0-100.0); Mean Platelet Volume 7.5; Monocytes # (A) 0.4 k/uL (0-1.0); Monocytes % (A) 4 %; Neutrophils # (A) 6.5 k/uL (1.3-7.7); Neutrophils % (A) 74 %; Platelet Count 434 k/uL (150-450); RBC 3.69 m/uL (4.30-5.90); RDW 17.4 % (11.5-15.5); WBC 8.7 k/uL (3.8-10.6)
--- NOTE | 2020-11-29 18:28 | PN ---
PROGRESS NOTE DATE OF SERVICE: 11/29/2020. REASON FOR FOLLOWUP: Urinary tract infection. INTERVAL HISTORY: The patient is afebrile. The patient is currently sleepy, lethargic, unable to provide any history. No vomiting, diarrhea or any change reported by the nursing staff. PHYSICAL EXAMINATION: Blood pressure 99/59 with a pulse of 62, temperature 97.8. He is 94% on room air. General description is an elderly male lying in bed in no distress. Respiratory system: Unlabored breathing, clear to auscultation anteriorly. Heart S1, S2. Regular rate and rhythm. Abdomen soft, no tenderness. Extremities: No edema of the feet. LABS: Hemoglobin is 10.1, white count 8.7. Creatinine is 1.90. Repeat urine is positive. IMPRESSION/PLAN: Patient with ( ) Morganella urine cultures for the patient currently covered with meropenem to continue while waiting for the repeat urine to finalize. Will monitor clinical course closely. MMDEAL / IJN: [id number] /
[2020-11-29] MEDS: ATORVASTATIN 20 MG TAB PO SCH (19:52)
[2020-11-30] MEDS: MEROPENEM 1 GM in SODIUM CHLORIDE 0.9% 100 ML IVPB SCH ×3 (00:08→18:10)
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
[2020-11-30] MEDS: SODIUM CHLORIDE 0.45% 1,000 ML IV SCH ×2 (01:48→17:02)
[2020-11-30] MEDS: MIDODRINE 5 MG TAB PO SCH ×2 (06:24→18:10)
[2020-11-30 07:16] LABS: Anisocytosis Slight; Basophils % (A) 0 %; Eosinophils # (A) 0.5 k/uL (0-0.7); Eosinophils % (A) 7 %; HCT 32.3 % (39.0-53.0); Hypochromasia Slight; Lymphocytes # (A) 0.8 k/uL (1.0-4.8); Lymphocytes % (A) 12 %; MCH 28.7 pg (25.0-35.0); MCV 92.5 fL (80.0-100.0); Mean Platelet Volume 7.3; Monocytes # (A) 0.3 k/uL (0-1.0); Monocytes % (A) 5 %; Neutrophils # (A) 5.2 k/uL (1.3-7.7); Neutrophils % (A) 73 %; Platelet Count 393 k/uL (150-450); RDW 16.9 % (11.5-15.5); WBC 7.1 k/uL (3.8-10.6)
[2020-11-30 07:34] LABS: Potassium 3.9 mmol/L (3.5-5.1)
[2020-11-30 08:03] LABS: C Reactive Protein 5.4 mg/dL (<1.0)
[2020-11-30] MEDS: APIXABAN 5 MG TAB PO SCH ×2 (09:30→21:48)
[2020-11-30] MEDS: METOPROLOL TARTRATE 12.5 MG TAB PO SCH ×2 (09:30→21:48)
[2020-11-30] MEDS: AMIODARONE 200 MG TAB PO SCH ×2 (09:30→21:48)
[2020-11-30] MEDS: FOLIC ACID 1 MG TAB PO SCH (09:31)
[2020-11-30] MEDS: PANTOPRAZOLE 40 MG/10 ML VIAL IV SCH (09:31)
[2020-11-30] MEDS: BACLOFEN 10 MG TAB PO SCH ×2 (09:31→21:48)
--- NOTE | 2020-11-30 18:23 | PN ---
PROGRESS NOTE DATE OF SERVICE: 11/30/2020 REASON FOR FOLLOWUP: Urinary tract infection. INTERVAL HISTORY: The patient is afebrile. The patient is breathing comfortably. He is more awake and alert today. No chest pain or cough. No abdominal pain, no diarrhea. PHYSICAL EXAMINATION: Blood pressure 116/70 with a pulse of 70, temperature is 97.5. He is 95% on room air. General description is an elderly male lying in bed in no distress. Respiratory system: Unlabored breathing, clear to auscultation anteriorly. Abdomen soft, no tenderness. Extremities: No edema of the feet. LABS: Hemoglobin is 10.3, white count 6.1, creatinine 2.06. IMPRESSION AND PLAN: Patient with ( ) Morganella in the urine and symptomatic, currently covered with meropenem to continue while waiting for the repeat culture to finalize. Continue supportive care. MMODL / MERN: [id number] /
[2020-11-30 20:10] LABS: Glucose,Whole Blood 102 mg/dL (75-99)
--- NOTE | 2020-11-30 20:14 | PN ---
PROGRESS NOTE Patient is seen for followup for acute kidney injury, mostly ATN, nonoliguric, associated with hypotension, as blood pressure was low. Patient also had atrial fibrillation with RVR. Ultrasound shows a small left kidney of about 6.6 cm. No hydronephrosis seen. UA shows 1+ protein. However, there are significant WBCs suggestive of UTI. Patient was started on IV fluids yesterday since he has not been eating much. On examination today, blood pressure was 116/70, heart rate 78 per minute. He is afebrile. EXAMINATION OF THE HEART: S1 and S2. EXAMINATION OF LUNGS: Decreased breath sounds at the bases. Upper airway transmitted sounds are heard. Abdomen is soft, non-tender. Examination of lower extremities shows no edema. Both extremities are wrapped. BAKER DOUGHNUT EXAM: Grossly intact. Labs show hemoglobin 10.0, sodium 140, potassium 3.9, chloride 114. CO2 is 20, BUN 34, creatinine 2.06. ASSESSMENT: 1. Acute kidney injury, ischemic acute tubular necrosis, nonoliguric, currently with indwelling Junior catheter; 24-hour output at about 1100 mL. Started on IV fluids yesterday. Patient is encouraged to increase oral intake. Check chest x-ray in a.m. and can discontinue IV fluids if there is evidence of pulmonary vascular congestion, although clinically patient does not appear to be significantly volume- overloaded. 2. Urinary tract infection with urine culture growing Morganella morganii, maintained on Meropenem. 3. Chronic atrial fibrillation, maintained on amiodarone and Eliquis. 4. History of cerebrovascular accident/transient ischemic attack with no residual deficit. 5. Mild hypernatremia associated with free water deficit, maintained on half-normal saline and improved. PLAN: Continue with half-normal saline. Check chest x-ray in a.m. Encourage increased oral intake. Avoid hypotension. Continue with the midodrine for now. MMODL / IJN: [id number] /
[2020-11-30] MEDS: ATORVASTATIN 20 MG TAB PO SCH (21:48)
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
[2020-12-01] MEDS: MEROPENEM 1 GM in SODIUM CHLORIDE 0.9% 100 ML IVPB SCH ×4 (00:02→23:22)
[2020-12-01] MEDS: SODIUM CHLORIDE 0.45% 1,000 ML IV SCH (05:22)
[2020-12-01 06:08] LABS: Glucose,Whole Blood 109 mg/dL (75-99)
[2020-12-01] MEDS: MIDODRINE 5 MG TAB PO SCH ×2 (06:22→17:49)
--- NOTE | 2020-12-01 07:29 | XR ---
EXAMINATION TYPE: XR chest 1V DATE OF EXAM: 12/01/2020 HISTORY: Shortness of breath. COMPARISON: 11/26/2020 TECHNIQUE: Single view of the chest is submitted. FINDINGS: Demonstrated are scattered senescent parenchymal change. Basilar patchy density and small effusions much improved from prior study. The heart is stable. Hilar and mediastinal structures are within normal limits. Degenerative changes are seen of the dorsal spine. IMPRESSION: 1. Basilar patchy density and small effusions much improved from prior study.
--- NOTE | 2020-12-01 08:32 | P.PN ---
Subjective Progress Note Date: 11/30/20 11/30/2020: patient is laying comfortably in the bed. Patient denies headache. Patient was able to cooperate with the examination as below. Offers no complaints. 11/28/2020: Patient is laying comfortably in the bed. Patient is much more alert and awake and cooperative. Patient offers no complaints. 11/27/2020: Patient initially seen by Dr. Freeman Gibbs. Please refer to his note for details. Patient was apparently coming from [place] to [place], when he had developed altered mental status en-route. Initial computed tomography scan of the head showed pneumocephalus which now has resolved. Patient also developed atrial fibrillation with rapid ventricular rate. Patient started on anticoagulation. EEG revealed mild encephalopathy. Patient's altered mental status got worse. Patient also was diagnosed with UTI. Repeat computed tomography scan of head showed no pneumocephalus. No acute in tracranial hemorrhage or midline shift. Patient also has history of lumbosacral spondylosis and cervical spinal spondylosis. Orthopedic surgery recommended conservative treatment. It was also reported that patient suffered from a fall 2 weeks ago at [facility]. Patient probably developed concussion. Patient denies headache. Telemetry monitoring showing sinus rhythm, with sinus bradycardia in the 60s. Patient is off Cardizem drip. For nursing report, he has been confused. He is getting IV antibiotics. Objective - Vital Signs Vital signs: Vital Signs Temp 97.9 F 12/01/20 04:00 Pulse 71 12/01/20 04:00 Resp 18 12/01/20 04:00 BP 117/63 12/01/20 04:00 Pulse Ox 95 12/01/20 04:00 Intake & Output 11/30/20 12/01/20 12/01/20 18:59 06:59 18:59 Intake Total 360 Output Total 300 500 Balance 60 -500 Weight 53 kg Intake: Oral 360 Output: Urine 300 500 Other: Voiding Method Indwelling Catheter Indwelling Catheter # Voids 1 # Bowel Movements 1 - Exam Patient is awake, alert, states it is a hospital in [facility]. He could not tell the month or year. He knows name of the current president [place]. Speech and language functions are normal. No aphasia or dysarthria. Patient's pupils are round and reacting, visual griffin appears full, face is symmetric and tongue protrudes the midline. Muscle strength shows normal strength of the biceps, triceps and engine lathe operator. He did not cooperate with deltoid testing or lower extremity testing. Patient started arguing about why he should cooperate with t he examination. - Labs CBC & Chem 7: 11/30/20 06:15 11/30/20 06:15 Labs: Abnormal Lab Results - Last 24 Hours (Table) 11/30/20 11/30/20 12/01/20 Range/Units 06:15 20:08 06:07 POC Glucose (mg/dL) 102 H 109 H (75-99) mg/dL Procalcitonin 0.25 H (0.02-0.09) ng/mL Microbiology - Last 24 Hours (Table) 11/28/20 18:30 Urine Culture - Final Urine,Clean Catch Assessment and Plan Assessment: Encephalopathy probably due to acute UTI, much improved. Pneumocephalus of unknown exact etiology (unknown duration). Had fall about fall 2 weeks ago and possible cause but not definitive.---Pneumocephalus resolved on repeat images. No evidence of facial bone fracture. History of falls Cervical spondylosis (mild to moderate over left C3-C4 and moderate over C5-C6) Lumbosacral spondylosis (with mild compression fracture over L1-L2 L3-L4 on CT) Bilateral lower extremity paresis with spasticity. 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 Patient's mentation has much improved. He is fairly well oriented. Examination is stable. Continue folic acid 1mg daily since he has low normal. Continue baclofen 5 mg 1 tablet twice a day. Orthopedic team is consulted and recommend conservative management. Cardiology is consulted regarding the patient atrial fibrillation. He is currently on Eliquis 5mg 1 tab bid Continue Lipitor 20mg qhs for secondary stroke prophylaxis. We'll defer the rest of the medical management to the primary team. On discharge the patient needs to follow-up with a neurologist as well neurosu rgeon within 1-2 weeks. telemetry monitoring showing sinus rhythm, sinus tachycardia in 100s, PVCs and PACs. Awaiting transfer to [facility], when insurance authorizes. Neurologically clear.we will sign off. Please reconsult if any questions. WORK-UP: * Ammonia level is less than 9 * TSH is 2.530 * Vitamin B12: 639 * Serum Folate: 6.9 * Cordero virus PCR was not detected * Urinalysis is suggestive of urinary tract infection. * CT of the head is reported as pneumocephalus of uncertain etiology. Trauma was favored given the distribution including extracranial jet blade polisher space, intradural suprasellar cistern region, right carotid siphon on region and suspected extradural upper spinal canal. Atrophy with chronic-appearing white matter changes. I personally spoke with the reading radiologist regarding the findings and reviewed images. * Repeat CT of the head is reported as resolution of previous pneumocephalus. Atrophy with periventricular white matter ischemic type changes. Some l imitation due to motion artifact. * CT of cervical spine was reported as no acute osseous abnormality. Diffuse degenerative disc changes. It is reported as mild to moderate over C3-C4 on the left and moderate over C5-C6 bilaterally. * Facial x-ray is reported as no evidence for facial bone fracture. * CT cervical spine and the thoracic spine is reported as what's deformity noted at T6, T7, L1 and mildly along the anterior/superior endplate of L4. These are indeterminate age. Suspicious change to sit suggest acute change are not identified however. Degenerative disks changes in the low thoracic spine and lower lumbar spine discussed above. Mild anterior thecal sac compression due to endplate changes at L3 and L4. Correlate for fecal impaction at the rectum. Acute suspicion osseous change are not evident. * MRI the brain is reported as suboptimal study with moderate diffuse cerebral atrophy and chronic small vessel ischemic change along with old left appear parietal lobe posterior watershed infarct R redemonstrated. No MRI evidence for recent infarct. Pneumocephalus suspected clinically is better evaluated on a CT versus MRI. * Routine EEG on 11/23/2020 is abnormal. The background slowing suggestive of mild encephalopathy. There are no focal slowing, epileptiform discharges or seizure on the EEG.
[2020-12-01] MEDS: PANTOPRAZOLE 40 MG/10 ML VIAL IV SCH (11:06)
[2020-12-01] MEDS: AMIODARONE 200 MG TAB PO SCH ×2 (11:07→21:22)
[2020-12-01] MEDS: APIXABAN 5 MG TAB PO SCH ×2 (11:07→21:22)
[2020-12-01] MEDS: METOPROLOL TARTRATE 12.5 MG TAB PO SCH ×2 (11:07→21:22)
[2020-12-01] MEDS: BACLOFEN 10 MG TAB PO SCH ×2 (11:07→21:22)
[2020-12-01] MEDS: FOLIC ACID 1 MG TAB PO SCH (11:08)
[2020-12-01 11:42] LABS: Glucose,Whole Blood 124 mg/dL (75-99)
--- NOTE | 2020-12-01 15:01 | P.PN ---
Subjective Progress Note Date: 12/01/20 Follow-up for acute kidney injury. Objective - Vital Signs Vital signs: Vital Signs Temp 97.9 F 12/01/20 04:00 Pulse 71 12/01/20 04:00 Resp 18 12/01/20 04:00 BP 117/63 12/01/20 04:00 Pulse Ox 95 12/01/20 04:00 Intake & Output 11/30/20 12/01/20 12/01/20 18:59 06:59 18:59 Intake Total 360 240 Output Total 300 500 Balance 60 -500 240 Weight 53 kg Intake: Oral 360 240 Output: Urine 300 500 Other: Voiding Method Indwelling Catheter Indwelling Catheter Indwelling Catheter # Voids 1 # Bowel Movements 1 1 - Exam No acute distress S1-S2 heard Decreased breath sounds No edema - Labs CBC & Chem 7: 11/30/20 06:15 11/30/20 06:15 Labs: Abnormal Lab Results - Last 24 Hours (Table) 11/30/20 12/01/20 12/01/20 Range/Units 20:08 06:07 11:37 POC Glucose (mg/dL) 102 H 109 H 124 H (75-99) mg/dL Microbiology - Last 24 Hours (Table) 11/28/20 18:30 Urine Culture - Final Urine,Clean Catch Assessment and Plan Assessment: #1 acute kidney injury secondary to hemodynamic ATN. #2 urinary tract infection #3 metabolic acidosis. #4 suspected CK D3 with a baseline creatinine of 1.7-1.8 MG per DL. Plan: #1 renal function close to baseline. #2 stop IV fluids #3 avoid nephrotoxic agents and hypotensive episodes
[2020-12-01 16:38] LABS: Glucose,Whole Blood 95 mg/dL (75-99)
[2020-12-01] MEDS: ATORVASTATIN 20 MG TAB PO SCH (21:22)
--- NOTE | 2020-12-01 21:41 | PN ---
PROGRESS NOTE DATE OF SERVICE: 12/01/2020 REASON FOR FOLLOWUP: Urinary tract infection. INTERVAL HISTORY: The patient is afebrile. The patient is more awake and alert today. He is breathing comfortably. Denies any chest pain, shortness of breath or cough. Currently on room air. No vomiting or diarrhea reported by the nursing staff. PHYSICAL EXAMINATION: Blood pressure 108/62 with a pulse of 82, temperature 97.5. He is 95% on room air. General description is the an elderly male lying in bed in no distress. RESPIRATORY SYSTEM: Unlabored breathing. Decreased breath sounds at the bases. No wheeze. HEART: S1, S2. Regular rate and rhythm. ABDOMEN: Soft. No tenderness. LABS: No new labs have been obtained today. Urine repeat is negative. DIAGNOSTIC IMPRESSION AND PLAN: Patient with a positive urine culture with drug-resistant Morganella and Gram-negative. Possible mild cystitis. Repeat urine is negative. to be discontinued on discharge. Continue with supportive care. MMODL / IJN: [id number] /
[2020-12-02] MEDS: MIDODRINE 5 MG TAB PO SCH ×2 (06:39→19:01)
--- NOTE | 2020-12-02 09:43 | P.PN ---
Subjective Progress Note Date: 12/02/20 Follow-up for acute kidney injury. Objective - Vital Signs Vital signs: Vital Signs Temp 98.0 F 12/02/20 04:00 Pulse 75 12/02/20 04:00 Resp 16 12/02/20 08:00 BP 109/60 12/02/20 04:00 Pulse Ox 97 12/02/20 04:00 Intake & Output 12/01/20 12/02/20 12/02/20 18:59 06:59 18:59 Intake Total 240 Output Total 700 Balance 240 -700 Weight 49 kg Intake: Oral 240 Output: Urine 700 Other: Voiding Method Indwelling Catheter Indwelling Catheter Indwelling Catheter # Bowel Movements 1 1 - Exam No acute distress S1-S2 heard Decreased breath sounds No edema - Labs CBC & Chem 7: 11/30/20 06:15 11/30/20 06:15 Labs: Abnormal Lab Results - Last 24 Hours (Table) 12/01/20 Range/Units 11:37 POC Glucose (mg/dL) 124 H (75-99) mg/dL Assessment and Plan Assessment: #1 acute kidney injury secondary to hemodynamic ATN. #2 urinary tract infection #3 metabolic acidosis. #4 suspected CK D3 with a baseline creatinine of 1.7-1.8 MG per DL. Plan: #1 renal function close to baseline. Follow-up on today's labs. #2 avoid nephrotoxic agents and hypotensive episodes
[2020-12-02] MEDS: MEROPENEM 1 GM in SODIUM CHLORIDE 0.9% 100 ML IVPB SCH ×2 (11:30→17:17)
[2020-12-02] MEDS: METOPROLOL TARTRATE 12.5 MG TAB PO SCH ×2 (11:30→21:43)
[2020-12-02] MEDS: APIXABAN 5 MG TAB PO SCH ×2 (11:30→21:43)
[2020-12-02] MEDS: AMIODARONE 200 MG TAB PO SCH ×2 (11:31→21:43)
[2020-12-02] MEDS: PANTOPRAZOLE 40 MG/10 ML VIAL IV SCH (11:31)
[2020-12-02] MEDS: FOLIC ACID 1 MG TAB PO SCH (11:31)
[2020-12-02] MEDS: BACLOFEN 10 MG TAB PO SCH ×2 (11:31→21:43)
--- NOTE | 2020-12-02 17:37 | PN ---
PROGRESS NOTE DATE OF SERVICE: 12/02/2020 REASON FOR FOLLOWUP: 1. Urinary tract infection. 2. Diarrhea. INTERVAL HISTORY: The patient is afebrile. The patient is more awake and alert. He is breathing comfortably. The patient did have multiple loose stool per the nurse aide. No vomiting has been reported. The no chest pain, shortness of breath or cough. PHYSICAL EXAMINATION: Blood pressure 116/58 with a pulse of 64, temperature 98. He is 96% on room air. General description is an elderly male lying in bed in no distress. Respiratory system: Unlabored breathing, clear to auscultation anteriorly. Heart S1, S2. Regular rate and rhythm. Abdomen soft, no tenderness. LABS: No new labs have been obtained today. DIAGNOSTIC IMPRESSION AND PLAN: 1. Patient with multidrug resistant positive cultures concerning for asymptomatic UTI, adequately treated. Repeated cultures have been negative. Meropenem will be discontinued. 2. Patient with diarrhea concerning for possible C difficile colitis. Stool for C diff will be obtained. We will add Questran for symptomatic relief. MMODL / IJN: [id number] /
[2020-12-02] MEDS: CHOLESTYRAMINE (WITH SUGAR) 4 GM PACKET PO SCH (19:01)
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
[2020-12-02] MEDS: ATORVASTATIN 20 MG TAB PO SCH (21:43)
[2020-12-02 23:07] VITALS: RESP 18
[2020-12-03] MEDS: MIDODRINE 5 MG TAB PO SCH (06:22)
[2020-12-03 09:07] LABS: Anisocytosis Slight; Basophils % (A) 0 %; Eosinophils # (A) 1.8 k/uL (0-0.7); Eosinophils % (A) 18 %; HCT 34.1 % (39.0-53.0); HGB 11.1 gm/dL (13.0-17.5); Lymphocytes # (A) 1.6 k/uL (1.0-4.8); Lymphocytes % (A) 16 %; MCH 29.2 pg (25.0-35.0); MCHC 32.6 g/dL (31.0-37.0); MCV 89.6 fL (80.0-100.0); Mean Platelet Volume 7.3; Monocytes # (A) 0.5 k/uL (0-1.0); Monocytes % (A) 5 %; Neutrophils # (A) 5.7 k/uL (1.3-7.7); Neutrophils % (A) 59 %; Platelet Count 391 k/uL (150-450); RDW 17.4 % (11.5-15.5); WBC 9.8 k/uL (3.8-10.6)
[2020-12-03 09:12] LABS: Potassium 4.1 mmol/L (3.5-5.1)
[2020-12-03] MEDS: BACLOFEN 10 MG TAB PO SCH (11:12)
[2020-12-03] MEDS: APIXABAN 5 MG TAB PO SCH (11:12)
[2020-12-03] MEDS: PANTOPRAZOLE 40 MG/10 ML VIAL IV SCH (11:13)
[2020-12-03] MEDS: METOPROLOL TARTRATE 12.5 MG TAB PO SCH (11:13)
[2020-12-03] MEDS: FOLIC ACID 1 MG TAB PO SCH (11:13)
[2020-12-03] MEDS: AMIODARONE 200 MG TAB PO SCH (11:13)
[2020-12-03] MEDS: CHOLESTYRAMINE (WITH SUGAR) 4 GM PACKET PO SCH (11:13)
[2020-12-03 11:35] VITALS: BP 100/58; PULSE 67; TEMP 97.8
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
--- NOTE | 2020-12-03 12:58 | P.PN ---
Subjective Patient is seen in follow-up for acute kidney injury on chronic kidney disease. Renal function stable. Nonoliguric. Oral intake fair. No vomiting or diarrhea. Vital signs are stable. General: The patient appeared well nourished and normally developed. HEENT: Head exam is unremarkable. LUNGS: Breath sounds decreased. HEART: Rate and Rhythm are regular. ABDOMEN: Soft, no distention. EXTREMITITES: No edema. Objective - Vital Signs Vital signs: Vital Signs Temp 97.8 F 12/03/20 08:00 Pulse 67 12/03/20 08:00 Resp 18 12/03/20 08:00 BP 100/58 12/03/20 08:00 Pulse Ox 95 12/03/20 08:00 Intake & Output 12/02/20 12/03/20 12/03/20 18:59 06:59 18:59 Output Total 800 Balance -800 Weight 53.5 kg Output: Urine 800 Other: Voiding Method Indwelling Catheter Indwelling Catheter - Labs CBC & Chem 7: 12/03/20 08:24 12/03/20 08:24 Labs: Abnormal Lab Results - Last 24 Hours (Table) 12/03/20 12/03/20 Range/Units 08:24 08:24 RBC 3.80 L (4.30-5.90) m/uL Hgb 11.1 L (13.0-17.5) gm/dL Hct 34.1 L (39.0-53.0) % RDW 17.4 H (11.5-15.5) % Eosinophils # 1.8 H (0-0.7) k/uL Chloride 112 H (98-107) mmol/L Carbon Dioxide 21 L (22-30) mmol/L BUN 31 H (9-20) mg/dL Creatinine 1.88 H (0.66-1.25) mg/dL Calcium 8.0 L (8.4-10.2) mg/dL Microbiology - Last 24 Hours (Table) 11/24/20 20:11 Urine Culture - Final Urine,Clean Catch Morganella morganii Gram Neg Bacilli Assessment and Plan Plan: Assessment: 1. Acute kidney injury secondary to ATN secondary to infection/hemodynamics. Improved. Creatinine in 2017 was 0.96. No records available from 2017 to this admission. 2. UTI s/p antibiotics. 3. Mild metabolic acidosis secondary to acute kidney injury. 4. A. fib with RVR. On oral meds. Cardiology following. Stable. Plan: Encourage oral intake. Avoid nephrotoxins. Follow up outpatient in 1-2 weeks to establish CKD care.
--- NOTE | 2020-12-03 21:50 | P.PN ---
Progress Note - Text Progress Note Date: 12/03/20 REASON FOR FOLLOWUP: 1. Urinary tract infection. 2. Diarrhea. INTERVAL HISTORY: The patient remains to be afebrile. The patient is more awake and alert. He is breathing comfortably. no further diarrhea reported , stool sample not collected, The pt denies chest pain, shortness of breath or cough. PHYSICAL EXAMINATION: Blood pressure 110/50 with a pulse of 60, temperature 98. He is 96% on room air. General description is an elderly male lying in bed in no distress. Respiratory system: Unlabored breathing, clear to auscultation anteriorly. Heart S1, S2. Regular rate and rhythm. Abdomen soft, no tenderness. LABS: No new labs have been obtained today. DIAGNOSTIC IMPRESSION AND PLAN: 1. Patient with multidrug resistant positive cultures concerning for symptomatic UTI, adequately treated. Repeated cultures have been negative. no need for antibiotics on discharge 2. Patient with diarrhea possible antibiotic associated , improved with discontinuation of merrem , questran as needed
--- NOTE | 2020-12-20 13:04 | ECHOF ---
Referral Reason:lv function MEASUREMENTS -------- HEIGHT: 172.7 cm WEIGHT: 54.0 kg BP: 112/67 MV E Manish: 1.33 m/s MV DecT: 198 ms MV A Manish: 1.08 m/s MV E/A Ratio: 1.23 FINDINGS -------- Sinus rhythm. This was a technically difficult study with suboptimal views. Pt. not compliant. Overall left ventricular systolic function is low-normal with, an EF between 50 - 55 %. The right ventricle is normal in size. The left atrium was not well visualized. The right atrium is normal in size. The aortic valve was not well visualized. There is no evidence of aortic regurgitation. There is no evidence of aortic stenosis. The mitral valve was not well visualized. The mitral valve leaflets are mildly thickened. Mild mi tral annular calcification present. Mild mitral regurgitation is present. The tricuspid valve was not well visualized. Mild tricuspid regurgitation present. There is no ev idence of pulmonary hypertension. The right ventricular systolic pressure, as measured by Doppler, is {RVSP}. The pulmonic valve was not well visualized. IVC Not well visulized. There is no pericardial effusion. CONCLUSIONS -------- 1. The mitral valve leaflets are mildly thickened. 2. Mild mitral annular calcification present. 3. Mild mitral regurgitation is present. 4. Mild tricuspid regurgitation present. TRAVELING NURSE: Judy Tim [facility]
--- NOTE | 2020-12-25 07:06 | CDI ---
Documentation Clarification Form Date: 12/25/20 From: Tere Arambula Admit Date: 11/22/2020 09:31:00 AM Patient Name: Kris Jackson Visit Number: [id number] Discharge Date: 12/03/2020 03:16:00 PM ATTENTION: The Clinical Documentation Specialists (CDI) and [facility] Coding Staff appreciate your assistance in clarifying documentation. Please respond to the clarification below the line at the bottom and electronically sign. The CDI & [facility] Coding staff will review the response and follow-up if needed. Please note: Queries are made part of the Legal Health Record. If you have any questions, please contact the author of this message via ITS. Dr. Bradley Gould, Your patient has the documented diagnosis of unspecified CHF in the DS. Additional information regarding the [type, acuity] of CHF is requested. History/Risk Factors: atrial fibrillation, asthma/COPD, falls, UTI's Clinical Indicators: He developed SOB late on 11/26. 11/26 VS/Pulse OX: P 160, R 40, BP 145/72, O2 89 RA BNP: none available Echocardiogram Results: Overall left ventricular systolic function is low- normal with, an EF between 50 - 55 %. 11/27 Chest X Ray: There is new bilateral moderate pulmonary edema compared to old exam and could be developing RDS. Congestive heart failure not excluded. Treatment: IV Lasix 40 mg once ordered twice, CXR, Cardizem and Heparin gtt, cardio reconsulted. In your professional opinion, can you please clarify the acuity and type of CHF if known? [ ] Acute Systolic Heart Failure (reduced EF) [ ] Acute on Chronic Systolic Heart Failure (reduced EF) [ ] Acute Diastolic Heart Failure (preserved EF) [ ] Acute on Chronic Diastolic Heart Failure (preserved EF) [ ] Other, please specify [ ] Unable to determine No CHF MTDD
== END 2020-12-03 15:16 | DRG 70 ==
LOC: EC 07:03 → UNDOADMIN 09:31 → 3SCARD 09:31
PROVIDERS: ADMIT Internal Medicine; ATTEND Internal Medicine
PROC: 5A2204Z Restoration of Cardiac Rhythm, Single (ICD-10-PCS; principal; 2020-11-22)
DX: G93.89 Other specified disorders of brain (principal); G93.41 Metabolic encephalopathy; N17.0 Acute kidney failure with tubular necrosis; R64 Cachexia; E87.2 Acidosis; E44.0 Moderate protein-calorie malnutrition; Z68.1 Body mass index [BMI] 19.9 or less, adult; I48.20 Chronic atrial fibrillation, unspecified; N39.0 Urinary tract infection, site not specified; Z16.24 Resistance to multiple antibiotics; E87.0 Hyperosmolality and hypernatremia; I12.9 Hypertensive chronic kidney disease with stage 1 through stage 4 chronic kidney disease, or unspecified chronic kidney disease; I95.9 Hypotension, unspecified; L89.312 Pressure ulcer of right buttock, stage 2; G82.20 Paraplegia, unspecified; L89.622 Pressure ulcer of left heel, stage 2; N18.30 Chronic kidney disease, stage 3 unspecified; J44.9 Chronic obstructive pulmonary disease, unspecified; Z20.822 Contact with and (suspected) exposure to COVID-19; B96.4 Proteus (mirabilis) (morganii) as the cause of diseases classified elsewhere; R00.1 Bradycardia, unspecified; R19.7 Diarrhea, unspecified; N27.0 Small kidney, unilateral; I34.0 Nonrheumatic mitral (valve) insufficiency; G89.29 Other chronic pain; M51.36 Other intervertebral disc degeneration, lumbar region; M51.34 Other intervertebral disc degeneration, thoracic region; M47.812 Spondylosis without myelopathy or radiculopathy, cervical region; M47.814 Spondylosis without myelopathy or radiculopathy, thoracic region; M47.817 Spondylosis without myelopathy or radiculopathy, lumbosacral region; M19.90 Unspecified osteoarthritis, unspecified site; R26.9 Unspecified abnormalities of gait and mobility; S06.0X9D Concussion with loss of consciousness of unspecified duration, subsequent encounter; Z79.82 Long term (current) use of aspirin; Z79.899 Other long term (current) drug therapy; Z91.81 History of falling; Z87.81 Personal history of (healed) traumatic fracture; Z86.73 Personal history of transient ischemic attack (TIA), and cerebral infarction without residual deficits; Z87.438 Personal history of other diseases of male genital organs; Z96.652 Presence of left artificial knee joint; Z87.311 Personal history of (healed) other pathological fracture; Z98.890 Other specified postprocedural states; Z80.0 Family history of malignant neoplasm of digestive organs; W19.XXXD Unspecified fall, subsequent encounter; Y92.524 Gas station as the place of occurrence of the external cause; Z81.8 Family history of other mental and behavioral disorders; Z84.89 Family history of other specified conditions
CPT/HCPCS: 36415; 70150; 70450; 70486; 70551; 71045; 72125; 72128; 72131; 76770; 80048; 80053; 81001; 82140; 82607; 82746; 83605; 83690; 83735; 84145; 84443; 84484; 85025; 85610; 85730; 86140; 86850; 86900; 86901; 87077; 87086; 87186; 87635; 93005; 93306; 94760; 95816; 96361; 96365; 96366; 96368; 96375; 99152; 99285